=== PATIENT | female | born 1980 | race Caucasian/White ===

== ENCOUNTER 2020-10-16 16:10 | Outpatient (REF) | payer BC, SELFPAY ==
--- NOTE | 2020-10-16 13:45 | PAPFT_PTH ---
PATIENT: Paulette Deleon LOC: N U#:[id number] AGE/SX: 40/F ROOM: RE10/16/[address]: KIKI Chapman : 1980 BED: DIS: 10/16/2020 SPEC #: [id number] RECD: 10/16/20 17:52 STATUS: ALINA REQ #: [id number] ELIAS: 10/16/20 13:[address]: Emmy Dao DEPT: [facility] Cytology RECD BY: Maria Luisa Douglass ENTERED: 10/16/20 17:52 SP TYPE: PAPFT OTHR DR: Odalys Macias Tissues: 1 - CX/ENDOCX FOR PAP SMEARS Procedures: PAP THIN PREP/[facility] Screening HPV DNA PROBE Comments: [id number]
== END 2020-10-16 16:11 | disposition home or self-care (01) ==
LOC: LBN 16:10
PROVIDERS: PCP Family Medicine; Visit Provider Nurse Practitioner Family
DX: Z12.4 Encounter for screening for malignant neoplasm of cervix (principal); Z11.51 Encounter for screening for human papillomavirus (HPV)
CPT/HCPCS: 88142; 87624

== ENCOUNTER 2020-10-23 09:06 | Outpatient (REF) | payer BC, SELFPAY ==
[2020-10-23 17:04] LABS: Calculated LDL 116 mg/dL (<100); Cholesterol 183 mg/dL (<200); Glucose 98 mg/dL (74-106); HDL Cholesterol 57 mg/dL (40-60); Triglyceride 54 mg/dL (<150)
== END 2020-10-23 09:07 | disposition home or self-care (01) ==
LOC: NCHCN 09:06
PROVIDERS: PCP Family Medicine; Visit Provider Internal Medicine
DX: Z00.00 Encounter for general adult medical examination without abnormal findings (principal); E66.9 Obesity, unspecified
CPT/HCPCS: 80061; 82947

== ENCOUNTER 2021-03-16 19:57 | Outpatient (REF) | payer OTHER, SELFPAY ==
[2021-03-17 13:41] LABS: COVID-19 RT-PCR UVMMC Result Negative (Negative)
== END 2021-03-16 19:58 | disposition home or self-care (01) ==
LOC: NCHCN 19:57
PROVIDERS: PCP Family Medicine; Visit Provider Internal Medicine
DX: Z20.822 Contact with and (suspected) exposure to COVID-19 (principal)
CPT/HCPCS: U0003

== ENCOUNTER 2021-08-13 16:24 | Outpatient (REF) | payer OTHER, SELFPAY ==
[2021-08-13 15:34] LABS: CREATININE 0.8 mg/dL (0.55-1.02)
== END 2021-08-13 16:25 | disposition home or self-care (01) ==
LOC: NCHCN 16:24
PROVIDERS: PCP Family Medicine; Visit Provider Internal Medicine
DX: U07.1 COVID-19 (principal)
CPT/HCPCS: 82565

== ENCOUNTER → 2021-12-03 03:08 | Outpatient (CLI) | payer OTHER, SELFPAY ==
--- NOTE | 2021-12-03 07:45 | DI.MAMMO_ITS ---
Exam(s) MAMMO SCREENING EXAM: MAMMO SCREENING CLINICAL HISTORY: screening. TECHNIQUE: Bilateral full field digital CC and MLO mammographic images were obtained with 3D tomosyn thesis and utilizing computer aided detection (CAD). COMPARISON: No priors. This is a baseline mammogram on this 41-year-old patient.. FINDINGS: Benign-appearing lymph nodes are noted in the upper outer quadrant of both breasts. There are no spiculated masses nor malignant appearing microcalcification groups. There is no significant architectural distortion nor skin thickening-retraction. IMPRESSION: No radiographic evidence of malignancy. BI-RADS Category 1 - Negative Breast Density - Category C - Heterogeneously dense Breast density Category C or D implies that the patient has dense breast tissue. Dense breast tissue can make it harder to find cancer on a mammogram. Dense breast tissue is also associated with an incr eased risk of breast cancer. This information about the result of the mammogram report was provided to the patient to raise their awareness. Use this report when you speak with the patient about their risks for breast cancer, which includes their family history. At that time, you may recommend additional screening tests (Ultrasoun d or MRI) as these tests may add significant information. A negative radiographic report should not delay biopsy if a dominant or clinically suspicious mass is present. Up to ten percent of cancers are not identified on mammography. A negative report may reinforce clinical impression. Adenosis and dense breasts may obscure an underlying neoplasm. False positive reports average 6 to 10%. Patient will receive a letter notifying them of these results.
== END ==
PROVIDERS: PCP Family Medicine; Visit Provider Nurse Practitioner Family
DX: Z12.31 Encounter for screening mammogram for malignant neoplasm of breast (principal)
CPT/HCPCS: 77063; 77067

== ENCOUNTER 2022-01-18 09:03 | Emergency (ER) | payer OTHER, SELFPAY ==
--- NOTE | 2022-01-18 09:00 | RT.EKG_ITS ---
APPROVED REPORT Exam: Resting ECG Reason for Exam: dizzy Patient Location: E HR:113 bpm ECG Measurements Heart Rate 113 AXIS VA 154 P 72 QRSd 92 QRS 7 QT 335 T 10 QTc 459 Conclusion Sinus tachycardia...rate> 99 sinus tachycardia 113, normal axis, no STEMI, nondiagnostic EKG
[2022-01-18 09:06] VITALS: BP 158/99; PULSE 117; RESP 16; TEMP 36.7
--- NOTE | 2022-01-18 09:58 | W.ED.GENAD ---
Discharge Plan Disposition Patient Disposition: HOME Condition: Stable Discharge Details Clinical Impression: Lightheadedness Primary Care Provider: Nate Pool ED Provider: Roula Nunez Home Meds and New Rx's Prescriptions: Continued bupropion HCl [Wellbutrin XL] 150 mg tablet extended release 24 hr 150 mg PO QAM ibuprofen 200 MG capsule 200 - 400 mg PO Q6H PRN Discharge Instructions Additional Instructions: Please return immediately to the emergency department if you develop any new or worsening symptoms, if your condition does not improve as expected, or if you become otherwise concerned. It is extremely important that you call soon as possible to make an appointment to be seen in follow-up for this visit by your primary care doctor. Referrals: Nate Pool MD [Primary Care Provider] - Discharge Data Discharge Date/Time-TO BE ENTERED AT DEPARTURE: 01/18/22 13:45 Medical Decision Making Concern for dehydration, metabolic/electrolyte derangement, diffuse skeletal shoulder pain, less likely acute coronary syndrome, pulmonary embolism, other. Exam/history at this time is not consistent with pulmonary infection,, pneumothorax, acute aortic pathology, acute CVA, upper extremity DVT, other acute neurovascular pathology of the left upper extremity, septic arthritis. Plan for EKG, telemetry, IV placement, screening labs, IV fluid hydration. Will monitor and reassess. If initial work-up negative plan for repeat troponin. Patient reports feeling significantly improved and at baseline after IV fluid hydration. She denies having any symptoms. Labs reviewed, troponin negative, D-dimer negative, magnesium 1.7, will replete with p.o. mag. Repeat troponin negative. Patient remains symptom-free. Pt is low risk for ACS by HEART score. I discussed plan to order outpatient stress test, patient states that she would prefer to follow-up with her PCP and have stress test ordered from that visit. I had a discussion with Patient regarding return to emergency department precautions, home care, and importance of outpatient follow-up. Pt verbalizes understanding of the plan and is amenable. Patient discharged to home with clear plan for outpatient follow-up. All questions were answered. Disposition decision was made weighing the risks and benefits of hospitalization versus outpatient treatment, the risk for further decompensation, and the patient's wishes. Medical Records Medical records reviewed: Yes I reviewed the patient's medical records. Lab Data Lab results reviewed: Yes I reviewed the patient's lab results. Labs: Laboratory Tests Range/Units 01/18/22 01/18/22 01/18/22 10:00 10:23 10:23 WBC (4.4-10.8) 10^3/uL 7.18 RBC (3.93-5.22) 10^6/uL 4.47 Hgb (11.2-15.7) g/dL 13.3 Hct (36.0-46.0) % 40.0 MCV (80-95) fL 90 MCH (27.0-33.0) pg 29.8 MCHC (32.0-36.0) % 33.3 RDW (11.7-14.6) % 12.2 Plt Count (130-400) 10^3/uL 318 MPV (8.0-11.0) fL 10.1 Immature Gran % 0.4 Neutrophils % 63.4 Lymphocytes % 29.4 Monocytes % 5.4 Eosinophils % 0.8 Basophils % 0.6 Nucleated RBC % (0.0-0.3) % 0.0 Absolute Neutrophils (1.2-6.7) 10^3/uL 4.55 Absolute Lymphocytes (1.2-3.4) 10^3/uL 2.11 Absolute Monocytes (0.1-0.8) 10^3/uL 0.39 Absolute Eosinophils (0.0-0.7) 10^3/uL 0.06 Absolute Basophils (0.0-0.2) 10^3/uL 0.04 D-Dimer (<500) ng/mlFEU Sodium (136-145) mmol/L 139 Potassium (3.5-5.1) mmol/L 3.7 Chloride (98-107) mmol/L 103 Carbon Dioxide (21.0-32.0) mmol/L 26.7 Anion Gap (3-11) mmol/L 9.3 BUN (7-18) mg/dL 13 Creatinine (0.55-1.02) mg/dL 0.9 Est GFR (CKD-EPI 2020) (mL/min/1.73m2) 81.86 Glucose (74-106) mg/dL 115 H Calcium (8.5-10.1) mg/dL 9.5 Magnesium (1.8-2.4) mg/dL 1.7 L Total Bilirubin (0.2-1.0) mg/dL 0.2 AST (15-37) U/L 16 ALT (14-59) U/L 23 Alkaline Phosphatase (46-116) U/L 62 Troponin I (<or=60) ng/L < 50 Total Protein (6.4-8.2) g/dL 8.6 H Albumin (3.4-5.0) g/dL 3.9 TSH (0.36-3.74) uIU/mL 1.12 Urine Color (Yellow) Yellow Urine Clarity (Clear) Sl Cloudy Urine pH (5-8) 6.5 Ur Specific Philip (1.005-1.025) 1.020 Urine Protein (Negative) mg/dL Negative Urine Ketones (Negative) mg/dL Negative Urine Blood (Negative) Negative Urine Nitrite (Negative) Negative Urine Bilirubin (Negative) Negative Urine Urobilinogen (Up TO 0.2) EU/dL 0.2 Ur Leukocyte Esterase (Negative) Trace H Urine RBC (0-2) HPF Negative Urine WBC (0-5) HPF 5-10 Ur Epithelial Cells (Negative) HPF Moderate Urine Crystals (Negative) HPF Negative Urine Bacteria (Negative) HPF Few Urine Casts (Negative) LPF Negative Urine Mucus (Negative) Negative Urine Other (Negative) Negative Ur Culture Indicated? No/Sq. Contamination Urine Glucose (Negative) mg/dL Negative Range/Units 01/18/22 01/18/22 10:23 12:45 WBC (4.4-10.8) 10^3/uL RBC (3.93-5.22) 10^6/uL Hgb (11.2-15.7) g/dL Hct (36.0-46.0) % MCV (80-95) fL MCH (27.0-33.0) pg MCHC (32.0-36.0) % RDW (11.7-14.6) % Plt Count (130-400) 10^3/uL MPV (8.0-11.0) fL Immature Gran % Neutrophils % Lymphocytes % Monocytes % Eosinophils % Basophils % Nucleated RBC % (0.0-0.3) % Absolute Neutrophils (1.2-6.7) 10^3/uL Absolute Lymphocytes (1.2-3.4) 10^3/uL Absolute Monocytes (0.1-0.8) 10^3/uL Absolute Eosinophils (0.0-0.7) 10^3/uL Absolute Basophils (0.0-0.2) 10^3/uL D-Dimer (<500) ng/mlFEU 340 Sodium (136-145) mmol/L Potassium (3.5-5.1) mmol/L Chloride (98-107) mmol/L Carbon Dioxide (21.0-32.0) mmol/L Anion Gap (3-11) mmol/L BUN (7-18) mg/dL Creatinine (0.55-1.02) mg/dL Est GFR (CKD-EPI 2020) (mL/min/1.73m2) Glucose (74-106) mg/dL Calcium (8.5-10.1) mg/dL Magnesium (1.8-2.4) mg/dL Total Bilirubin (0.2-1.0) mg/dL AST (15-37) U/L ALT (14-59) U/L Alkaline Phosphatase (46-116) U/L Troponin I (<or=60) ng/L < 50 Total Protein (6.4-8.2) g/dL Albumin (3.4-5.0) g/dL TSH (0.36-3.74) uIU/mL Urine Color (Yellow) Urine Clarity (Clear) Urine pH (5-8) Ur Specific Philip (1.005-1.025) Urine Protein (Negative) mg/dL Urine Ketones (Negative) mg/dL Urine Blood (Negative) Urine Nitrite (Negative) Urine Bilirubin (Negative) Urine Urobilinogen (Up TO 0.2) EU/dL Ur Leukocyte Esterase (Negative) Urine RBC (0-2) HPF Urine WBC (0-5) HPF Ur Epithelial Cells (Negative) HPF Urine Crystals (Negative) HPF Urine Bacteria (Negative) HPF Urine Casts (Negative) LPF Urine Mucus (Negative) Urine Other (Negative) Ur Culture Indicated? Urine Glucose (Negative) mg/dL ECG Data Attestation: I personally reviewed and interpreted this ECG (s) as follows: Interpretation: EKG shows sinus tachycardia 113, normal axis, no STEMI, nondiagnostic EKG HPI General Mode of arrival: ambulatory. Date/Time Provider Initiated Documentation: 01/18/22 09:34. Limitations to Documentation: no limitations. Information obtained by: patient, RN notes reviewed and old records reviewed. HPI Narrative: Paulette Deleon is a 41-year-old woman with history of hemorrhagic stroke, anxiety presenting to emergency department with lightheadedness. Patient reports that she woke up this morning and went to work as usual. She notes while at work she felt unusually tired and had some mild soreness in her left shoulder. Patient reports that its not unusual for her to have some soreness in her shoulders or back from sleeping in a certain position, but she states that the soreness in her left shoulder was something she did not recall having in the past. She reports it was very mild. She also noticed tingling in the fingers of both of her hands. Patient states that she felt unusually tired and decided that it would be best if she left work and went home. She states that while she was driving home she had a sensation that she would pass out. She had no vertigo/spinning sensation, no palpitations, no pain at that time. Patient states that at that time she decided to come to the emergency department. She denies any current pain other than mild soreness in her left shoulder as above, denies fever, cough, shortness of breath, vomiting, diarrhea, numbness, weakness, rash. Patient reports that in 2018 she had shingles in the left side of her face and had a small amount of bleeding in her brain in the occipital region. 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 Patient reports that no cause of the bleeding was ever determined, and it was unclear whether was related in someway to her shingles infectious process. Patient states that none of her symptoms feel similar to that at this time. She denies recent illness. Has had normal appetite recently. Patient reports that she typically drinks 6 or so alcoholic beverages a week, but over the past few days drank more than usual due to multiple social events occurring. Denies recreational drug use, denies tobacco/nicotine use. Related Data Home Medications Medication Instructions Recorded Confirmed ibuprofen 200 mg capsule 200 - 400 mg PO Q6H PRN 12/26/15 08/04/18 bupropion HCl 150 mg 24 hr tablet, 150 mg PO QAM 10/16/20 extended release (Wellbutrin XL) Allergies Allergy/AdvReac Type Severity Reaction Status Date / Time cephalexin [From Keflex] Allergy Rash Verified 10/16/20 15:17 shrimp Allergy Hives Verified 10/16/20 15:17 General Stated Complaint: GenMedical AL: 3 Review of Systems Narrative: Constitutional: denies fevers, reports fatigue Eyes: denies eye pain ENT: denies ear pain, dental pain, sore throat Cardiovascular: denies chest pain, edema, reports lightheadedness Respiratory: denies SOB, cough GI: denies abdominal pain, vomiting, diarrhea : denies flank pain MSK: Reports mild left shoulder pain, denies back pain, neck pain, other arthralgias, myalgias Skin: denies rash Neuro: denies headaches, numbness, weakness PFSH All Active Problems Lightheadedness (Acute) Missed menses (Acute) Anxiety (Chronic) Stroke, hemorrhagic (Acute) 2018 Family History Father Essential hypertension Sister Essential hypertension Social History Smoking/Tobacco Use Status: Never Smoking risk assessment performed?: Yes Alcohol Intake: current Alcohol Intake frequency: a few times a week Alcohol type: beer Drug use: Never Do you feel safe at home: Yes Do you feel safe in your relationship?: Yes Exam Narrative Exam Narrative: Constitutional: well and [id number], pleasant, conversing normally HENT: head atraumatic/normocephalic/normal inspection, mucous membranes moist Eyes: conjunctiva normal, sclera normal, pupils 3mm b/l, ERRLA, EOMI, no nystagmus Neck: no stridor, normal ROM, trachea midline Chest: normal inspection Resp: normal work of breathing, speaking in full sentences Cardio: normal rate, normal rhythm Back: normal inspection, no rash Skin: warm, dry, normal color, no rash Neuro: alert, not altered, bss solution architect 2-12 intact, motor 5 out of 5 throughout, normal tone Ext: no edema, no posterior calf tenderness to palpation, mild posterior tenderness of the left shoulder that reproduces pain, no edema, full range of motion of the shoulder, radial pulses intact Psych: normal mood, normal affect, normal behavior Course Vital Signs Vital signs: Vital Signs Temperature 36.7 C 01/18/22 09:06 Pulse 117 H 01/18/22 09:06 Respiratory Rate 16 01/18/22 09:06 Blood Pressure 158/99 H 01/18/22 09:06 Temperature 36.7 C 01/18/22 09:06 Temperature Source Tympanic 01/18/22 09:06 Pulse 117 H 01/18/22 09:06 Respiratory Rate 16 01/18/22 09:06 Respiratory Effort Non-Labored 01/18/22 09:19 Respiratory Depth Normal 01/18/22 09:19 Respiratory Pattern Normal 01/18/22 09:19 Blood Pressure 158/99 H 01/18/22 09:06 Blood Pressure Position Sitting 01/18/22 09:06 Oxygen Delivery Method Room Air 01/18/22 09:06 Oxygen Flow Rate 0 01/18/22 09:06 PAWSS Have you Been Recently Intoxicated or Drunk Within the Last 30 days?: Yes Have you Ever Experienced Previous Episodes of Alcohol Withdrawal?: No Have you ever Experienced Withdrawal Seizures?: No Have you ever Experienced Delirium Tremens(DT)s?: No Have you ever undergone Alcohol Rehabilitation Treatment (i.e, inpt ot outpatient treatment programs)?: No Have you ever Experienced Blackouts?: No Have you ever Combined Alcohol with other Downers within the last 90 days?: No Have you ever Combined Alcohol with any other Substance of Abuse during the last 90 days?: No Positive Blood Alcohol level on Presentation? [PCS.BAL]: No Evidence of Increased Autonomic Activity (i.e. HR>120, tremor, sweating, agitation, nausea)?: No Result: 1
[2022-01-18 10:21] LABS: Bilirubin Negative (Negative); Blood Negative (Negative); Clarity Sl Cloudy (Clear); Glucose Negative (Negative); Ketones Negative (Negative); Leukocyte Esterase Trace (Negative); Nitrite Negative (Negative); Urobilinogen 0.2 EU/dL (Up TO 0.2); pH 6.5 (5-8)
[2022-01-18 10:37] LABS: Abs Immature Grans 0.03 10^3/uL (0.0-0.06); Absolute Basophil Count 0.04 10^3/uL (0.0-0.2); Absolute Eosinophil Count 0.06 10^3/uL (0.0-0.7); Absolute Lymphocyte Count 2.11 10^3/uL (1.2-3.4); Absolute Monocyte Count 0.39 10^3/uL (0.1-0.8); Absolute Neutrophil Count 4.55 10^3/uL (1.2-6.7); Basophils % 0.6; Eosinophils % 0.8; HGB 13.3 g/dL (11.2-15.7); Immature Grans % 0.4; Lymphocytes % 29.4; MCH 29.8 pg (27.0-33.0); MCHC 33.3 % (32.0-36.0); MCV 90 fL (80-95); MPV 10.1 fL (8.0-11.0); Monocytes % 5.4; Neutrophils % 63.4; Platelet Count 318 10^3/uL (130-400); RBC 4.47 10^6/uL (3.93-5.22); RDW 12.2 % (11.7-14.6); RDW-SD 39.7 fL; WBC 7.18 10^3/uL (4.4-10.8)
[2022-01-18 10:41] LABS: Bacteria Few HPF (Negative); C & S Indicated? No/Sq. Contamination; Casts Negative LPF (Negative); Crystals Negative HPF (Negative); Epithelial Cells Moderate HPF (Negative); Mucus Negative (Negative); Other Cells Negative (Negative); RBC Negative HPF (0-2)
[2022-01-18] MEDS: Normal Saline 1,000 ML 1000 ML IV (10:54)
[2022-01-18 11:02] LABS: ALT 23 U/L (14-59); AST 16 U/L (15-37); Albumin 3.9 g/dL (3.4-5.0); Alkaline Phosphatase 62 U/L (46-116); Anion Gap 9.3 mmol/L (3-11); BUN 13 mg/dL (7-18); Bilirubin, Total 0.2 mg/dL (0.2-1.0); CO2 26.7 mmol/L (21.0-32.0); CREATININE 0.9 mg/dL (0.55-1.02); Calcium 9.5 mg/dL (8.5-10.1); Chloride 103 mmol/L (98-107); Estimated GFR 81.86 (mL/min/1.73m2); Glucose 115 mg/dL (74-106); Magnesium 1.7 mg/dL (1.8-2.4); Potassium 3.7 mmol/L (3.5-5.1); Sodium 139 mmol/L (136-145); TSH (W/Ref FT4) 1.12 uIU/mL (0.36-3.74); Total Protein 8.6 g/dL (6.4-8.2); Troponin I < 50 ng/L (<or=60)
[2022-01-18 11:13] LABS: D-Dimer 340 ng/mlFEU (<500)
[2022-01-18] MEDS: Magnesium Oxide 400 MG TAB PO (11:51)
[2022-01-18 13:14] LABS: Troponin I < 50 ng/L (<or=60)
== END 2022-01-18 13:45 | disposition home or self-care (01) ==
PROVIDERS: Emergency Provider Student in an Organized Health Care Education/Training Program; PCP Internal Medicine
DX: R42 Dizziness and giddiness (principal); Z86.73 Personal history of transient ischemic attack (TIA), and cerebral infarction without residual deficits
CPT/HCPCS: 36415; 80053; 93005; 96360; 99284; 81003; 81015; 83735; 84443; 84484; 85025; 85379; 93010; 99282

== ENCOUNTER 2023-03-09 14:01 | Outpatient (REF) | payer BC, SELFPAY | END 2023-03-09 14:02 | disposition home or self-care (01) | LOC: NCHCN 14:01 | PROVIDERS: PCP Internal Medicine; Visit Provider Family Medicine | DX: Z01.419 Encounter for gynecological examination (general) (routine) without abnormal findings (principal) | CPT/HCPCS: 87480; 87510; 87660 ==

== ENCOUNTER 2023-12-16 00:48 | Outpatient (CLI) | payer BC, SELFPAY ==
--- OUTSIDE RECORDS SUMMARY | 2023-12-16 01:00 | XMS_ITS | Encounter Summary ---
Author Organization [facility] Address [address] [place] [address] Care Team Providers Care Investigation Officer Name Role Phone Odalys Macias MD Primary Care Provider [phone] Encounter Details Date Type Department Care Team (Late st Contact Info) Description 10/20/2020 Lab Requisition [facility] Pathology & Laboratory Medicine - [address] [address] Emmy Dao, [facility] [address] [place] [phone] Encounter for other general examination Social History Tobacco Use Types Packs/Day Years Used Date Smoking Tobacco: Never Smokeless Tobacco: Never Alcohol Use Standard Drinks/Week Comments Yes 0 (1 standard drink = 0.6 oz pur e alcohol) social Interpersonal Safety Answer Date Record ed Physically Hurt Never 11/04/2019 Verbally Threaten Not on file 11/04/2019 Sex and Gender Information Value Date Recorded Sex Assigned at Not on file Gender Identity Not on file Sexual Orientation Not on file documented as of this encounter Functional Status Functional Status Response Date of Assess ment Are you deaf or do you have serious difficulty h earing? No 08/18/2017 Are you blind or do you have serious difficulty seeing, even when wearing glasses? No 08/18/2017 Do you have serious difficul ty walking or climbing stairs? (5 years old or older) No 08/18/2017 Do you have difficulty dress ing or bathing? (5 years old or older) No 08/18/2017 Because of a physical, menta l, or emotional condition, does this person have difficulty doing errands alone such as visiting a doctor's office or shopping? No 09/20/2017 Cognitive Status Response Date of Assessm ent Because of a physical, menta l, or emotional condition, does this person have serious difficulty concentrating, remembering, or making decisions? No 09/20/2017 documented as of this encounter Plan of Treatment Not on file documented as of this encounter Procedures Procedure Name Priority Date/Time Associated Diagnosis Comments PAP TEST Today 10/16/2020 13:45 EDT Encounter for other general examination HPV DNA DETECTION WITH GENOTYPING, PCR Today 10/16/2020 13:45 EDT Encounter for other general examination documented in this encounter Results * HUMAN PAPILLOMAVIRUS (HPV) DETECTION-HIGH RISK TYPES (10/16/2020 13:45 EDT) HPV other High Risk types, PCR Negative Negative 10/30/2020 14:45 EDT [facility] Comment:No E6 or E7 mRNA is detected from HPV types 16,18,31,33,35,39,45,51,52,56,58,59,66, and 68 by catering coordinator mediated amplification. Papanicolaou smear specimen (specimen) CERVIX UTERI STRUCTURE / Unknown 10/16/2020 13:45 EDT 10/29/2020 10:50 EDT Emmy Dao FRAME COVERER MICROBIOLOGY - GENER AL ORDERABLES [facility] [address] [place] [address] * PAP TEST (10/16/2020 13:45 EDT) Specimens A. Cervix and/or Endocervix , ThinPrep Imaging System with Manual Evaluation 10/30/2020 14:45 EDT [facility] Specimen Adequacy Satisfactory for Evaluation - transformation zone component present 10/30/2020 14:45 EDT [facility] General Categorization Negative for intraepithelial lesion or malignancy 10/30/2020 14:45 EDT [facility] Attestation . 10/30/2020 14:45 EDT [facility] at 1444 Clinical History See below 10/31/19 14:45 EDT [facility] HPV The result for the Human Papillomavirus (HPV) Detection-High Risk Types is Negative. No E6 or E7 mRNA is detected from HPV types 16,18,31,33,35,39 ,45,51,52,56,58,5 9,66, and 68 by catering coordinator mediated amplification.Mya ting was performed on specimen [id number] and was resulted on 10/30/2020 1345 EDT by CHRISTINA, LAB INSTRUMENT RESULTS IN 10/30/2020 14:45 EDT [facility] Performing Lab [facility] 10/30/2020 14:45 EDT [facility] Scanned Images 10/30/2020 14:45 EDT [facility] Papanicolaou smear specimen (specimen) CERVIX UTERI STRUCTURE / Unknown 10/16/2020 13:45 EDT 10/20/2020 8:23 EDT Emmy Dao FRAME COVERER PATHOLOGY ORDERABLES Performing Organization Address City/State/[facility] Co de Phone Number [facility] [address] [place] [phone] documented in this encounter Visit Diagnoses Diagnosis Encounter for other general examination documented in this encounter Care Teams Investigation Officer Relationship Specialty Start Date End Date Odalys Macias MD [address] [place] [address] PCP - General 08/17/17 documented as of this encounter
--- OUTSIDE RECORDS SUMMARY | 2023-12-16 01:00 | XMS_ITS | Encounter Summary ---
Author Organization [facility] Address [address] [place] [address] Care Team Providers Care Sub Acute Care Nurse Name Role Phone Odalys Macias MD Primary Care Provider [phone] Reason for Visit * Reason Onset Date Comments Appointment Related 11/14/2017 Encounter Details Date Type Department Care Team (Late st Contact Info) Description 11/14/2017 Telephone [facility] Neurosurgery - Main [address] [address] Gisele Mccrary MD [address] [place] [address] Appointment Related Social History Tobacco Use Types Packs/Day Years Used Date Smoking Tobacco: Never Smokeless Tobacco: Never Alcohol Use Standard Drinks/Week Comments Yes 0 (1 standard drink = 0.6 oz pur e alcohol) social Sex and Gender Information Value Date Recorded [...] No 09/20/2017 documented as of this encounter Miscellaneous Notes * Telephone Encounter - Lashon Garcia - 11/14/2017 1303 EDT LM for patient with the following appointment details: Date:11/15/2017 Arrival time:9am for 9:30 MRI Appt time:11am Provider:Dr. Mccrary Location: 3rd floor registration then EP5 Advised patient to contact our office with any questions. The phone number and directions to the clinic were provided. documented in this encounter Plan of Treatment Not on file documented as of this encounter Visit Diagnoses Not on filedocumented in this encounter Care Teams Sub Acute Care Nurse Relationship Specialty Start Date End Date Odalys Macias MD [address] [place] [phone] PCP - General 08/17/17 documented as of this encounter
--- OUTSIDE RECORDS SUMMARY | 2023-12-16 01:00 | XMS_ITS | Encounter Summary ---
Author Organization [facility] Address [address] [place] [address] Care Team Providers Care Science Teacher Name Role Phone Odalys Macias MD Primary Care Provider [phone] Encounter Details Date Type Department Care Team (Late st Contact Info) Description 03/16/2021 Lab Requisition [facility] Pathology & Laboratory Medicine - [address] [address] Outr Resulting Lab, Provider Social History Tobacco Use Types Packs/Day Years [...] Procedure Name Priority Date/Time Associated Diagnosis Comments ZZCOVID-19 TEST [facility] PCR Today 03/16/2021 9:45 EST COVID-19 TESTING Routine 03/16/2021 9:45 EST documented in this encounter Results * COVID-19 TEST [facility] PCR (03/16/2021 9:45 EST) Swab 03/16/2021 9:45 EST 03/16/2021 22:36 EST Provider Outr Resulting Lab MICROBIOLOGY - GENERAL ORDERABLES Performing Organization Address City/State/[facility] Co de Phone Number [facility] [address] [place] [phone] * COVID-19 TESTING (03/16/2021 9:45 EST) COVID-19 rt-PCR Result Negative Negative 03/17/2021 13:36 EST [facility] Comment: This test has not been FDA cleared or approved. This test has been authorized by FDA under an EUA for use by authorized laboratories. This test has been authorized only for detection of nucleic acid from 2019-nCoV, not for any other viruses or pathogens. This test is only authorized for the duration of the declaration that circumstances exist justifying the authorization of emergency use of in vitro diagnostic tests for detection and/or diagnosis of 2019-nCoV under section 564(b)(1) of Act, 21 U.S.C ?? 360bbb-3(b) (1), unless the authorization is terminated or revoked sooner. Negative results do not preclude 2019-nCoV infection and should not be used as the sole basis for treatment or other patient management decisions. Negative results must be combined with clinical observations, patient history, and epidemiological information. Performed on the Indisys Fusion instrument Performing Lab [facility] 03/17/2021 13:36 EST [facility] Swab 03/16/2021 9:45 EST 03/16/2021 22:36 EST Provider Outr Resulting Lab MICROBIOLOGY - GENERAL ORDERABLES [facility] [address] [place] [address] documented in this encounter Visit Diagnoses Not on filedocumented in this encounter Care Teams Science Teacher Relationship Specialty Start Date End Date Odalys Macias MD [address] [place] [phone] PCP - General 08/17/17 documented as of this encounter
--- OUTSIDE RECORDS SUMMARY | 2023-12-16 01:00 | XMS_ITS | Encounter Summary ---
Author Organization [facility] [place] Address [address] [place] [address] Care Team Providers Care Mva Operator Name Role Phone Odalys Macias MD Primary Care Provider [phone] Reason for Visit * Reason Onset Date Comments Paperwork request 10/20/2017 Encounter Details Date Type Department Care Team (Late st Contact Info) Description 10/20/2017 Telephone [facility] Neurosurgery - Main [place] [address] [place] [address] Gisele Mccrary MD [address] [place] [address] Paperwork request Social History Tobacco Use Types Packs/Day Years [...] encounter Miscellaneous Notes * Telephone Encounter - Daxa Danielle RN - 10/20/2017 1526 EDT Letter faxed as requested. * Telephone Encounter - Anjelica Villeda - 10/20/2017 1446 EDT Patient called back and would like a letter similar to the one from 09/21/2017 stating she can workpart time until her follow up visit on 11/15/2017. Please fax to [employer]. documented in this encounter Plan of Treatment Not on file documented as of this encounter Visit Diagnoses Not on filedocumented in this encounter Care Teams Mva Operator Relationship Specialty Start Date End Date Odalys Macias MD [address] [place] [address] PCP - General 08/17/17 documented as of this encounter
--- OUTSIDE RECORDS SUMMARY | 2023-12-16 01:00 | XMS_ITS | Encounter Summary ---
Author Organization [facility] Address [address] [place] [address] Care Team Providers Care Print Inspector Name Role Phone Odalys Macias MD Primary Care Provider [phone] Encounter Details Date Type Department Care Team (Latest Contact Info) Description 11/15/2017 8:33 EDT - 11/15/2017 23:59 EDT Hospital Encounter [address] [address] Gisele Mccrary MD [address] [place] [phone] Discharge Disposition: Auto Discharge Social History Tobacco Use Types Packs/Day Years [...] No 09/20/2017 documented as of this encounter Discharge Diagnoses Diagnosis I61.1 Nontraumatic intracerebral hemorrhage in hemisphere, 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 08/20/2017 gabapentin (NEURONTIN) 300 mg capsule Take 300 mg by mouth 3 times daily as needed. ibuprofen (MOTRIN) 200 mg tablet Take 200 mg by mouth as needed. oxyCODONE (ROXICODONE) 5 mg immediate release tablet Take 1 Tab by mouth every 8 hours as needed for Pain (discomfort). Earliest Fill Date: 08/20/17 Daily Max: 15 mg 10 Tab 08/20/2017 documented as of this encounter Discharge Disposition Disposition Code Departure Means Destination Auto Discharge Home documented in this encounter Plan of Treatment Not on file documented as of this encounter Visit Diagnoses Not on filedocumented in this encounter Orders IV Count Last Ordered Date First Orde red Date IV REQUEST 1 11/15/2017 documented in this encounter Care Teams Print Inspector Relationship Specialty Start Date End Date Odalys Macias MD [address] [place] [phone] PCP - General 08/17/17 documented as of this encounter
--- OUTSIDE RECORDS SUMMARY | 2023-12-16 01:00 | XMS_ITS | Encounter Summary ---
Author Organization [facility] Address [address] [place] [address] Care Team Providers Care Hackler Doll Wigs Name Role Phone Odalys Macias MD Primary Care Provider [phone] Reason for Visit * Reason Onset Date Comments Paperwork request 10/17/2017 Encounter Details Date Type Department Care Team (Late st Contact Info) Description 10/17/2017 Telephone [facility] Neurosurgery - Main [place] [address] [place] [address] Gisele Mccrary MD [address] [place] [address] Paperwork request Social History Tobacco [...] Miscellaneous Notes * Telephone Encounter - Lashon Haney - 10/17/2017 1419 EDT Short term disability forms faxed back to [employer]. documented in this encounter Plan of Treatment Not on file documented as of this encounter Visit Diagnoses Not on filedocumented in this encounter Care Teams Hackler Doll Wigs Relationship Specialty Start Date End Date Odalys Macias MD [address] [place] [address] PCP - General 08/17/17 documented as of this encounter
--- OUTSIDE RECORDS SUMMARY | 2023-12-16 01:00 | XMS_ITS | Encounter Summary ---
Author Organization [facility] Address [address] [place] [address] Care Team Providers Care Brewery Cellar Worker Name Role Phone Odalys Macias MD Primary Care Provider [phone] Reason for Visit * Reason Onset Date Comments Appointment Related 11/03/2017 Encounter Details Date Type Department Care Team (Late st Contact Info) Description 11/03/2017 Telephone [facility] Adult Neurology - [address] [address] Clement Mason MD [address] [place] [address], [address] [place] [address] Appointment Related Social History Tobacco Use Types [...] encounter Miscellaneous Notes * Telephone Encounter - Monica Tijerina - 11/07/2017 1446 EDT Spoke to Paulette and scheduled DFUR 30 for 12/26/17 at 9:30 AM * Telephone Encounter - Berta Leon - 11/03/2017 1036 EDT Reason for Call: Appointment Related Call Detail: I left a message for Paulette to call and schedule her DFU30 with Dr. Mason Last visit: 08/18/17 inpatient Next visit: LUPILLO Leon 11/03/2017 10:36 documented in this encounter Plan of Treatment Not on file documented as of this encounter Visit Diagnoses Not on filedocumented in this encounter Care Teams Brewery Cellar Worker Relationship Specialty Start Date End Date Odalys Macias MD [address] [place] [address] PCP - General 08/17/17 documented as of this encounter
--- OUTSIDE RECORDS SUMMARY | 2023-12-16 01:00 | XMS_ITS | Encounter Summary ---
Author Organization [facility] Address [address] [place] [address] Care Team Providers Care Carrot Grader Inspector Name Role Phone Odalys Macias MD Primary Care Provider [phone] Reason for Visit * Reason Onset Date Comments Paperwork request 10/25/2017 Encounter Details Date Type Department Care Team (Late st Contact Info) Description 10/25/2017 Telephone [facility] NEUROSURGERY [address] [place] [address] Gisele Mccrary MD [address] [place] [address] Paperwork request Social History Tobacco Use Types [...] encounter Miscellaneous Notes * Telephone Encounter - Justus Browne - 10/25/2017 1021 EDT Letter mailed to address provided * Telephone Encounter - Nette Cabrera - 10/25/2017 0831 EDT Reason for Call: Paperwork request Summary/Symptoms: Patient would like a copy of the letter that was sent to [facility] mailed to her at [address] [place] [id number] Patient wanted a big thank you sent to Daxa Cabrera 10/25/2017 8:32 documented in this encounter Plan of Treatment Not on file documented as of this encounter Visit Diagnoses Not on filedocumented in this encounter Care Teams Carrot Grader Inspector Relationship Specialty Start Date End Date Odalys Macias MD [address] [place] [address] PCP - General 08/17/17 documented as of this encounter
--- OUTSIDE RECORDS SUMMARY | 2023-12-16 01:00 | XMS_ITS | Encounter Summary ---
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) Gisele Mccrary MD [address] [place] [phone] Clement Mason MD [address] [place] [phone] Referral ID Status Reason Start Date Expiration Date Visits Requested Visits Authorized [id number] Specialty Report Received Specialty Services Required 09/20/2017 1 1 Encounter Details Date Type Department Care Team (Late st Contact Info) Description 12/26/2017 9:30 EDT Office Visit [facility] Adult Neurology - [address] [address] Clement Mason MD [address] [place] [phone] 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) (Primary Dx) Social History Tobacco Use Types Packs/Day Years Used Date Smoking Tobacco: Never Smokeless Tobacco: Never Alcohol Use Standard Drinks/Week Comments Yes 0 (1 standard drink = 0.6 oz pur e alcohol) social Sex and Gender Information Value Date Recorded Sex Assigned at Not on file Gender Identity Not on file Sexual Orientation Not on file documented as of this encounter Last Filed Vital Signs Vital Sign Reading Time Taken Comments Blood Pressure 138/82 12/26/2017916 EDT Pulse 108 12/26/2017916 EDT Temperature - - Respiratory Rate 14 12/26/2017916 EDT Oxygen Saturation 100% 12/26/2017916 EDT Inhaled Oxygen Concentration - - Weight 97.5 kg (215 lb) 12/26/2017916 EDT Height 157.5 cm (5' 2) 12/26/2017916 EDT Body Mass Index 39.32 12/26/2017916 EDT documented in this encounter Functional Status Functional Status Response [...] No 09/20/2017 documented as of this encounter Progress Notes * Clement Mason MD - 12/26/2017 0930 EDT [facility] Neurology Consult Follow Up Note Date of Service: 12/26/2017 PCP: Odalys Macias Follow up for: spontaneous ICH Chief Complaint Patient presents with ??? Hospital Discharge Follow Up Nontraumatic Cortical Hemorrhage of Cerebral Hemisphere Subjective: Paulette has had no recurrent or new neurological symptoms. She occasionally has visual phenomena when she is tired or overwhelmed. She has general fatigue. Interval History: MRI with and without sshows no underlying pathology Medications and Allergies: Outpatient Prescriptions Marked as Taking for the 12/26/17 encounter (Office Visit) with Clement Mason MD Medication Sig Dispense Refill ??? ibuprofen (MOTRIN) 200 mg tablet Take 200 mg by mouth as needed. Allergies Allergen Reactions ??? Keflex [Cephalexin] Pt reported she had taken it in the past and was allergic. ??? Shrimp Objective/Physical Exam: Vital Signs: BP 138/82 (BP Cuff Location: Right arm, Patient Position: Sitting, BP Cuff Sizes: Adult, large) Pulse (!) 108 Resp 14 Ht 157.5 cm (62) Wt 97.5 kg (215 lb) LMP 11/28/2017 (Approximate) SpO2 100% BMI 39.32 kg/m2 Review of Systems: Pertinent items are noted in Subjective/HPI Neurological Exam: Mental Status:Level of arousal: Awake and alert, Language: Normal language function, Affect: appropriate Cranial Nerves:at bedside fiedls quite good, has seen neruo ophthalmoology Motor:Bulk: Normal Tone: Normal Power: Normal muscle power Sensation:no subjective loss Cerebellar Function:Normal cerebellar function Station and Gait:Normal gait and station Assessment: 37 yo with spontaneous ICH which occurred at a time with coinciding to a outbreak of zoster. All studies (conventional angio, LP and repeat MRI) have been unremarkable for identifying a definitive etiology. She continues to have post ICH fatigue which she should be aware of have accomodations as this might effect her vision. I would estimate this could continue to be present for a year of so after her ICH. I would be happy to see her again if the need arises. I answered all her her and her mother's questions. Recommendations and Plan: There are no diagnoses linked to this encounter. 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
--- OUTSIDE RECORDS SUMMARY | 2023-12-16 01:00 | XMS_ITS | Encounter Summary ---
Author Organization [facility] Address [address] [place] [address] Care Team Providers Care Residential Green Building Designer Name Role Phone Odalys Macias MD Primary Care Provider [phone] Reason for Visit * Reason Comments Follow-up MRI today Encounter Details Date Type Department Care Team (Latest Contact Info) Description 11/15/2017 11:00 EDT Office Visit 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 Paulette is a 37 y.o. female who was hospitalized on 08/18/17 after having sudden onset of right inferior visual field loss. She was seen by ophthalmology who sent her for a CT which demonstrateda small left occipital ICH. She was neurologically intact other than the right visual field loss. She underwent a MRI, CTA, cerebral angiogram and LP as an inpatient - all of which were negative. Shehad a history of recent shingles outbreak and was treated empirically with acyclovir however all viral and inflammatory markers were negative. She returns today for a three month follow- up with imaging. Since Paulette was seen last in September, she has been doing well. She was seen by Dr. Hayden in October 2016 and was noted to have improvement in her right visual field loss. She is set up to see vascular neurology in December. Paulette reports no headaches and is feeling nearly back to normal. She is still fatigued which she relates to going back to work at a stressful job. On exam, she is awake and alert. Her exam in non-focal with the exception of a very mild right inferior visual field cut. MRI today demonstrates continued resolution of the small left occipital ICH without any new radiographic findings. The post-contrast imaging does not demonstrate any pathology of concern. A MRA was not done today. In summary, Paulette is a 37 y.o. female three months s/p a left occipital ICH of unknown etiology. Her MRI with contrast today does not demonstrate any concerning findings although the MRA was not completed. At present, Paulette is doing very well with improvement in her visual field loss. At this point, her neurosurgical follow-up can be on a prn basis and I will leave it up to vascular neurology as to whether they would like to repeat any vascular imaging in the future. All questions were answeredto her satisfaction today. I spent a total of 25 minutes in face to face time with this patient today and 20 minutes of that time was spent counseling the patient on cerebral hemorrhage. 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
--- OUTSIDE RECORDS SUMMARY | 2023-12-16 01:00 | XMS_ITS | Clinical Summary ---
Author Organization [facility] Address [address] [place] [address] Care Team Providers Care Commercial Engineer Name Role Phone Odalys Macias MD Primary Care Provider [phone] Allergies Active Allergy Reactions Criticality Noted Date Comments Cephalexin 08/23/2017 Pt reported she had taken it in the past and was allergic. Shrimp 08/17/2017 Medications Medication Sig Dispensed Refills Start Date End Date Status gabapentin (NEURONTIN) 300 mg capsule Take 300 mg by mouth 3 times daily as needed. Active ibuprofen (MOTRIN) 200 mg tablet Take 200 mg by mouth as needed. Active acetaminophen (TYLENOL) 325 mg tablet Take 2 Tabs by mouth every 4 hours as needed for Pain. 08/20/2017 Active Additional Information Patient not taking.Reported on 12/26/2017 oxyCODONE (ROXICODONE) 5 mg immediate release tablet Take 1 Tab by mouth every 8 hours as needed for Pain (discomfort). Earliest Fill Date: 08/20/17 Daily Max: 15 mg 10 Tab 08/20/2017 Active Additional Information Patient not taking.Reported on 11/15/2017 Active Problems Problem Noted Date Diagnosed Date Visual field defect 10/13/2017 Nontraumatic cortical hemorr juan of cerebral hemisphere (HCC-CMS) 08/18/2017 Surgical History Surgery Date Site/Laterality Comments TYMPANOSTOMY TUBE PLACEMENT Medical History Medical History Date Comments Shingles Psoriasis Shingles (herpes zoster) polyneuropathy Family History Medical History Relation Comments Cataract Father Glaucoma Paternal Grandmother Macular Degeneration Paternal Grandmother Relation Status Comments Father Alive Mother Alive Paternal Grandmother Social History Tobacco Use Types Packs/Day Years [...] on file Sexual Orientation Not on file Obstetrics History Last Filed Vital Signs Vital Sign Reading Time Taken Comments Blood Pressure 138/82 12/26/2017916 EDT Pulse 108 12/26/2017916 EDT Temperature 36.8 ??C (98.2 ??F) 08/20/2017 0955 EDT Respiratory Rate 14 12/26/2017916 EDT Oxygen Saturation 100% 12/26/2017916 EDT Inhaled Oxygen Concentration - - Weight 97.5 kg (215 lb) 12/26/2017916 EDT Height 157.5 cm (5' 2) 12/26/2017916 EDT Body Mass Index 39.32 12/26/2017916 EDT Plan of Treatment Health Maintenance Due Date Last Done Comments Hepatitis C Screen 1980 Hepatitis B Vaccine (1 of 3 - 19+ 3-dose series) 07/08 COVID-19 Vaccine ( - season) 2023 Advance Directives For more information, please contact: [phone] * Full Code (Latest Code Status on File) Date Activated Date Inactivated Comments 08/18/2017 3:37 08/20/2017 16:51 Question Answer Comments Reason for decision includes: Full code consistent with overall plan of care Who participated in the discussion? Not Discusse d Care Teams Commercial Engineer Relationship Specialty Start Date End Date Odalys Macias MD [address] [place] [address] PCP - General 08/17/17
--- OUTSIDE RECORDS SUMMARY | 2023-12-16 01:00 | XMS_ITS | Referral Summary ---
Author Organization Health system Address [address] [place] [address] Care Team Providers Care Cuff Runner Name Role Phone Odalys Macias MD Primary Care Provider [phone] Allergies Active Allergy Reactions Criticality Noted Date [...] hemorr juan of cerebral hemisphere (HCC-CMS) 08/18/2017 Social History Tobacco Use Types Packs/Day Years [...] on file Sexual Orientation Not on file Last Filed Vital Signs Vital Sign Reading Time Taken Comments Blood Pressure 138/82 12/26/2017916 EDT Pulse 108 12/26/2017916 EDT Temperature 36.8 ??C (98.2 ??F) 08/20/2017 0955 EDT Respiratory Rate 14 12/26/2017916 EDT Oxygen Saturation 100% 12/26/2017916 EDT Inhaled Oxygen Concentration - - Weight 97.5 kg (215 lb) 12/26/2017916 EDT Height 157.5 cm (5' 2) 12/26/2017916 EDT Body Mass Index 39.32 12/26/2017916 EDT Functional Status Functional Status Response Date of [...] concentrating, remembering, or making decisions? No 09/20/2017 Plan of Treatment Not on file Advance Directives For more information, please contact: [phone] * Full Code (Latest Code Status on File) Date Activated Date Inactivated Comments 08/18/2017 3:37 08/20/2017 16:51 Question Answer Comments Reason for decision includes: Full code consistent with overall plan of care Who participated in the discussion? Not Discusse d Care Teams Cuff Runner Relationship Specialty Start Date End Date Odalys Macias MD [address] [place] [address] PCP - General 08/17/17
--- OUTSIDE RECORDS SUMMARY | 2023-12-16 01:01 | XMS_ITS | Encounter Summary ---
Author Organization [facility] Address [address] [place] [address] Care Team Providers Care Secondary Special Education Teacher Name Role Phone Unknown, Provider Primary Care Provider [phone] Encounter Details Date Type Department Care Team (Late st Contact Info) Description 10/10/2002 Results Only [facility] [address] [place] [address] Emmy Dao, [address] [address] Social History Tobacco Use Types Packs/Day Years Used Date Smoking Tobacco: Never Assessed Sex and Gender Information Value Date Recorded Sex Assigned at Not on file Gender Identity Not on file Sexual Orientation Not on file documented as of this encounter Plan of Treatment Not on file documented as of this encounter Procedures Procedure Name Priority Date/Time Associated Diagnosis Comments CYTOPATHOLOGY Routine 10/10/2002 0:00 EDT documented in this encounter Results * CYTOPATHOLOGY (10/10/2002 0:00 EDT) Pathology Report: CYTOPATHOLOGY REPORT Reports generated via electronic interface contain original data; however they are lacking the format of the original report. Caution should be taken when reading/interpreti ng unformatted reports. Name: ? KELLI DELEON ? Accession #: ? [id number] : ? 1980 (Age: 22) ??F ?Collect Date: ? 10/10/2002 Location: ? [facility] ? Receive Date: ? 10/11/2002 Provider: ?EMMY DAO OPERATIONS TECH Copy to: ? Specimen/Source: ?Conventional Pap Test, Cervix/Endocervix Last Menstrual Period: ? 09/16/02 Hormonal/Contracep tive Status: ? Oral contraceptives ? SPECIMEN ADEQUACY ? Satisfactory for Evaluation - transformation zone component present GENERAL CATEGORIZATION ? Negative for Intraepithelial Lesion or Malignancy ? Document reviewed and electronically signed by: ? MAGGY Winkler(ASCP) ? Report Date: ??10/12/2002 14:02 End of Report [facility] 10/10/2002 10/11/2002 Emmy Dao OPERATIONS TECH PATHOLOGY ORDERABLES Performing Organization Address City/State/[facility] Co de Phone Number [facility] [address] [place] [address] documented in this encounter Visit Diagnoses Not on filedocumented in this encounter Care Teams Secondary Special Education Teacher Relationship Specialty Start Date End Date Unknown, Provider, PCP - General 03/31/09 08/16/17 documented as of this encounter
--- OUTSIDE RECORDS SUMMARY | 2023-12-16 01:01 | XMS_ITS | Encounter Summary ---
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 8 week follow up with HVF.?Intermittant distortion in eyes both at near and distance,kind of like a floater. Previous blind spot has resolved. No eye pain, flashing. Headache Occasional headaches not severe in intensity or duration. Takes Tylenol only when needed. Uses relaxation technique to resolve pain. Encounter Details Date Type Department Care Team (Late st Contact Info) Description 10/13/2017 9:45 EDT Office Visit [facility] Ophthalmology - [facility] [address], [place] [id number] Jelani Hayden MD [address] [place] [phone] Social History Tobacco Use Types Packs/Day Years [...] as of this encounter Progress Notes * Jelani Hayden MD - 10/13/2017 0945 EDT This office note has been dictated. I spent a total of 25 minutes in face to face time with this patient today and 20 minutes of that time was spent in counseling and coordination of care as described in the progress note. * Jelani Hayden MD - 10/13/2017 0000 EDT [facility] NEURO-OPHTHALMOLOGY PROGRESS / FOLLOWUP NOTE - 10/13/2017 Ms Deleon returned for followup neuro-ophthalmic evaluation because of the history and concern for aspontaneous occipital hemorrhage with associated visual field defect. I first examined the patient August 18, 2017, at which point she had a small homonomous field defect corresponding to her hemorrhage. The neuro- ophthalmic examination was otherwise unremarkable. The patient has had followup with neurosurgery and returns in followup today. In the interval since the patient was last examined, she has had a followup CT scan, which shows resolution of the hemorrhage, a small area of decreased attenuation, and she is scheduled for evaluation with vascular neurology and has a planned MRI in the coming weeks. With regard to her vision, sheis delighted that the blind spot has all but resolved. 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 She denies any other symptomsand, in general, has been doing well but for mild occasional headaches that are not severe in intensity, duration and not changed when compared to prior. The ocular history, medical history, surgical history, social history, family history, medications and allergies are all unchanged except as noted above and documented in the electronic health record. The neuro-ophthalmic examination found the patient to be communicative and cooperative for testing.Visual acuities with correction were 20/20- in the right eye, 20/20 in the left eye. Kayley 1+ on near card in each eye tested individually. Color vision (Ishihara) showed no dyschromatopsia. Amsler grid testing showed an inferior temporal distortion in the right eye and inferior nasal distortion in the left eye. The pupils were equal in size and showed normal response to light and near. The external examination of the eyes and orbits was normal. Lids were in normal position and showed no lid lag or twitch. Examination of extraocular motility showed no strabismus. Versions and ductions were full. Pursuit and saccade function was normal. There was no nystagmus. Applanation tonometry at 1042 hours was 14 mmHg in the right eye; 14 mmHg in the left eye. Slit lamp examination revealed normal anterior segments. Automated Ruiz visual alvarez were performed reliably and showed resolved inferior temporal defect with just a subtle hint of abnormality that would otherwise be attributed to artifact. Mean deviation score +1.82 dB and a foveal threshold of 39 dB in the right eye. In the left eye, there is a corresponding inferior nasal defect, again easily attributed to artifact but for the homonymous nature and known location of the previous defect. Mean deviation score +0.20 dB and a fove al threshold of 39 dB in the left eye. Undilated stereoscopic (indirect) funduscopy revealed normaloptic nerves, vessels and maculae and a cup-to-disc ratio of 0.4 in each eye. I personally reviewed the images of the patient's CT of the head. This was an unenhanced study of adequate quality obtained on 09/20/2017 and showed resolution of the previously seen area of hemorrhage with an area of hypoattenuation in the same spot with no other abnormality noted. FORMULATION: This is a 37-year-old woman seen for followup neuro-ophthalmic evaluation because of the history of left occipital hemorrhage with corresponding focal defect and findings on CT scan. Thepatient has had workup for etiology, which has failed to show any underlying pathology. The patientis scheduled for followup MRI to look for a problem and has scheduled evaluation in vascular neurology for further consideration and evaluation related to the same. Provided the patient remains improved, there is no clear indication for followup neuro-ophthalmic evaluation, although if abnormality is seen on her MRI, she should return for followup monitoring depending on what is seen. Otherwise, the patient has no limitations and essentially normal alvarez today but for this defect. I have not scheduled followup at this point, but would be happy to see the patient back at any point if she develops new or different symptoms or if there is concern on her MRI. Please do not hesitate to contact me with any further questions or concerns. 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 Ordered: 10/13/2017 documented as of this encounter Visit Diagnoses Diagnosis 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 Visual field defect Visual field defect, unspecified documented in this encounter Eye Exam Visual Acuity (Snellen - Linear) Right eye Left eye Dist cc 20/20 -1 20/20 Near cc J1+ J1+ Correction: Glasses Tonometry (Applanation, 10:42) Right eye Left eye Pressure 14 14 Pupils Dark React APD Right eye 6 Brisk None Left eye 6 Brisk None Visual Alvarez Right eye Left eye Full Full Extraocular Movement Right eye Left eye Full, Ortho Full, Ortho Neuro/Psych Oriented x3: Yes Mood/Affect: Normal Amsler Right eye Left eye inferior temporal distortion inf erior nasal distortion (less than right) Color Right eye Left eye Ishihara 02/12 02/12 Stereo Fly: + Circles: 12/11 Slit Lamp Exam Right eye Left eye Lids/Lashes Normal Normal Conjunctiva/Sclera White and quiet White and chelsea et Cornea Clear Clear Anterior Chamber Deep and quiet Deep and quiet Iris Round and reactive, no TI Round and reactive, no TI Wearing Rx Sphere Cylinder Carbonado Right eye -3.25 +1.75 093 Left eye -3.25 +1.75 086 Type: SVL Care Teams Assistive Technology Specialist Relationship Specialty Start Date End Date Odalys Macias MD [address] [place] [phone] PCP - General 08/17/17 documented as of this encounter
--- OUTSIDE RECORDS SUMMARY | 2023-12-16 01:01 | XMS_ITS | Encounter Summary ---
Author Organization [facility] Address [address] [place] [address] Care Team Providers Care Early Childhood Name Role Phone Unknown, Provider Primary Care Provider [phone] Encounter Details Date Type Department Care Team (Late st Contact Info) Description 10/22/2003 Results Only [facility] - Maple conversion [address] [place] [address] Emmy Dao, [address] [phone] Social History Tobacco Use Types [...] Priority Date/Time Associated Diagnosis Comments CYTOPATHOLOGY Routine 10/22/2003 0:00 EDT documented in this encounter Results * CYTOPATHOLOGY (10/22/2003 0:00 EDT) Pathology Report: CYTOPATHOLOGY REPORT Reports generated via electronic interface contain original data; however they are lacking the format of the original report. Caution should be taken when reading/interpreti ng unformatted reports. Name: ? KELLI DELEON ? Accession #: ? [id number] : ? 1980 (Age: 23) ??F ?Collect Date: ? 10/22/2003 Location: ? [facility] ? Receive Date: ? 10/24/2003 Provider: ?EMMY DAO ALMOND HULLER Copy to: ? Specimen/Source: ?ThinPrep Pap Test, Cervix/Endocervix Last Menstrual Period: ? 10/14/03 Hormonal/Contracep tive Status: ? Oral contraceptives Other: ? HPVA - HPV testing requested if ASC-US on the current ThinPrep Pap test. ? SPECIMEN ADEQUACY ? Satisfactory for Evaluation - transformation zone component present GENERAL CATEGORIZATION ? Negative for Intraepithelial Lesion or Malignancy INTERPRETATION ? Fungal organisms present morphologically consistent with Paulette species. ? Document reviewed and electronically signed by: ? FRANKLIN Arreguin(ASCP) ? Report Date: ??10/30/2003 11:53 End of Report [facility] 10/22/2003 10/24/2003 Emmy Dao ALMOND HULLER PATHOLOGY ORDERABLES [facility] [address] [place] [address] documented in this encounter Visit Diagnoses Not on filedocumented in this encounter Care Teams Early Childhood Relationship Specialty Start Date End Date Unknown, Provider, PCP - General 03/31/09 08/16/17 documented as of this encounter
--- OUTSIDE RECORDS SUMMARY | 2023-12-16 01:01 | XMS_ITS | Encounter Summary ---
Author Organization [facility] Address [address] [place] [address] Care Team Providers Care Butane Compressor Operator Name Role Phone Unknown, Provider Primary Care Provider [phone] Encounter Details Date Type Department Care Team (Late st Contact Info) Description 10/11/2001 Results Only [facility] - Maple conversion [address] [place] [address] Emmy Dao, [address] [phone] Social History Tobacco Use Types [...] Priority Date/Time Associated Diagnosis Comments CYTOPATHOLOGY Routine 10/11/2001 0:00 EDT documented in this encounter Results * CYTOPATHOLOGY (10/11/2001 0:00 EDT) Pathology Report: CYTOPATHOLOGY REPORT Reports generated via electronic interface contain original data; however they are lacking the format of the original report. Caution should be taken when reading/interpreti ng unformatted reports. Name: ? KELLI DELEON ? Accession #: ? [id number] : ? 1980 (Age: 21) ??F ?Collect Date: ? 10/11/2001 Location: ? [facility] ? Receive Date: ? 10/13/2001 Provider: ?EMMY DAO COMMUNITY AFFAIRS DIRECTOR Copy to: ? Specimen/Source: ?ThinPrep Pap Test, Cervix/Endocervix Last Menstrual Period: ? 09/21/01 Hormonal/Contracep tive Status: ? Oral contraceptives ? SPECIMEN ADEQUACY ? Satisfactory for Evaluation - transformation zone component present GENERAL CATEGORIZATION ? Negative for Intraepithelial Lesion or Malignancy ? Document reviewed and electronically signed by: ? Gisele Johnson, SCT(ASCP) ? Report Date: ??10/20/2001 09:03 End of Report [facility] 10/11/2001 10/13/2001 Emmy Dao COMMUNITY AFFAIRS DIRECTOR PATHOLOGY ORDERABLES Performing Organization Address City/State/[place] Co de Phone Number [facility] [address] [place] [address] documented in this encounter Visit Diagnoses Not on filedocumented in this encounter Care Teams Butane Compressor Operator Relationship Specialty Start Date End Date Unknown, Provider, PCP - General 03/31/09 08/16/17 documented as of this encounter
--- OUTSIDE RECORDS SUMMARY | 2023-12-16 01:01 | XMS_ITS | Encounter Summary ---
Author Organization [facility] Address [facility] [place] [address] Care Team Providers Care Voucher Examiner Name Role Phone Unavailable Primary Care Provider Unavailabl e Encounter Details Date Type Department Care Team (Latest Contact Info) Description 08/17/2017 12:05 AM EDT - 08/17/2017 11:59 PM EDT Hospital Encounter [place] [address] Rohith Broderick MD [facility] [place] [address] Discharge Disposition: Home Social History Tobacco Use Types Packs/Day Years Used Date Smoking Tobacco: Never Assessed Sex and Gender Information Value Date Recorded Sex Assigned at Not on file Gender Identity Not on file Sexual Orientation Not on file documented as of this encounter Plan of Treatment Not on file documented as of this encounter Procedures Procedure Name Priority Date/Time Associated Diagnosis Comments FILM LIBRARY STORAGE ONLY CT HEAD Routine 08/17/2017 12:05 AM EDT documented in this encounter Results * Film Library- Storage Only CT Head (08/17/2017 12:05 AM EDT) Narrative [facility] - 08/17/2017 7:04 PM EDT This exam is for storage only and is auto-finalizing. Rohith Broderick MD IMG FILM LIBRARY ORD ERABLES [place], [place] documented in this encounter Visit Diagnoses Not on filedocumented in this encounter
--- OUTSIDE RECORDS SUMMARY | 2023-12-16 01:01 | XMS_ITS | Encounter Summary ---
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 No eye pain, recently had shingles with h/a. Tuesday morning had rainbow colored kaleidoscope in vision for approx. 15 min. No flashes. Finished acyclovir Sat. Morning. Eye Exam Encounter Details Date Type Department Care Team (Late st Contact Info) Description 08/18/2017 13:00 EDT Office Visit [facility] Ophthalmology - [address] [phone] Jelani Hayden MD [address] [place] [phone] Social History Tobacco Use Types Packs/Day [...] a physical, menta l, or emotional condition, do you have difficulty doing errands alone such as visiting a doctor's office or shopping? (15 years old or older) No 08/18/2017 Cognitive Status Response Date of Assessm ent Because of a physical, menta l, or emotional condition, do you have serious difficulty concentrating, remembering, or making decisions? (5 years old or older) No 08/18/2017 documented as of this encounter Progress Notes * Jelani Hayden MD - 08/18/2017 1300 EDT This office note has been dictated. I spent a total of 45 minutes in face to face time with this patient today and 30 minutes of that time was spent in counseling and coordination of care as described in the progress note. documented in this encounter Consult Notes * Jelani Hayden MD - 08/18/2017 0000 EDT NEURO-OPTHALMOLOGY INPATIENT CONSULTATION SERVICE DATE: 08/18/2017 Ms Deleon is seen for neuro-ophthalmic evaluation at the request of the neurosurgery service becauseof a history of an occipital hemorrhage on the left. 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 She was treated with acyclovir with resolution of the rash. She was seen by Dr Ordoñez in ophthalmology to evaluate the same with minimal to no evidence for ocular involvement. On August 14, the patient developed visual symptoms that she describes as shimmering in the right lower portion of her vision. She called a local friend who is an security officer supervisor, and he thought that this was likely a migrainous aura. Symptoms persisted and worsened, such that the shimmering developed into a field defect. She was seen by the security officer supervisor the next day and found to have homonymous right lower quadrantic defects. Her PCP was notified, and a CT and MRI were obtained, which demonstrated the foci of hemorrhage. The patient was thus transferred to this hospital and admitted to theneurosurgery service. In review of the contrast enhanced MRI there is no clear evidence for an underlying lesion. The patient has been clinically stable since arrival and CT angiography shows no clear vascular lesion and plan for further workup and evaluation of the same. The patient's ocular history is significant only for refractive error. The medical history includes psoriasis on her legs, which is treated topically. She is not on any systemic medications. On review of systems, the patient denies headaches. She has had migraine in the past. Her health inthe past several months has otherwise been unremarkable, but for the recent events. She does reportan occasional rapid heartbeat. She has not had any other chest pain or shortness of breath. Comprehensive review of systems is otherwise negative. Medications were reviewed as documented in the electronic health record, include gabapentin and ibuprofen. The patient is allergic to SHRIMP. The family history includes cataracts, glaucoma, as well as macular degeneration in grandparents. There is a maternal great-grandmother who of a brain tumor. There is no other known neurologic or ophthalmologic disease in the family. The neuro-ophthalmic examination revealed the patient to be communicative and cooperative for testing. Visual acuities with correction were 20/20+3 in the right eye, 20/20+3 in the left eye and Kayley 1+ on near card in each eye tested individually. Color vision (Ishihara) showed no dyschromatopsia. Amsler grid testing showed no metamorphopsia. The pupils were equal in size and showed normal response to light near. External examination of the eyes and orbits was normal. Lids were in normal position and showed no lid lag or twitch. Examination of extraocular motility showed no strabismus. Versions and ductions were full. Pursuit and saccade function was normal. There was no nystagmus. Applanation tonometry was deferred. Slit lamp examination revealed normal anterior segments. Automated Ruiz visual alvarez were performed with a moderate degree of technical error. The right eye showed aright inferior quadrantic defect that respects the vertical and horizontal, approximately 5 degreesin height and width and the remainder of the field is normal with mean deviation score of +0.29 dB.The left visual field shows a right inferior quadrantic defect that respects the vertical and horizontal meridian, approximately 5 degrees in diameter. The remainder of the field is normal, mean deviation score +0.25 dB with foveal threshold of 37 dB. Undilated stereoscopic (indirect) funduscopy revealed normal optic nerves, vessels and macula. Cup-to-disc ratio of 0.4 in each eye. I personally reviewed the images of the patient's MRI of the brain. This was a contrast-enhanced study of adequate quality, shows a small foci of hemorrhage left occipital lobe, a small area of contrast enhancement at the border of this lesion, mild associated edema with no other abnormality noted. FORMULATION: This is a 37-year-old woman with a small occipital hemorrhage and associated visual field defect of unclear etiology. The patient had a recent episode of zoster, unclear relationship to the same. The patient's only other medical history is that of psoriasis, which is minimal and currently controlled with topical therapy. At present, the patient has adequate vision such that she is not disqualified from driving. No other abnormalities noted. I agree with the neurosurgery's plan for further evaluation and workup the same. I will plan on seeing the patient back in approximately eight weeks, certainly sooner if in the interval she is experiencing any new or different symptoms. Thank you for allowing me to share in the care of this patient. Please do not hesitate to contact me with any further questions or concerns. 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 in visual field documented in this encounter Eye Exam Visual Acuity (Snellen - Linear) Right eye Left eye Dist cc 20/20 +3 20/20 +3 Pupils Dark React APD Right eye 6 brisk none Left eye 6 brisk none Visual Alvarez Right eye Left eye Full Full Extraocular Movement Right eye Left eye Full, Ortho Full, Ortho Neuro/Psych Oriented x3: Yes Mood/Affect: Normal Amsler Right eye Left eye Missing lines/wavy Missing lines /wavy Lower right side missing wavy both eyes Color Right eye Left eye Ishihara 02/12 02/12 Stereo Fly: + Circles: 60sec Care Teams Washer And Crusher Tender Relationship Specialty Start Date End Date Odalys Macias MD [address] [place] [phone] PCP - General 08/17/17 documented as of this encounter
--- OUTSIDE RECORDS SUMMARY | 2023-12-16 01:01 | XMS_ITS | Encounter Summary ---
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 ([facility]) Gisele Mccrary MD [address] [place] [address] Clement Mason MD [address] [facility], [facility] [address] [place] [address] Referral ID Status Reason Start Date Expiration Date Visits Requested Visits Authorized [id number] Specialty Report Received Specialty Services Required 09/20/2017 1 1 Question Answer Reason for Request: f/u left occipital ICH Reason for Visit * Reason Comments Follow-up CT today * Follow Up (Routine) - Closed Specialty Diagnoses / Procedures Referred By Contac t Referred To Contact Neurosurgery Diagnoses Nontraumatic cortical hemorrhage of cerebral hemisphere, unspecified laterality ([facility]) Marlon Cabezas MD [address] [place] [address] Gisele Mccrary MD [address] [place] [address] Referral ID Status Reason Start Date Expiration Date V isits Requested Visits Authorized [id number] Closed Specialty Services Required 08/20/2017 1 1 Encounter Details Date Type Department Care Team (Latest Contact Info) Description 09/20/2017 9:00 EDT Office Visit [facility] Neurosurgery - [address] [address] Gisele Mccrary MD [address] [place] [address] 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 She had a history of recent shingles outbreak and was treated empirically with acyclovir however all viral and inflammatory markers were negative. She was seen by neuro ophthalmology and neurology during her hospitalization. Paulette was discharged on 08/20/17 and now returns for a four-week follow-up appointment. Since Paulette was discharged, she has been doing well. Paulette reports no headaches and is feeling nearly back to normal. She reports improvement in her right inferior visual field loss and is scheduled for follow-up with Dr. Hayden on October 13. CT today demonstrates resolution of the small left occipital ICH without any new radiographic findings. In summary, Paulette is a 37 y.o. female four weeks s/p a left occipital ICH resulting in a right inferior visual field cut. At present, Paulette is doing very well with improvement in her visual field loss. She has follow-up scheduled with Dr. Hayden and I will see her again following her MRI/MRA in November. She should also have follow-up with the neurology stroke service and I will place a referral today. I spent a total of 25 minutes in face to face time with this patient today and 20 minutes of that time was spent counseling the patient on traumatic brain injury. 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
--- OUTSIDE RECORDS SUMMARY | 2023-12-16 01:01 | XMS_ITS | Encounter Summary ---
Author Organization [facility] Address [address] [place] [address] Care Team Providers Care Marshmallow Machine Worker Name Role Phone Unknown, Provider Primary Care Provider [phone] Encounter Details Date Type Department Care Team (Late st Contact Info) Description 11/23/2000 Results Only [facility] - [facility] [address] [place] [address] Emmy Dao, [address] [address] Social History Tobacco Use Types [...] Priority Date/Time Associated Diagnosis Comments CYTOPATHOLOGY Routine 11/23/2000 0:00 EDT documented in this encounter Results * CYTOPATHOLOGY (11/23/2000 0:00 EDT) Pathology Report: CYTOPATHOLOGY REPORT Reports generated via electronic interface contain original data; however they are lacking the format of the original report. Caution should be taken when reading/interpreti ng unformatted reports. Name: ? KELLI DELEON ? Accession #: ? [id number] : ? 1980 (Age: 20) ??F ?Collect Date: ? 11/23/2000 Location: ? [facility] ? Receive Date: ? 11/24/2000 Provider: ?EMMY DAO PEER EDUCATOR Copy to: ? Specimen/Source: ?ThinPrep Pap Test, Cervix/Endocervix Last Menstrual Period: ? 10/27/00 Hormonal/Contracep tive Status: ? Oral contraceptives ? SPECIMEN ADEQUACY ? Satisfactory for evaluation. GENERAL CATEGORIZATION ? Within Normal Limits ? Document reviewed and electronically signed by: ? Blanca Hernandez, ??SCT(ASCP) ? Report Date: ??11/28/2000 15:05 End of Report [facility] 11/23/2000 11/24/2000 Emmy Dao PEER EDUCATOR PATHOLOGY ORDERABLES Performing Organization Address City/State/[facility] Co de Phone Number [facility] [address] [place] [address] documented in this encounter Visit Diagnoses Not on filedocumented in this encounter Care Teams Marshmallow Machine Worker Relationship Specialty Start Date End Date Unknown, Provider, PCP - General 03/31/09 08/16/17 documented as of this encounter
--- OUTSIDE RECORDS SUMMARY | 2023-12-16 01:01 | XMS_ITS | Clinical Summary ---
Author Organization [facility] Address [place] [address] Care Team Providers Care Public Safety Dispatcher Name Role Phone Unavailable Primary Care Provider Unavailabl e Social History Tobacco Use Types Packs/Day Years Used Date Smoking Tobacco: Never Assessed Sex and Gender Information Value Date Recorded Sex Assigned at Not on file Gender Identity Not on file Sexual Orientation Not on file Plan of Treatment Health Maintenance Due Date Last Done Comments HIV screen 07/08/1997 Hepatitis C Screening 07/08/1997 Hepatitis B vaccine (0-59 yrs) (1) 07/08/1998 Tdap adult 07/08/1998 Tetanus vaccine 07/08/1998 HPV test 07/08/2009 PAP Smear 07/08/2009 Breast Cancer Share Decision Needed 2019 Breast Cancer screening 2019 Covid-19 Vaccine ( - season) 2023 Influenza (Flu) vaccine (1 o f 1 - Influenza standard series) 12/04/2023
--- OUTSIDE RECORDS SUMMARY | 2023-12-16 01:01 | XMS_ITS | Encounter Summary ---
Author Organization [facility] Address [address] [place] [address] Care Team Providers Care Client Business Manager Name Role Phone Unknown, Provider Primary Care Provider [phone] Encounter Details Date Type Department Care Team (Late st Contact Info) Description 06/17/2017 Results Only [facility] [phone] Emmy Dao, [facility] [address] [place] [address] Social History Tobacco Use Types Packs/Day Years Used Date Smoking Tobacco: Never Assessed Sex and Gender Information Value Date Recorded Sex Assigned at Not on file Gender Identity Not on file Sexual Orientation Not on file documented as of this encounter Plan of Treatment Not on file documented as of this encounter Procedures Procedure Name Priority Date/Time Associated Diagnosis Comments PAP TEST- RESULT ONLY Routine 06/17/2017 0:00 EDT documented in this encounter Results * PAP TEST- RESULT ONLY (06/17/2017 0:00 EDT) Pathology Report: CYTOPATHOLOGY REPORT Reports generated via electronic interface contain original data; however they are lacking the format of the original report. Caution should be taken when reading/interpreti ng unformatted reports. Name: ? KELLI DELEON ? Accession #: ? [id number] ? : ? 1980 (Age: 36) ??F ?Collect Date: ? 06/17/2017 ? Location: ? [facility] ? Receive Date: ? 06/20/2017 ? Provider: EMMY DAO RESEARCH LABORATORY TECHNICIAN Copy to: CHON MCCARTHY MD ? Final Report SPECIMEN ADEQUACY ? Satisfactory for Evaluation - transformation zone component present GENERAL CATEGORIZATION ? Negative for Intraepithelial Lesion or Malignancy ?? Specimen/Source: ??Pap Test, Cervix, ThinPrep Imaging System with manual evaluation Document reviewed and electronically signed by: ? Travis Church, MAGGY(ASCP) ? Report ??Date: 06/27/2017 11:45 HPV with Pap Test ? Date Ordered: ? 06/27/2017 ? Status: ?? Signed Out ?Date Complete: ? 06/29/2017 ? By: ??System Interface ? Date Reported: ? 06/29/2017 ? Interpretation RESULT: Negative for HPV. No E6 or E7 mRNA is detected from HPV types 16,18,31,33,35, 39,45,51,52,56,58, 59,66, and 68 by columnist mediated amplification. Comments Document reviewed and electronically signed by: ? System Interface ? Report date: 06/29/2017 By the signature above, the attending physician certifies that he/she has personally conducted a gross and/or microscopic examination of the described specimens and rendered or confirmed the above diagnosis. End of Report [facility] 06/17/2017 06/20/2017 Emmy Dao RESEARCH LABORATORY TECHNICIAN PATHOLOGY ORDERABLES [facility] [address] [place] [address] documented in this encounter Visit Diagnoses Not on filedocumented in this encounter Care Teams Client Business Manager Relationship Specialty Start Date End Date Unknown, Provider, PCP - General 03/31/09 08/16/17 documented as of this encounter
--- OUTSIDE RECORDS SUMMARY | 2023-12-16 01:01 | XMS_ITS | Encounter Summary ---
Author Organization [facility] Address [address] [place] [address] Care Team Providers Care Food Mixer Assembler Name Role Phone Odalys Macias MD Primary Care Provider [phone] Reason for Visit * Reason Onset Date Comments Letter for School/Work 09/21/2017 Encounter Details Date Type Department Care Team (Late st Contact Info) Description 09/21/2017 Telephone [facility] Neurosurgery - [facility] [address] [place] [address] Gisele Mccrary MD [address] [place] [address] Letter for School/Work Social History Tobacco Use Types Packs/Day Years [...] Miscellaneous Notes * Telephone Encounter - Daxa Danielle, RN - 09/21/2017 1039 EDT Returned call to Paulette to confirm that she discussed with Dr. Mccrary she can return to activities as tolerated; including physical activity and work related activity. Will fax/mail letter as requested. Paulette wanted to make note that she has also requested for FMLA paperwork to be faxed to our office and the return to work date is to be 10/03/17 (as discussed with her employer, this will be the dateshe returns). We spent some time discussing the recommended gradual return to activity. Paulette did ask about alcohol use; discussed that recreational alcohol use may have more of an affect than previously. Paulette was encouraged to call with any questions or concerns that may arise as she returns to work and activity. * Telephone Encounter - Lillian Rod - 09/21/2017 0905 EDT Patient would like to return to work on October 03. Her employer needs a note. It needs to include any restrictions. She mentioned that Dr. Mccrary stated as tolerated. It can be faxed to [phone]. She would also like a copy mailed to her. documented in this encounter Plan of Treatment Not on file documented as of this encounter Visit Diagnoses Not on filedocumented in this encounter Care Teams Food Mixer Assembler Relationship Specialty Start Date End Date Odalys Macias MD [address] [place] [address] PCP - General 08/17/17 documented as of this encounter
--- OUTSIDE RECORDS SUMMARY | 2023-12-16 01:01 | XMS_ITS | Encounter Summary ---
Author Organization [facility] Address [address] [place] [address] Care Team Providers Care Maintenance Service Technician Name Role Phone Unknown, Provider Primary Care Provider [phone] Encounter Details Date Type Department Care Team (Late st Contact Info) Description 10/29/2005 Results Only [facility] - [place] [facility] [address] [place] [address] Emmy Dao, [address] [address] Social History Tobacco Use Types [...] Priority Date/Time Associated Diagnosis Comments CYTOPATHOLOGY Routine 10/29/2005 0:00 EDT documented in this encounter Results * CYTOPATHOLOGY (10/29/2005 0:00 EDT) Pathology Report: CYTOPATHOLOGY REPORT Reports generated via electronic interface contain original data; however they are lacking the format of the original report. Caution should be taken when reading/interpreti ng unformatted reports. Name: ? KELLI DELEON ? Accession #: ? [id number] : ? 1980 (Age: 25) ??F ?Collect Date: ? 10/29/2005 Location: ? [facility] ? Receive Date: ? 11/01/2005 Provider: ?EMMY DAO SUPERVISOR ASSEMBLY Copy to: ? Specimen/Source: ?ThinPrep Pap Test, Cervix/Endocervix, processed on [employer] TEK ThinPrep Imaging System, with manual evaluation Last Menstrual Period: ? 10/11/05 Hormonal/Contracep tive Status: ? Oral contraceptives Other: ? HPVA - HPV testing requested if ASC-US on the current ThinPrep Pap test. ? SPECIMEN ADEQUACY ? Satisfactory for Evaluation - transformation zone component present GENERAL CATEGORIZATION ? Negative for Intraepithelial Lesion or Malignancy ? Document reviewed and electronically signed by: ? MAGGY Winkler(ASCP) ? Report Date: ??11/03/2005 13:11 End of Report [facility] 10/29/2005 11/01/2005 Emmy Dao SUPERVISOR ASSEMBLY PATHOLOGY ORDERABLES [facility] [address] [place] [address] documented in this encounter Visit Diagnoses Not on filedocumented in this encounter Care Teams Maintenance Service Technician Relationship Specialty Start Date End Date Unknown, Provider, PCP - General 03/31/09 08/16/17 documented as of this encounter
--- OUTSIDE RECORDS SUMMARY | 2023-12-16 01:01 | XMS_ITS | Encounter Summary ---
Author Organization [facility] Address [address] [place] [address] Care Team Providers Care Certified Fire Investigator Name Role Phone Odalys Macias MD Primary Care Provider [phone] Reason for Referral * Radiology Services (Routine) - Receiving Office to Obtain Authorization Specialty Diagnoses / Procedures Referred By Contac t Referred To Contact Diagnoses Nontraumatic cortical hemorrhage of cerebral hemisphere, unspecified laterality (HCC-CMS) Procedures MR HEAD W/WO CONTRAST Marlon Cabezas MD [address] [place] [id number] Referral ID Status Reason Start Date Expiration Date Visits Requested Visits Authorized [id number] Receiving Office to Obtain Authorization 08/20/2017 1 1 * Radiology Services (Routine) - Receiving Office to Obtain Authorization Specialty Diagnoses / Procedures Referred By Contac t Referred To Contact Diagnoses Nontraumatic cortical hemorrhage of cerebral hemisphere, unspecified laterality (HCC-CMS) Procedures CT HEAD WO CONTRAST Marlon Cabezas MD [address] [place] [id number] Referral ID Status Reason Start Date Expiration Date Visits Requested Visits Authorized [id number] Receiving Office to Obtain Authorization 08/20/2017 1 1 * Follow Up (Routine) - Closed Specialty Diagnoses / Procedures Referred By Contac t Referred To Contact Neurosurgery Diagnoses Nontraumatic cortical hemorrhage of cerebral hemisphere, unspecified laterality (HCC-CMS) Marlon Cabezas MD [address] [place] [address] Gisele Mccrary MD [address] [place] [address] Referral ID Status Reason Start Date Expiration Date V isits Requested Visits Authorized [id number] Closed Specialty Services Required 08/20/2017 1 1 Question Answer Reason for Request: F/U Left Occipital cryptogenic IPH Scheduling Comments (optional ? describe specific scheduling needs if applicable): 4 weeks Expected Discharge Date (Inpatient Only): 08/22/2017 Reason for Visit * Reason Comments Headache Patient transfer fro m [facility] and dx with 2 cm left occipital intraparenchimal hemorrhage. Patient states patient has had visual changes since Tuesday. Patient has recently been treated for shingles on left side of her face. 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) Discharge Disposition: Home or Self Care Social History Tobacco Use Types Packs/Day Years [...] Sign Reading Time Taken Comments Blood Pressure 116/56 08/20/2017 0955 EDT Pulse 77 08/20/2017 0606 EDT Temperature 36.8 ??C (98.2 ??F) 08/20/2017 0955 EDT Respiratory Rate 18 08/20/2017 0955 EDT Oxygen Saturation 99% 08/20/2017 0955 EDT Inhaled Oxygen Concentration - - Weight 90.1 kg (198 lb 10.2 oz) 08/17/2017 225 EDT Height 154.9 cm (5' 1) 08/17/2017 225 EDT Body Mass Index 37.53 08/17/2017 2253 EDT documented in this encounter Functional Status [...] No 08/18/2017 documented as of this encounter Discharge Diagnoses Diagnosis I61.1 Nontraumatic intracerebral hemorrhage in hemisphere, cortical-I61.1[ICD-10-CM] H53.462 Homonymous bilateral field defects, left side-H53.462[ICD-10-CM] H53.461 Homonymous bilateral field defects, right side-H53.461[ICD-10-CM] B02.9 Zoster without complications-B02.9[ICD-10-CM] documented in this encounter Discharge Summaries * Marlon Cabezas MD - 08/20/2017 1122 EDT Neurosurgery Discharge Summary Primary Care Provider: Odalys Macias Attending Physician: Gisele Mccrary MD Admit Date: 08/18/2017 Discharge Date: 08/20/2017 Disposition: Home or self care Problems and Procedures Admitting Diagnosis: Nontraumatic cortical hemorrhage of cerebral hemisphere, unspecified laterality (HCC-CMS) Discharge Diagnosis: Same Additional Problems Managed in the Hospital Active Hospital Problems Diagnosis Date Noted ??? *Nontraumatic cortical hemorrhage of cerebral hemisphere (HCC-CMS) 08/18/2017 Resolved Hospital Problems Diagnosis Date Noted Date Resolved No resolved problems to display. Principal Procedure: Cerebral Angiogram (Dr. Shi) Date: 08/19/17 Secondary Procedures: IR-guided Lumbar puncture (Dr. Shi, 08/19/17) Stroke Discharge Information Stroke size: 1.6cc Location: Left occipital lobe Stroke etiology: Cryptogenic stroke (stroke of undetermined etiology) Recent NIHSS Values No data found. Location of stroke related stenoses or occlusions: N/A, IPH Modified Colt Scale: 1: No significant disability. Able to carry out all usual activities, despite some symptoms. Was there an assessment for rehab ordered? If so is it complete? no, patient returned to prior level of function, rehab not indicated at this time Evidence of A-fib or flutter observed or identified during the hospital admission? No Was patient on statin prior to admission? No Cholesterol reducing medications prescribed upon discharge? No, ICH Intensive statin therapy deemed appropriate? No, Crytogenic ICH Antithrombotic prescribed at discharge? No; Risk of bleeding or discontinued due to bleeding Antiplatelet ordered? No Anticoagulations ordered? No Risk for bleeding or discontinued due to bleeding Was this a SAH ICH? No EVD? No Reason No evidence of hydrocephalus Evidence of EVD Ventriculitis? No Shunt placed? No New Diabetes? No Does patient require anti-smoking Tx? No Carotid intervention post discharge plan? No Follow up with Neurology? No, follow up with Neurosurgery Hospital Course 37 y.o. female with pertinent past medical history significant for psoriasis and shingles who presented on 08/17/17 with a visual defect. The patient reports that she had shingles for 10 days prior toSunday the thirteenth (associated with 10 pound weight loss as all three divisions of the trigeminal nerve were reportedly involved) treated with a course of acyclovir. On Tuesday the august at approximately 10 AM the patient reports loss of vision in the lower right corner of her vision bilaterally. She contacted her friend who is an steam hammer operator who evaluated her the next day and confirmed the patient's suspected right lower quadrantopsia bilaterally. The patient thought her symptomswere owed to ocular migraine but because of the lack of resolution the patient's PCP ordered further imaging studies including a CT with and without contrast of the patient's head as well as an MRI with and without contrast that demonstrated a hemorrhagic focus in the left occipital lobe. She was admitted for further workup and treatment. CTA demonstrated diffuse irregularity and tapering of the cerebral vessels, and angiogram was ordered. CT C/A/P was remarkable for a 3mm left lower lobe nodule not concerning for a malignancy. Angiogram was negative. LP was performed to assess obtain CSF for virology, which was negative for enterovirus, VZV, and HSV 1 and 2. Neuro- ophthalmology was consulted, and the area of right inferior quadrantopsia was confirmed to correspond to the area of her cerebral IPH. Given her negative workup, and clinical stability, it was indicated that she be discharged to return with follow up MRI. She was voiding spontaneously, tolerating a diet, ambulating without assistance, and medically appropriate for discharge on 08/20/2017. Allergies and Immunizations Allergies Allergen Reactions ??? Shrimp There is no immunization history on file for this patient. Transition of Care Plans Condition at Discharge Good Prognosis: good Assessment at Discharge Vital signs: Patient Vitals for the past 12 hrs: BP Pulse Heart Rate Resp Temp SpO2 O2 Device 08/20/17 0955 116/56 - 94 BPM 18 36.8 ??C (98.2 ??F) 99 % - 08/20/17 0606 117/64 77 - 16 37 ??C (98.6 ??F) 100 % None 08/20/17 0111 108/54 79 - 16 36.6 ??C (97.9 ??F) 97 % None Discharge Medications: START taking these medications Sig acetaminophen 325 mg tablet Commonly known as: TYLENOL Take 2 Tabs by mouth every 4 hours as needed for Pain. oxyCODONE 5 mg immediate release tablet Commonly known as: ROXICODONE Take 1 Tab by mouth every 8 hours as needed for Pain (discomfort). Earliest Fill Date: 08/20/17 Daily Max: 15 mg Quantity: 10 Tab CONTINUE taking these medications Sig gabapentin 300 mg capsule Commonly known as: NEURONTIN Take 300 mg by mouth 3 times daily as needed. ibuprofen 200 mg tablet Commonly known as: MOTRIN Take 200 mg by mouth every 6 hours. Test results still pending from this admission Procedure Component Value Units Date/Time Varicella IgG Antibody [[id number]] Collected: 08/19/17 1809 Lab Status: In process Specimen: Blood Updated: 08/19/17 1835 Miscellaneous Test, [place] [[id number]] Collected: 08/19/17 1417 Lab Status: In process Updated: 08/19/17 1712 Anti Nuclear Ab (TANVI), IFA [[id number]] Collected: 08/19/17656 Lab Status: In process Updated: 08/19/17817 ANCA, IFA [[id number]] Collected: 08/19/17656 Lab Status: In process Updated: 08/19/17 08 Relevant Studies During Admission Ct Head Wo Contrast IMPRESSION: Unchanged left occipital lobe hemorrhage and surrounding edema. Ct Angio Head W Contrast Result Date: 08/18/2017 IMPRESSION: Diffuse irregularity, tapering, and focal narrowing of the cerebral arteries and paraclinoid right internal carotid artery. Although a majority of the abnormality may be artifactual, the findings are worrisome for an underlying vasculopathy of any cause (RCVS, vasculitis, autoimmune, etc) and further evaluation by conventional angiogram should be considered. No abnormal enhancement associated with the left occipital lobe hematoma to suggest an underlying vascular malformation. No evidence of cortical vein thrombosis or dural venous sinus thrombosis. An acute hematoma can obscure the relevant abnormality on CT angiography and should the cause of hemorrhage remain unidentified, follow-up imaging is suggested. 1-2 mm outpouching along the undersurface of the left internal carotidartery likely reflects a small infundibulum although the posterior communicating artery is not wellimaged. . Ct Chest W Contrast Result Date: 08/18/2017 Impression: 1. No significant abnormalities (no evidence of malignancy, infection or specific findings of vasculitis). 2. A single 3 mm nodule in the posterior basal segment of the left lower lobe ispresent, likely benign. In this patient with no reported smoking history, no further imaging follow-up is recommended. Ct Abdomen, Pelvis W Contrast Result Date: 08/18/2017 Impression: No significant abnormality within the abdomen or pelvis. Ir Carotid Cerebral Bilateral Result Date: 08/19/2017 Conclusion: Normal cerebral angiogram. Secondary Read Neuro Mr Result Date: 08/19/2017 Impression: 1. Left occipital lobe hematoma without an underlying mass or vascular malformation identified. Repeat contrast-enhanced MRI of the brain is suggested once acute blood products have resolved as these could obscure an underlying lesion. 2. Right sphenoid sinus mucosal thickening and fluid. This should be correlated clinically for signs and symptoms of sinusitis. Imaging Required Yes Modality: CT in 1 month, MRI w/wo contrast in 3 months Last Lab Results at Discharge BUN: Lab Results Component Value Date BUN 8 (L) 08/20/2017 Creatinine: Lab Results Component Value Date CREATININE 0.57 08/20/2017 CBC: Lab Results Component Value Date WBC 9.14 08/20/2017 RBC 4.13 08/20/2017 HGB 12.3 08/20/2017 HCT 35.7 08/20/2017 MCV 86 08/20/2017 MCH 29.8 08/20/2017 MCHC 34.5 08/20/2017 PLT 247 08/20/2017 DIFFTYPE Automated 08/20/2017 SEDRATE 46 (H) 08/19/2017 Electrolytes: Lab Results Component Value Date NA 139 08/20/2017 K 4.2 08/20/2017 CL 108 08/20/2017 CO2 22 08/20/2017 Discharge Follow Up Appointments Scheduled with [facility] in the next 3 months Upcoming Appointments Oct 13, 2017 9:45 EDT Established Patient Visit with Jelani Hayden MD [facility] Ophthalmology - [facility] (--) [address] [place] [id number] Studies We Will Schedule Follow-up labs and tests CT HEAD WO CONTRAST Complete by: As directed Process Instructions: Creatinine drawn within 90 days is required for IV contrast for the followingrisk factors: High blood pressure, Age over 60, Diabetes and/or Renal Disease IV HYDRATION IS REQUIRED FOR PATIENTS WITH GFR (GLOMERULAR FILTRATION RATE) =< 30, RECEIVING IV CONTRAST. ORAL HYDRATION IS REQUIRED FOR PATIENTS WITH A GFR BETWEEN 31-59 RECEIVING IV CONTRAST. The following Diabetic medications (other than insulin) must be stopped the day of exam and 48 hours after administration of IV contrast for patients with a GFR =< 30: Glucophage, Glucovance, Metformin, Avandamet, Metaglip, , Riomet, Fortamet, Actoplus-met, Janumet, and Glumetza Authorizing Provider: Marlon Cabezas MD MR HEAD W/WO CONTRAST Complete by: As directed Process Instructions: Each individual MRI exam takes 30-45 minutes. Outpatients should bring meds for pain and/or claustrophobia so they can remain still for the entire exam. They must also have a safe ride home should they require medication. All metal will need to be removed (hair pins, piercings, jewelry, dentures). Patients are required to change from their street clothes into a hospital gown. Patients receiving contrast with their MRI and have risk factors for renal disease (including: Dialysis, Kidney transplant, Single kidney, Kidney surgery, History of known renal cancer, HTN requiringmedical therapy, Diabetes mellitus). They need to be screened for estimated GFR (eGFR) using serum creatinine within 60 days of MRI exam. For patients with severe renal disease (eGFR <30 ml/min or on dialysis), recommended to perform MRI without gadolinium due to risks of Nephrogenic Systemic Fibrosis (NSF). A consultation with Nephrology is required for approval of the use of gadolinium and to ensure prompt scheduling of dialysisafter MRI (within 2 hours). Authorizing Provider: Marlon Cabezas MD Appointments We Recommend but have not been Scheduled Follow-up appointments and procedures Amb Consult/Follow Up Neurosurgery Reason for Request: F/U Left Occipital cryptogenic IPH Scheduling Time Frame: 4 weeks Expected Discharge Date (Inpatient Only): 08/22/2017 Authorizing Provider: Marlon Cabezas MD Raj Thakrar, MD 08/20/2017 12:27 documented in this encounter Discharge Instructions * Discharge Instructions* Jonah Schaefer RN - 08/19/2017 15:19 EDT Home-Going Instructions after Lumbar Puncture and Myelogram Physician Jarek Shi DO These instructions will help prevent a post-lumbar puncture headache. We will keep you lying down in the RECOVERY AREA for 60 minutes following your test. After that youshould RECLINE in the car going home, especially if you begin to develop a headache. ?? Once arriving home, again recline for 6-8 hours following the procedure. You can get up for a short time to eat and to go to the bathroom. (Please note that the practice of lying down after an LP is of questionable value in preventing a headache and much controversy exists regarding this.) ?? Drink plenty of fluids - 8 to 10-8oz. glasses per day for a few days. This will help replenish your body fluids. ?? The next day you may resume your usual activities. If you participate in rigorous recreational exercise, you may want to take it easy an extra day or two before resuming these in order to give your body a chance to heal. You can return to work as long as you have no headache. If you return to work and develop a headache, find a place to lie down for a while. If You Develop a Post-Lumbar Puncture Headache - ?? If you do develop a headache, you will notice increased discomfort in the sitting position. Thisheadache, which can be severe, would typically start in the first 24 to 48 hours after the LP and last anywhere from several hours to 7- 10 days. It responds best to complete bedrest. Drinking plenty of fluids also helps. Tylenol 1-2 tablets by mouth every 4-6 hours may help take the edge off of thepain, but will not give complete relief. If you are able to tolerate it, small to moderate amounts of caffeinated beverages may help take the edge off of the pain. ?? Please notify OUR [facility] if your headache is unusually severe, regardless of bedrest, and lasts more than two days or you develop a fever. Also notify your physician if you notice inflammation, pus formation, or clear drainage from the site of the needle puncture. ?? IF YOU HAVE ANY QUESTIONS OR CONCERNS REGARDING THE PROCEDURE, PLEASE CALL THE INTERVENTIONAL RADIOLOGY CLINIC AT . SOMEONE IS AVAILABLE TO TAKE YOUR CALL 24 HOURS A DAY. RADIOLOGY PATIENT EDUCATION INSTRUCTIONS FOLLOWING AN ANGIOGRAM OF THE HEAD Procedure Wound Site - right Femoral Dr. Filiberto Shi DO has completed an angiogram of your Head. 1. Please drink extra fluids today (6-8 glasses). This will encourage the excretion of the contrastdye material. 2. Do not drive or make any legal decisions today as you have received medications. 3. If you feel a tingling sensation or lack of feeling in the affected extremity, call your local doctor. 4. If you note any signs of bleeding, such as bulging under the skin the size of a golf ball, put direct pressure to the area, call your doctor, and go to the nearest emergency room or call 911 for assistance. 5. You may resume all of your normal dietary and medication requirements. 6. Leave the sterile dressing on for 24 hours, then shower and clean the area daily. Place a clean Band-Aid over the site each day for 5 days. 7. Do not take a tub bath, go in a hot tub or submerge in water for 5 days. 8. Do not put lotions or powder on the area for 5 days. 9. Report any signs of infection (redness, swelling, discharge and fever) to your doctor. 10. No lifting > 20 lbs. or heavy exertion for 5 days after procedure. The results of your Angiogram will be sent directly to your physician within 3 working days. CLOSURE DEVICE {FA IR CLOSURE DEVICES:00267} IF YOU HAVE ANY QUESTIONS OR CONCERNS REGARDING THE PROCEDURE, PLEASE CALL THE INTERVENTIONAL RADIOLOGY CLINIC AT . SOMEONE IS AVAILABLE TO TAKE YOUR CALL 24 HOURS A DAY. documented in this encounter Medications at Time [...] Tab 08/20/2017 documented as of this encounter Ordered Prescriptions Prescription Sig Dispensed Refills Start Date End Da te oxyCODONE (ROXICODONE) 5 mg immediate release tablet Take 1 Tab by mouth every 8 hours as needed for Pain (discomfort). Earliest Fill Date: 08/20/17 Daily Max: 15 mg 10 Tab 08/20/2017 acetaminophen (TYLENOL) 325 mg tablet Take 2 Tabs by mouth every 4 hours as needed for Pain. 08/20/2017 documented in this encounter Discharge Disposition Disposition Code Departure Means Destination Home or Self Care documented in this encounter Progress Notes * Clement Mason MD - 08/20/2017 0835 EDT [facility] NEUROLOGY CONSULT FOLLOW UP NOTE PATIENT NAME: Paulette Deleon PCP: Odalys Macias DATE OF ADMISSION: 08/18/2017 DATE OF SERVICE: 08/20/2017 CODE STATUS: Full Code CHIEF COMPLAINT: Visual field defect REASON FOR CONSULT: workup of spontaneous intracerebral hemorrhage REQUESTING PHYSICIAN TEAM: Neurosurgery REQUESTING ATTENDING: Dr. Mccrary INTERVAL EVENTS / SUBJECTIVE: LP obtained with benign profile Conventional angiogram performed and no evidence of vasculitis, vascular malformation, venous thrombosis Remains on acyclovir while awaiting CSF viral PCR No new complaints this AM Neurologic examination unchanged REVIEW OF SYSTEMS: A 10 point review of systems was performed, pertinent positives are listed above, otherwise negative Subjective/Objective OBJECTIVE: MEDICATIONS: Reviewed in PRISM Scheduled: acyclovir 10 mg/kg ([place]) Q8H docusate sodium 100 mg BID enoxaparin 40 mg DAILY levETIRAcetam 500 mg BID PRN: acetaminophen 650 mg Q4H PRN Or acetaminophen 650 mg Q4H PRN Or acetaminophen 650 mg Q4H PRN bisacodyl 10 mg Q48H PRN gabapentin 300 mg TID PRN hydrALAzine (APRESOLINE) IVPB (General Care) 10 mg Q1H PRN ondansetron (PF) 2-4 mg Q4H PRN oxyCODONE 5-15 mg Q4H PRN senna 1-2 Tab BID PRN PHYSICAL EXAM: VITAL SIGNS Current: Temp: 37 ??C (98.6 ??F) Pulse: 77 Resp: 16 BP: 117/64 SpO2: 100 % O2 Flow Rate (L/min): 2 l/min Range past 24 hours: Temp: [36.6 ??C (97.9 ??F)-37.2 ??C (99 ??F)] () Pulse: [72-79] () Resp: [12-21] () BP: (104-133)/(54-92) () SpO2: [96 %-100 %] () EXAM: General: Middle aged woman resting comfortably in NAD. HEENT: healing lesions left cheeks and lips. MMM. Pulm: Equal air movement bilaterally. CV: S1/S2 present. Ext: Warm. ?? NEUROLOGICAL EXAM Cognition: Awake and alert. Normal fluent and receptive casual language. CN: Visual nevarez with a binocular scotoma in the right inferior quadrant though not a full quadrantanopia. Facial sensation and features symmetric. Tongue protrusion midline. Motor: No involuntary movements. Full power proximally and distally in upper and lower limbs bilaterally. Reflexes: 2+ symmetrically biceps, brachioradialis, patellar, achilles. Plantar response downgoing bilaterally Sensation: Intact to light touch, 128hz tuning fork and cold temperature at the forearms and shins. Coordination: Normal FNF. Gait: ambulates unassisted without difficulty LABORATORY: Reviewed in PRISM. Pertinent recent labs include: WBC/Hgb/Hct/Plts: 9.14/12.3/35.7/247 (08/21 723) Na/K/Cl/CO2: 139/4.2/108/22 (08/21 723) BUN/Cr/glu/ALT/AST/amyl/lip: 8/0.57/--/--/--/--/-- (08/21 723) PT/INR/PTT: 12.6/1.1/31 (08/18 13) Ref. Range 08/19/2017 14:17 Glucose, CSF Latest Units: mg/dl 50 Total Protein, CSF Latest Ref Range: 12 - 60 mg/dl 28 CELL COUNT,CSF Unknown Rpt RBC, CSF Latest Units: /cmm None seen Nucleated Cells Latest Ref Range: 0 - 5 /cmm None seen Total Vol. Latest Units: ml 20.0 Tube Cntd. Unknown 4 Tube Vol. Latest Units: ml 7.0 CSF Comment Unknown Clear and Colorless RADIOLOGICAL STUDIES: Personally reviewed. Pertinent recent studies include: CT head without contrast performed at outside hospital 08/17/2017 shows left occipital hematoma in the cortical/subcortical region measuring approximately 1.5 x 1.8 x 1.9 cm with minimal surrounding edema. ?? MRI brain with gadolinium enhancement performed at outside hospital 08/17/2017 redemonstrates left occipital hematoma without additional findings such as underlying mass. ?? CT cerebral angiogram performed 08/18/2017 shows diffuse irregularities of major cerebral arteries. ?? CT head without contrast 08/18/2017 shows stable left occipital hematoma with mild surrounding edema. ?? CT chest/abdomen/pelvis dated 08/18/2017 with contrast does not show malignancy. There is a single 3mm nodule in the posterior basal segment of the left lower lobe. 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 CTA raised concern for vascular irregularities possibly consistent with a vasculitis, and in the setting of recent zoster empiric therapy for zoster cerebral vasculitis. Conventional angiogram and CSF profile not consistent with this entity though continuing acyclovir until results negative. Ultimately a follow up MRI will be appropriate once the blood products have cleared. RECOMMENDATIONS: Continue acyclovir until CSF VZV results negative Ok to discontinue keppra from Neurology standpoint Outpatient MRI head without and with gadolinium 6-8 weeks from now to re-evaluated Staffed with Dr. Mason. Zachary Toussaint MD Department of Neurology PGY 3 [phone] (Pager [phone] after hours or on weekends) 08/20/2017 8:35 Attestation statement: I saw and examined the patient with the resident/fellow. I agree with the findings and plan of care documented in the resident's/fellow's note. Reassuring that angio and LP arebenign appearing. Reasonable to wait for PCR to return at which point Acyclovir can likley be stopped and she can return for MRi once blood reabsorbed. Would stop Keppra. * Igor Elliott MD - 08/20/2017 6393 EDT Neurosurgery Progress Note Problems/ Left occipital hemorrhage Recent history of shingles Procedures/ LP (08/18/17) 24/ Angiography performed, no findings LP performed PCR negative thus far Neurology and ID consultation, appreciate recs Stable on the floor Subjective/ Slight persistent headache s/p lp. Back is sore. No nausea/vomiting. Vision remains unchanged. Objective/ Blood pressure 108/54, pulse 79, temperature 36.6 ??C (97.9 ??F), temperature source Tympanic, resp. rate 16, height 154.9 cm (61), weight 90.1 kg (198 lb 10.2 oz), SpO2 97 %. Temp: [36.6 ??C (97.9 ??F)-37.2 ??C (99 ??F)] () BP: (104-133)/(54-92) () Exam: Awake, alert Oriented to person/place/date TM EOMI Pupils 3-2 mm BL Binocular partial right inferior quadrantopsia, unchanged No drift Upper Extremity Strength ?? Deltoids Biceps Triceps Brachioradialis Hogshead Hand Interosseous Right 5 5 5 ?? 5 5 Left 5 5 5 ?? 5 5 ?? Lower Extremity Strength ?? Hip flexors Hamstrings Quadriceps Anterior tibialis Extensor halicus longus Gastrocs Right 5 5 5 5 5 5 Left 5 5 5 5 5 5 ? Studies/ Na/K/Cl/CO2: 140/4.1/107/24 (08/19 656) WBC/Hgb/Hct/Plts: 9.89/12.3/35.0/255 (08/19 656) BUN/Cr/glu/ALT/AST/amyl/lip: 10/0.63/--/--/--/--/-- (08/19 656) Assessment/ Paulette Tenisha Deleon is a 37 y.o. female without major risk factors presenting with a left occipital focusof hemorrhage. Etiology at present unclear. The patient has had an negative formal angio as well asa LP with PCR pending for varicella. Plan/ Q4h neurochecks SBP < 160 Follow up PCR Appreciate neurology and ID assistance Keppra Acyclovir Floor Igor Elliott MD Neurosurgery resident 08/20/2017 3:49 Page 0205 with questions Associated attestation - Talha Wadsworth MD - 08/20/2017 0905 EDT Attestation statement: I saw and examined the patient with the resident on 08/20/2017. I agree with the findings and plan of care documented in the resident's note. Talha Wadsworth MD FACS 08/20/2017 at 9:05 * Jonah Schaefer RN - 08/19/2017 1415 EDT Pt received from M6 to angio [address] at 1355. Pt in agreement with plan for Lumbar Puncture and Cerebral angiogram with conscious sedation. Consent completed by GJL. Patient name and verified using armband and verbally. Patient???s allergies, medications, labs and NPO status reviewed. IV site checked for patency. Pt educated on what to expect during the procedure as well as with IV sedation and verbalizes understanding. Patient walked to bathroom prior to procedure start. Pt positioned lying on the left side down, with safety straps in place, extremities supported, and heels elevated for duration of procedure. Sterile prep of mid back with betadine by GJL in the usual sterile fashion in compliance with manufacturers recommendation. Sedation started. 1410 Willard moment agreed upon by all staff in room prior to start of Lumbar Puncture procedure by ANC, RLB and GJL. 1411 LP procedure start. Fluoro imaging used. Lidocaine used as a skin anesthetic. Successful Lumbar Puncture. Pressure is 23 mmHg. CSF pecimen sent for ordered labs. Band aid applied. Procedure complete 1425. Patient tolerated this well. Patient moved to a supine position. Sedation continued. Sterile prep of patients bilateral groin with 2% Chloro prep disinfecting solution by TWP in the usual sterile fashion. Willard moment agreed upon for a Diagnostic Cerebral angiogram by ANC, RLB, TWP and GJL. Procedure start 1500. Right femoral artery accessed, sheath in place. Contrast imaging started. Diagnostic imaging completed. Right femoral artery closed with Mynx Device. Dry dressing applied. Patient should remain supine for 3 hours. Hemostasis at 1530. Pulses palpable Pt monitored throughout procedure. Patient received 5 mg of Versed and 225 cmg Fentanyl during the 60 minute long procedure. Pt tolerated very well. Report given to M6 Nurse RN Pt transferred in stable condition to inpatient holding area. * Saulo Cleveland RN - 08/19/2017 1412 EDT Initial Case Management/Social Work Assessment and Discharge Plan/Readmission Risk Assessment REASON FOR ADMISSION: Left occipital hemorrhage Recent history of shingles ?? Patient understands reason for admission: Yes PATIENT CONTACT INFO VERIFIED: Yes PATIENT ADDRESS VERIFIED: yes LIVING ARRANGEMENTS AND ACCESSIBILITY ISSUES: Living Arrangements: Spouse / significant other, Children Levels: 1 Stairs to enter: 2 Bathroom located on bedroom level?: Yes What in home social supports are available to the patient? Spouse / significant other, Parent Is 24/7 care available? Yes ADVANCED DIRECTIVES, POA &/or COLST IN PLACE: Healthcare Directive: No, patient does not have advance directive for healthcare treatment DIRECTIVES FOR FINANCES: Directive For Finances: No TRANSPORTATION: Transportation: Family CULTURAL, BAHAI and/or LANGUAGE factors affecting health care/discharge planning: Spiritual/Cultural Requests: (Protostant) Any factors affecting health care/discharge planning?: No Insurance in Place: Yes Medical Insurance: Yes Type of insurance: Commercial insurance Commercial coverage: [email or web address] Referred to patient financial services: No DISCHARGE RISK ASSESSMENT: None of the above risks identified Total # selected above: Score: Zero Tentative plan to address the risk of re-hospitalization for those at HIGH MODERATE RISK: RAPT TOOL: Age: 50-65 Gender: Female Ambulation distance: 2 or more blocks (600ft) Gait device: None Community Services: Home health, MOW, SASH-none of one time a week Will you live with someone who will care for you?: Yes RAPT Tool Score: 11 Patient expects to be discharged to: Home with supportive spouse and family SBIRT: Intervention in place/initiated?: No, not indicated FUNCTIONAL STATUS: Activities patient requires assistance: None Assistive Device: None COMMUNITY RESOURCES/SUPPORTS: Primary Care Provider: Odalys Macias PCP Verified: Yes Specialists: None Type of Home Health Services: None DME Provider: None Pharmacy: No Pharmacies Listed Home Health: None Other: POST HOSPITAL TRANSITION PLAN: Met with pt's Rohith pt off the floor in testing. Paulette is otherwise healthy, Has supportive spouse and family close by, is independent of all ADLs and commercial insurance. No CM needs noted. If any d/c needs arise please page CM. Gave 2 [address] passes. 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 rate 16, height 154.9 cm (61), weight 90.1 kg (198 lb 10.2 oz), SpO2 95 %. Temp: [36.6 ??C (97.9 ??F)-37 ??C (98.6 ??F)] () BP: (105-123)/(61-87) () Exam: Awake, alert Oriented to person/place/date TM EOMI Pupils 3-2 mm BL Binocular partial right inferior quadrantopsia No drift Upper Extremity Strength ?? Deltoids Biceps Triceps Brachioradialis Hogshead Hand Interosseous Right 5 5 5 ?? 5 5 Left 5 5 5 ?? 5 5 ?? Lower Extremity Strength ?? Hip flexors Hamstrings Quadriceps Anterior tibialis Extensor halicus longus Gastrocs Right 5 5 5 5 5 5 Left 5 5 5 5 5 5 ? Studies/ Na/K/Cl/CO2: 140/4.1/107/24 (08/19 656) WBC/Hgb/Hct/Plts: 9.89/12.3/35.0/255 (08/19 656) BUN/Cr/glu/ALT/AST/amyl/lip: 10/0.63/--/--/--/--/-- (08/19 656) Assessment/ Paulette Steven Deleon is a 37 y.o. female without major risk factors presenting with a left occipital focusof hemorrhage. Final read of CTA concerning for possible vasculitis, given recent shingles outbreakVZV vasculopathy is a possible etiology of hemorrhage. LP unsuccessful overnight, now on acyclovir IV. Neuro exam stable. Plan/ Q4h neurochecks SBP < 160 NPO IR angio and LP today HIV testing Keppra Acyclovir Floor Zachary Lantigua MD Neurosurgery resident 08/19/2017 8:07 Page [id number] with questions Associated attestation - Gisele Mccrary MD - 08/19/2017 1101 EDT Neurosurgery Staff ?? I have seen and examined this patient. I reviewed the patient's history and exam with the Neurosurgery Resident. I agree with the findings, assessment and treatment plan as documented in the resident's note. 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 VZV vascultitis ID consulted LP today with IR Angio today with IR CT CAP negative * Marlon Cabezas MD - 08/18/2017 0663 EDT Neurosurgery Progress Note Problems/ Left occipital focus of hemorrhage Procedures/ No procedures during this admission 24/ -Admitted to SICU -CTA negative for mass/vascular lesions -ALISA overnight -Exam stable Subjective/ I'm okay. Denies complaints this AM Objective/ Blood pressure (!) 135/98, pulse 85, temperature 36.7 ??C (98 ??F), temperature source Oral, resp. rate 14, height 154.9 cm (61), weight 90.1 kg (198 lb 10.2 oz), SpO2 100 %. Temp: [36.7 ??C (98 ??F)-37.2 ??C (99 ??F)] () BP: (111-139)/(77-98) () Exam: Awake, alert Oriented to person/place/date Repetition intact FS (some evidence of prior vesicular eruption perioral distrubution) TM EOMI Pupils 3-2 mm BL Bilateral right inferior quadrantopsia No drift Upper Extremity Strength ?? Deltoids Biceps Triceps Brachioradialis Hogshead Hand Interosseous Right 5 5 5 ?? 5 5 Left 5 5 5 ?? 5 5 ?? Lower Extremity Strength ?? Hip flexors Hamstrings Quadriceps Anterior tibialis Extensor halicus longus Gastrocs Right 5 5 5 5 5 5 Left 5 5 5 5 5 5 ? Studies/ Na/K/Cl/CO2: 139/3.8/107/23 (08/18 13) WBC/Hgb/Hct/Plts: 10.93/12.8/36.7/289 (08/18 13) BUN/Cr/glu/ALT/AST/amyl/lip: 8/0.58/96/--/--/--/-- (08/18 13) Assessment/ Paulettenoreen Deleon is a 37 y.o. female without major risk factors presenting with a left occipital focusof hemorrhage, unclear etiology. Potential causes include underlying mass lesion, cavernous malformation, vascular malformation. Plan/ Q4h neurochecks CT head 0500 SBP < 140 Regular diet Secondary reads MRI/CT CT C/A/P Neuro-ophthalmology Transfer to floor Marlon Cabezas MD Neurosurgery resident 08/18/2017 6:45 Page [id number] with questions documented in this encounter H&P Notes * Filiberto Shi DO - 08/19/2017 1214 EDT Sedation for Procedure History & Physical Date: 08/19/2017 Time: 12:14 Location: IR Planned Procedure: Cerebral angiogram Chief Complaint/Indications for Procedure: ICH History:ICH Previous Complication with Sedation and/or Anesthesia? No Allergies: Allergies Allergen Reactions ??? Shrimp Current Medications: Prescriptions Prior to Admission Medication Sig Dispense Refill Last Dose ??? gabapentin (NEURONTIN) 300 mg capsule Take 300 mg by mouth 3 times daily as needed. Taking ??? ibuprofen (MOTRIN) 200 mg tablet Take 200 mg by mouth every 6 hours. Taking Past Medical History: Past Medical History: Diagnosis Date ??? Psoriasis ??? Shingles Social History: Past Surgical History: Procedure Laterality Date ??? TYMPANOSTOMY TUBE PLACEMENT Social History Substance Use Topics ??? Smoking status: Never Smoker ??? Smokeless tobacco: Never Used ??? Alcohol use Yes Comment: social Family History: Family History Problem Relation Age of Onset ??? Cataract Father ??? Glaucoma Paternal Grandmother ??? Macular Degeneration Paternal Grandmother Review of Systems as pertinent: Physical: Vital Signs: BP 119/71 (BP Cuff Location: Right arm, Patient Position: Semi fowlers) Pulse 85 Temp 36.6 ??C (97.9 ??F) (Tympanic) Resp 16 Ht 154.9 cm (61) Wt 90.1 kg (198 lb 10.2 oz) SpO2 99% BMI 37.53 kg/m2 Heart Examination: Cardiac Regularity: Regular Respiratory Examination: Respiratory Pattern: Regular Breath Sounds Right: Clear Breath Sounds Left: Clear Additional physical exam related to the proposed procedure, patient activity, disease state and treatment as pertinent: Assessment: Previous complications with sedation or anesthesia?: No Airway Concerns: None Anesthesia Classification: ASA 2 Plan: Cerebral angiogram Fasting Time: Patient Appropriate Candidate for Planned Sedation?: Yes Filiberto Shi DO 08/19/2017 12:14 * Igor Elliott MD - 08/17/2017 4547 EDT Images from the original note were not included. Neurosurgery H&P Consult requested by Thiago Lopez MD for intraparenchymal hemorrhage unknown etiology HPI: Paulette Deleon is a 37 y.o. right handed female on no Blood thinning medications with a past medical history of of psoriasis and shingles presenting with a visual defect. The patient reports thatshe had shingles for 10 days prior to Tuesday the (associated with 10 pound weight loss as all three divisions of the trigeminal nerve were reportedly involved) treated with a course of acyclovir. On Tuesday the august at approximately 10 AM the patient reports loss of vision inthe lower right corner of her vision bilaterally. She contacted her friend who is an steam hammer operator who evaluated her the next day and confirmed the patient's suspected right lower quadrantopsia bilaterally. The patient thought her symptoms were owed to ocular migraine but because of the lack of resolution the patient's PCP ordered further imaging studies including a CT with and without contrast of the patient's head as well as an MRI with and without contrast that demonstrated a hemorrhagic focusin the left occipital lobe. The patient reports no blood per bowel or rectum, does not smoke, is not on control, has no known clotting disorders and does not have a family history of intracranial bleeds. No history of trauma. The patient is not hypertensive at baseline or hypertensive in the ED. Did patient have a stroke or TIA? Unclear at present, workup to continue PMH: Past Medical History: Diagnosis Date ??? Psoriasis ??? Shingles PSH: Past Surgical History: Procedure Laterality Date ??? TYMPANOSTOMY TUBE PLACEMENT Problem List: There is no problem list on file for this patient. ROS: A 10 point ROS was completed and pertinent positives were mentioned in the HPI and ALL OTHERS ARE NEGATIVE FH: No family history on file. SH: History Alcohol Use ??? Yes Comment: social History Smoking Status ??? Never Smoker Smokeless Tobacco ??? Never Used ALL: Allergies Allergen Reactions ??? Shrimp MEDS: No current facility-administered medications for this encounter. Current Outpatient Prescriptions: gabapentin (NEURONTIN) 300 mg capsule ibuprofen (MOTRIN) 200 mg tablet EXAM: Awake, alert Oriented to person/place/date Repetition intact FS (some evidence of prior vesicular eruption perioral distrubution) TM EOMI Pupils 3-2 mm BL Bilateral right inferior quadrantopsia No drift Upper Extremity Strength Deltoids Biceps Triceps Brachioradialis Hogshead Hand Interosseous Right 5 5 5 5 5 Left 5 5 5 5 5 Lower Extremity Strength Hip flexors Hamstrings Quadriceps Anterior tibialis Extensor halicus longus Gastrocs Right 5 5 5 5 5 5 Left 5 5 5 5 5 5 CV s1s2 Resp non labored breathing Extremities WWP LABS: PT/PTT pending Platelets 239 Lytes WNL GFR > 60 IMAGING: MRI with and without contrast demonstrating a hemorrhagic focus in the left occipital lobe. Non-compressive in nature. Small focus of hyperintensity on T1 DWI without any regions of infarction CT head redemonstrating a focus of hemorrhage, non compressive, no obvious enhancing underlying lesion. Assessment: 37 year old female without major risk factors presenting with a left occipital focus of hemorrhage,unclear etiology. Potential causes include underlying mass lesion, cavernous malformation, vascularmalformation. Plan: CTA/CTV ICU Q1 hour neurochecks CT head 0500 SBP < 140 Follow up Pt/PTT/INR Regular diet Secondary reads MRI/CT CT C/A/P Igor Elliott MD Neurosurgery resident 08/17/2017 23:46 Page 2255 with questions Associated attestation - Gisele Mccrary MD - 08/18/2017 1347 EDT Neurosurgery Staff ?? I have seen and examined this patient. I reviewed the patient's history and exam with the Neurosurgery Resident. I agree with the findings, assessment and treatment plan as documented in the resident's note. 37 yo presenting with acute onset visual changes/right HH. CT/MRI with left occipital ICH of unclear etiology. CTA suspicious for underlying vasculitis. Of note, patient had recent outbreak of varicella last week. Neuro intact other than right visual field loss. Plan Angiogram today Labs for TANVI,ESR, CRP,etc for possible autoimmune w/u CT CAP for metastatic w/u Neurology consultation Ophtho consultation Keppra documented in this encounter Procedure Notes * Filiberto Shi DO - 08/19/2017 1532 EDTProcedure(s): HCHG ANGIO CAROTD- CERVICAL BILAT NEUROINTERVENTIONAL RADIOLOGY Paulette Deleon 37 y.o. 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 Filiberto Shi Neurointerventional Radiology [facility] * Filiberto Shi DO - 08/19/2017 1425 EDTProcedure(s): IR LUMBAR PUNCTURE NEUROINTERVENTIONAL RADIOLOGY Paulette Deleon 37 y.o. 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 The patient expressed understanding and consented to the procedure. Thepatient was placed on the right sidein position. The iliac crest and spine were palpated, and the skin overlying the area likely to be L4,5 in correspondence to the iliac crest was prepped and draped sterilely in a surgical fashion. 15 cc of Lidocaine was used to anesthetize the skin and deeper muscle tissue. The 22 gauge spinal needle was advanced just lateral to midline and after three attempts the patient could no longer tolerate the procedure and the procedure was aborted. Patient was instructed to remain flat for 1 hour post-procedure. Complications: Unsuccessful procedure Drains: none Estimated Blood Loss: minimal Disposition: Pt to remain flat for 1 hour post procedure. NPO at midnight for IR cerebral angiogramand likely fluoro assisted LP. documented in this encounter Consult Notes * Bart Qunionez MD - 08/19/2017 5586 EDT Infectious Disease Consult Note Admit Date: 08/18/2017 Date of Service: 08/19/2017 Requesting Physician: Dr. Gisele Mccrary Reason for Consult: Evaluation of possible infectious etiology of hemorrhagic stroke in a young woman HPI: Paulette Deleon is a 37 year old woman with a PMHx of psoriasis and recent diagnosis of shingles. Sheis admitted to the neurosurgical service after developing bilateral right lower quadrantopsia, subsequently found to have hemorrhagic focus of the left occipital lobe. On 07/31, patient started noticging an unusual tingling, painful sensation on left temporal region of her scalp. This progressed to generalized left sided facial pain, spanning from her temporal/scalpregion down to the corner of her mouth. She recalls that her upper left sided teeth hurt, but therewas an abrupt cessation of pain at the midline. Originally thought it was a sinus infection, and on08/03, went to her PCP who diagnosed her with shingles. At that time, she had two small skin lesions - one her left upper lateral lip and one near her left eyebrow. She was started on oral acyclovir three times daily for 10 days and reports being compliant with this medication. Her symptoms were veryclearly delineated on the left side. 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 She recalls some lesions on the inside of her mouth on the left side, as well. Throughout 08/05-08/08 the rash peaked in intensity and becan to improve. She documented the progression on her phone and the lesions appear to be erythematous and vesicular, although no clear crusting or scabbing. Teeth were very sensitive to temperature - she tried oral lidocaine without success. On 08/07, she noticed that her frontal left incisor was paul (she struck it with a spoon in an attempt to lessen the pain). Saw her dentist 08/15, who obtained XRay s and told her a nerve had ruptured in her tooth - a root canal has been scheduled. Her last dose of oral acyclovir was 630pm on 08/13. She continued to feel very fatigued. On 08/14, she went to lay down and noticed a lot of floaters in her vision. Later that day, it progressed to a lower right visual field defect. Has a friend who is an aquarium tank attendant who thought she might have had an ocular migraine. On 08/[address] Briceño (optomostrist in [facility] [facility], appt scheduled due to Shingles diagnosis), who was concerned about the visual field defect. Neuroimaging was subsequently obtained which demonstrated a hemorrhagic focus in the L occipital lobe, for which she was admitted to the hospital. Had chicken pox as a child at age 2. Has never had a cold sore on the outside of her lip before. Sometimes gets canker sores on the inside of her mouth. Review of Systems: General: No fevers or chills, no sweats or rigors HEENT: No rhinorrhea, congestion, or throat pain Respiratory: No shortness of breath, cough, or wheezing Cardiac: No chest pain or palpitations GI: Diarrhea after starting acyclovir, some heartburn : No painful urination or change in urinary habits Neurological: Left sided headache and vision deficits as above Integument: As above, facial lesions. Has psoriasis on feet, mild plaques on medial feet bilaterally, waxing/waning for years Musculoskeletal: Generalized aching since having children, usually in the legs/hips. No weakness. Endocrine: Normal appetite. Sometimes feels warm when other people don't think so. Past Medical History: has a past medical history of Psoriasis and Shingles. Past Surgical History: has a past surgical history that includes Tympanostomy tube placement. Bulging disc in back. Medications: MAR reviewed. Anti-infectives: Cefazolin 2g x1 08/18 Acyclovir 10mg/kg q8h 08/19 - Allergies: Shrimp Family History: Maternal grandparents with MN (were smokers), paternal grandmother had encapsulated TB. No early heart disease. No auto-immune problems. Social History: Lives in [place], [place] in a house with her and two children, daughter 6and son 9. 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 [place]. Home has a spring well (they don't drink from it because it was found to have coliform bacteria, use it to cook, clean, and brush teeth and bathe). Likes to go camping, last was last summer. Non smoker, social EtOH (sometimes 3-4 on the weekend), has been very stressed in recent weeks due to co-worker suicide and stress at work and had been drinking up to 4-5 drinks per day around the time her shingles started. Smokes marijuana frequently. Known to have ticks in her yard. Has not foundany on her body recently - recalls last definitive bite years ago. Has a cat at home - indoor and outdoor cat. Cat doesn't sleep with patient. Vital Signs: BP 119/71 (BP Cuff Location: Right arm, Patient Position: Semi fowlers) Pulse 85 Temp 36.6 ??C (97.9 ??F) (Tympanic) Resp 16 Ht 154.9 cm (61) Wt 90.1 kg (198 lb 10.2 oz) SpO2 99% BMI 37.53 kg/m2 Exam: Head/Neck: Small ulceration on the inner left cheek at the upper teeth. Oral mucosa moist. Large tonsillar pillars without erythema or exudate. Neck is supple in all directions. Heart: Regular rate and rhythm without murmur, gallop, or rub. Radial and dorsalis pedis pulses 2+/2+ Lungs: Clear to auscultation bilaterally without wheeze, rub, or rhonchi. Normal work of breathing. Abdomen: Soft, nontender, nondistended throughout. Lymph Nodes: No cervical chain lymphadenopathy. Skin: Minimal residual areas of erythema on the left face at the nasolabial fold, no vesicles or crusting. Area of ecchymosis at lumbar puncture site on lower back. Musculoskeletal: 5/5 strength in the upper and lower extremities. No bony tenderness along the spine. Extremities: Warm, well perfused, no edema Neuro: Cranial nerves II-XII intact except persistent lower right quadrant visual field cut (pt cannot see thumb of her left hand when extended in front of her face). No strength or sensory deficits in the extremities. Catheters: PIV bilateral upper extremities Data Review: Laboratory data reviewed. Pertinent positives include: Labs: Sed rate elevated at 46 CRP undetectable <7 HIV negative Unremarkable CBC and CMP Microbiology: MRSA nares swab: negative CSF virus detection: Pending CSF to analyze Other: Radiological Studies: I have independently visualized the CT head wo contrast, CT C/A/P w contrast,outside hospital MRI and CT head w/wo: Small hemorrhagic foci left occipital lobe. CTA head with irregularity of anterior, medial, posterior cerebral arteries, tapering and narrowing. Assessment: Generally healthy 37 year old woman with a history of psoriasis and a recent diagnosis of Zoster involving what appears to be all three branches of the left trigeminal nerve, who subsequently developed bilateral right lower quadrantanopia and was found to have ICH of the left occipital lobe, and diffuse irregularities of several cerebral arteries. Her vitals and initial standard lab findings are unremarkable. 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 She does not have a known immunosuppressed status, but reports significant work stressors, and had been drinking heavily surrounding the time of her shingles outbreak dueto stress following a co- worker's suicide. This may have contributed to viral reactivation. She does not have clear signs or symptoms or an auto-immune process, although these remain a less likely possibility. Other [employer] infections are unlikely given her clinical appearance and stability. At this time, confirming her diagnosis seems the most appropriate plan of action, while empiric treatment continues. Recommendations: - obtain CSF and send for cell count and differential, glucose, protein, culture, gram stain, PCR for HSV, VZV DNA and anti-VZV IgG - obtain serum anti-VZV IgG - continue IV acyclovir (if pt is found to have confirmed VZV vasculopathy, would recommend at least 14 day course) Krishna Smith MD 08/19/2017 9:33 I have interviewed and examined Ms. Deleon. I have discussed her case with Dr. Smith. I agree with the evaluation. Bart Quinonez MD * Clement Mason MD - 08/19/2017 0741 EDT Neurology Consult Note Admit Date: 08/18/2017 Date of Service: 08/19/2017 Hospital Day: LOS: 1 day PCP: Odalys Macias Requesting Physician: [facility] Completing Consult: Neurology Code Status: Full Code Reason for Consult: Spontaneous ICH HPI: Ms Paulette Deleon is a 37 year old woman with no significant past medical history presents for evaluation of a visual field deficit and subsequent finding of left occipital intraparenchymal hemorrhage. On 08/04 she developed a painful rash over the left V1-V3 distribution, presumed to be zoster and treated with acyclovir until 08/14. On 08/14 she reports that she felt unwell and then developed abrupt onset of a scotoma in the right visual field more prominent in her right eye. Ultimately she sough evaluation with Ophthalmology and a right inferior quadrant deficit was identified and she presented to the [facility] for further evaluation and was found to have a left occipital hemorrhage for which she was transferred to [facility] for further evaluation. CTA has subsequently revealed irregularity of the cerebral vasculature thus raising concern for a vasculitic process. Ne urology input has been requested in this regard. PMH PSH Past Medical History: Diagnosis Date ??? Psoriasis ??? Shingles Past Surgical History: Procedure Laterality Date ??? TYMPANOSTOMY TUBE PLACEMENT Social History Family History Social History Substance Use Topics ??? Smoking status: Never Smoker ??? Smokeless tobacco: Never Used ??? Alcohol use Yes Comment: social Family History Problem Relation Age of Onset ??? Cataract Father ??? Glaucoma Paternal Grandmother ??? Macular Degeneration Paternal Grandmother Medications Current Facility-Administered Medications: acetaminophen (TYLENOL) tablet 650 mg oral Q4H PRN Or acetaminophen (TYLENOL) solution unit dose cup 650 mg per ng tube Q4H PRN Or acetaminophen (TYLENOL) suppository 650 mg rectal Q4H PRN acyclovir (ZOVIRAX) 478 mg in sodium chloride (NS) 0.9 % 100 mL IVPB intravenous Q8H [START ON 08/20/2017] bisacodyl (DULCOLAX) suppository 10 mg rectal Q48H PRN docusate sodium (COLACE) capsule 100 mg oral BID gabapentin (NEURONTIN) capsule 300 mg oral TID PRN hydrALAzine (APRESOLINE) 10 mg in sodium chloride (NS) 0.9 % 50 mL IVPB intravenous Q1H PRN levETIRAcetam (KEPPRA) tablet 500 mg oral BID ondansetron (PF) (ZOFRAN) injection 2-4 mg intravenous Q4H PRN oxyCODONE (ROXICODONE) immediate release tablet 5-15 mg oral Q4H PRN [START ON 08/20/2017] senna (SENOKOT) tablet 1-2 Tab oral BID PRN sodium chloride 0.9 % with KCl 20 mEq/L infusion intravenous CONTINUOUS Allergies Allergies Allergen Reactions ??? Shrimp Review of Systems: Complete 14 point ROS performed with pertinent positives and negatives as per HPI and all other systems negative unless indicated below. Objective/Physical Exam: Vital Signs: Temp: 36.6 ??C (97.9 ??F) Pulse: 85 Resp: 16 BP: 119/71 SpO2: 99 % Pain: Patient Vitals for the past 8 hrs: Numeric Pain Level (Scale 1-10) 08/19/17 0756 6 08/19/17 0636 6 Weight: No data found. Body mass index is 37.53 kg/(m^2). Exam General: Middle aged woman resting comfortably in NAD. HEENT: healing lesions left cheeks and lips. MMM. Pulm: Equal air movement bilaterally. CV: S1/S2 present. Ext: Warm. Neurological Exam: Cognition: Awake and alert. Normal fluent and receptive casual language. CN: Visual nevarez with a binocular scotoma in the right inferior quadrant though not a full quadrantanopia. Facial sensation and features symmetric. Tongue protrusion midline. Motor: No involuntary movements. Full power proximally and distally in upper and lower limbs bilaterally. Reflexes: 2+ symmetrically biceps, brachioradialis, patellar, achilles. Plantar response downgoing bilaterally Sensation: Intact to light touch, 128hz tuning fork and cold temperature at the forearms and shins. Coordination: Normal FNF. Gait: ambulates unassisted without difficulty Data Review: All pertinent data personally independently reviewed. CT head without contrast performed at outside hospital 08/17/2017 shows left occipital hematoma in the cortical/subcortical region measuring approximately 1.5 x 1.8 x 1.9 cm with minimal surrounding edema. MRI brain with gadolinium enhancement performed at outside hospital 08/17/2017 redemonstrates left occipital hematoma without additional findings such as underlying mass. CT cerebral angiogram performed 08/18/2017 shows diffuse irregularities of major cerebral arteries. CT head without contrast 08/18/2017 shows stable left occipital hematoma with mild surrounding edema. CT chest/abdomen/pelvis dated 08/18/2017 with contrast does not show malignancy. There is a single 3mm nodule in the posterior basal segment of the left lower lobe. Assessment: 1. 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 Diagnostically, lumbar puncture with PCR for VZV can be sent, and conventional angiography can be performed to better evaluate for intracranial vasculature abnormality. Other considerations include RCVS, although the lack of preceding thunderclap headache is not consistent with this etiology, and vasculitis, and serum inflammatory markers to investigate systemic vasculitis or primary V[employer] angiitis can be sent. MRI did not show evidence of underlying mass, and CT chest/abdomen/pelvis does not show evidence of systemic malignancy. If evaluation for VZV is unrevealing then a broader workup for vasculitis can be pursued. Recommendations: - SBP <140 - agree with ID consultation and empiric treatment with acyclovir - LP with opening pressure, basic CSF profile, viral PCR - conventional angiogram - agree with first pass vasculitis labs (TANVI, ANCA, ESR, CRP). This can be broadened if CSF returnsnegative for evidence of VZV - Neuro-Ophthalmology evaluation already obtained - ok to discontinue harjinder from a Neurology standpoint Patient to be seen with Dr Mason on rounds. Neurology will continue to follow closely Zachary Toussaint MD Department of Neurology PGY 3 pgr [phone] (Pager [phone] after hours or on weekends) 08/19/2017 12:24 Did patient have a stroke or TIA? Yes Type of Stroke Intracranial Hemorrhage ICH Score: 0 GCS Score: Total Christal Coma Scale : 15 AVM? No Hemorrhage site: Subcortical Transfer from outside hospital: No Arrived within 48 hours of hemorrhage? Yes; Will coiling or clipping be started within 36 hours? NoOther Not indicated Stroke code: No Height/Weight/BMI Height: 154.9 cm (61) Weight : 90.1 kg (198 lb 10.2 oz) Body mass index is 37.53 kg/(m^2). Stroke Panel ordered: Yes MRI/MRA ordered: Yes CT/CTA ordered: Yes Is patient on telemetry? Yes Rhythms noted: NSR Procoagulants Reversal Agent Initiated: No Other Not indicated Dysphagia screen prior to food/fluids/meds performed per protocol? Yes passed swallow eval Orders Patient will be assessed for and/or receive rehabilitation services during this hospitalization? PT: No; patient returned to prior level of function, rehab not indicated at this time OT: Yes [facility] [employer]: No; patient returned to prior level of function, rehab not indicated at this time DVT Prophylaxis: Yes; Devices: sequential compression stockings Has patient smoked at least one cigarette in past year? No Stroke specific order set employed? Yes Enrolledin clinical research study? No Medication list reviewed and updated. Problem list reviewed and updated. Personal risk factors for stroke? NO Current treatmentplan and/or risk/benefits of treatment/diagnostic work-up was fully discussed withthe patient at the bedside.Yes Patient/family is in agreement with current plan as outlined above. Attestation statement: I saw and examined the patient with the resident/fellow. I agree with the findings and plan of care documented in the resident's/fellow's note. Discussed case last PM with NSurg Attending. Seen this AM. My concern is mainly with a herpes induced vasculitic process and I recommended an expedited work-up with LP and conventional angio and/or Rx with IV Acyclovir. Acyclovir started and work-up underway--LP may be effected by Rx with Acyclovir, however. ID has also been consulted. documented in this encounter ED Notes * Lala Maria MD - 08/18/2017 0318 EDT I, Alex Frazier, am scribing for Lala Maria MD while he/she is personally performing the service. Alex Frazier 08/18/2017 3:18 Paulette Deleon is a 37 y.o. female who presents to the ED with a new hemorrhagic occipital brain mass on MRI s/p developing bilateral Periferal vision loss. Care and work-up prior to sign out includes labs and evaluation. I assumed care of patient from Dr. Lopez with CTA pending. After I assumed care the patient had CT and admission. Patient had a CTA head w contrast, which was significant for a 2 cm focus of intraparenchymal hemorrhage is seen within the left posterior occipital lobe. Major vascular structures of the anterior and posterior circulation are widely patent with no stenosis, occlusion, aneurysm or evidence of extravasation. No evidence of venous thrombosis. Patient had CT that was obtained, reviewed, and interpreted by myself and discussed with a radiologist. Please see radiology report for further details. Patient admitted to Neurosurgery under the care of Gisele Mccrary MD This documentation is recorded by Alex Frazier acting as Scribe under the direction and presenceof Lala Maria MD. Lala Maria MD: I personally performed the services recorded by the scribe in my presence. I confirm the scribe's documentation has been reviewed by me to accurately and completely record my work, treatment, procedures, and medical decision making. * Thiago Lopez MD - 08/17/2017 2306 EDT DOS: 08/17/2017 Chief Complaint Patient presents with ??? Headache Patient transfer from [facility] and with 2 cm left occipital intraparenchimal hemorrhage. Patient states patient has had visual changes since Tuesday. Patient has recently been treated for shingles on left side of her face. HPI HPI Comments: I, Azra Gordon, am scribing for Thiago Lopez MD while he is personally performing the service. Azra Gordon 08/17/2017 23:06 Paulette Deleon is a pleasant 37 y.o. female who presents to the ED today with a chief complaint of new hemorrhagic occipital brain mass. The patient has no significant past medical history. Patient presents to the ED with a new hemorrhagic occipital brain mass. The patient presented to [facility] after developing a right lower field deficit which began 4 days ago. She notes that she initially began to notice floaters in her peripheral vision, which spontaneously resolved, with a residual blind spot in her right peripheral vision. She notes that she presented to a friend who is an steam hammer operator yesterday, where she was told she had a peripheral blind spot on her bilateral eyes. She states that she then spoke to her PCP, who performed an outpatient MRI and CT head. The patient was foundto have a 2 cm left occipital intraparenchymal hemorrhagic mass vs. Infarct. Of note, the patient states that she was diagnosed with shingles on 08/03. She states that she was placed on acyclovir, gabapentin, and ibuprofen, with her last dose of acyclovir being on 08/13. Patient denies speech difficulty, numbness, and weakness. Social History: The patient does not smoke cigarettes. The patient drinks alcohol. The history is provided by the patient and medical records. Review of Systems Review of Systems Eyes: Positive for visual disturbance. Neurological: Negative for speech difficulty, weakness and numbness. All other systems reviewed and are negative. The patient's past medical, family and social history was reviewed and updated as needed. Allergies Allergen Reactions ??? Shrimp Vital Signs Temp: 36.9 ??C (98.4 ??F) Temp src: Tympanic Pulse: 85 Heart Rate: 94 BPM Resp: 16 SpO2: 98 % BP: 105/65 BP MAP: 98 mm Hg BP Device: BP Machine Patient Position: Supine BP Cuff Location: Left arm O2 Device: None (Room air) Physical Exam Constitutional: She is oriented to person, place, and time. She appears well- developed and well-nourished. HENT: Head: Normocephalic and atraumatic. Eyes: EOM are normal. Pupils are equal, round, and reactive to light. Bilateral peripheral visual field defect. Neck: Normal range of motion. Neck supple. No spinous process tenderness present. Cardiovascular: Normal rate and regular rhythm. Mildly tachycardic. Pulmonary/Chest: Effort normal and breath sounds normal. No respiratory distress. She has no wheezes. She has no rales. Abdominal: Soft. Bowel sounds are normal. She exhibits no distension. There is no tenderness. Musculoskeletal: Normal range of motion. She exhibits no edema or tenderness. Neurological: She is alert and oriented to person, place, and time. Strength and sensation in tact. Skin: Skin is warm and dry. Psychiatric: She has a normal mood and affect. Nursing note and vitals reviewed. RESULTS EKG orders: None Radiology orders: OUTSIDE IMAGES - CT NEURO OUTSIDE IMAGES - MR NEURO CT ANGIO HEAD W CONTRAST POCT US PROCEDURAL GUIDANCE CT ABDOMEN, PELVIS W CONTRAST CT CHEST W CONTRAST CT HEAD WO CONTRAST CONSULT INTERVENTIONAL RADIOLOGY ED Lab Results Labs Reviewed HEMAGRAM AND DIFFERENTIAL - Abnormal Result Value Status WBC 10.93 Final RBC 4.31 Final Hemoglobin 12.8 Final HCT 36.7 Final MCV 85 Final MCH 29.7 Final MCHC 34.9 Final RDW-CV 12.5 Final RDW-SD 38.4 Final PLT 289 Final MPV 10.9 Final Neutrophils 56.3 Final Lymphocytes 33.9 Final Monocytes 8.3 Final Eosinophils 0.6 Final Basophils 0.5 Final Immature Grans 0.4 Final ABS Neutrophils 6.16 Final ABS Lymphs 3.70 (*) Final ABS Monocytes 0.91 (*) Final ABS Eosinophils 0.07 Final ABS Basophils 0.05 Final ABS Immature Grans 0.04 Final Type of Diff: Automated Final BASIC METABOLIC PANEL (BMP) - Abnormal Sodium 139 Final Potassium 3.8 Final Chloride 107 Final CO2 23 Final BUN 8 (*) Final Creatinine 0.58 Final GFR, Calculated 117 Final Calcium 9.5 Final Calculated Calcium 9.6 Final Glucose, Serum 96 Final Fasting? Unknown Final BUN - Abnormal BUN 7 (*) Final HEMAGRAM AND DIFFERENTIAL - Abnormal WBC 10.58 Final RBC 4.35 Final Hemoglobin 12.6 Final HCT 36.5 Final MCV 84 Final MCH 29.0 Final MCHC 34.5 Final RDW-CV 12.5 Final RDW-SD 37.9 Final PLT 287 Final MPV 11.4 Final Neutrophils 68.5 Final Lymphocytes 22.9 Final Monocytes 7.6 Final Eosinophils 0.2 Final Basophils 0.4 Final Immature Grans 0.4 Final ABS Neutrophils 7.26 Final ABS Lymphs 2.42 Final ABS Monocytes 0.80 Final ABS Eosinophils 0.02 (*) Final ABS Basophils 0.04 Final ABS Immature Grans 0.04 Final Type of Diff: Automated Final MRSA PCR Result No Staphylococcus aureus detected by PCR. Final CSF VIRUS DETECTION PROTIME Pro Time 12.6 Final I.N.R. 1.1 Final PTT PTT 31 Final ELECTROLYTES Sodium 139 Final Potassium 4.3 Final Chloride 106 Final CO2 24 Final CREATININE Creatinine 0.64 Final GFR, Calculated 114 Final CALCIUM Calcium 9.5 Final Calculated Calcium 9.7 Final MAGNESIUM Magnesium 1.7 Final PHOSPHORUS Phosphorus 3.6 Final GLUCOSE, GLUCOMETER Glucose, Fingerstick 91 Final [employer] Specialist ID [id number] Final CELL COUNT,CSF TOTAL PROTEIN, CSF GLUCOSE CSF TYPE AND SCREEN ABO A Final Rh Factor Negative Final Antibody Screen Negative Final Specimen Expires: 08/21/2017 @ 23:59 Final Relevant Data Procedures ED COURSE A medical screening exam was performed. The patient is a 37 y.o. female with no significant past medical history who presents to the ED as a transfer from [facility] for further evaluation of a 2 cm left occipital intraparenchymal hemorrhagic mass vs. Infarct. Physical exam was significant for bilateral peripheral visual field defect. Differential diagnosis includes but is not limited to CVA and mass. 23:32 I consulted with Neurosurgery. 00:16 I spoke to Neurosurgery who requested a CT angio head with contrast and CT venogram be performed. The patient was signed out to the oncoming ED MD, Dr. Maria, pending CT angio head with contrast and CT venogram. ASSESSMENT AND PLAN Final diagnoses: Nontraumatic cortical hemorrhage of cerebral hemisphere, unspecified laterality (HCC-CMS) DISPOSITION: Admitted The patient's pain was managed to an adequate level weighing risk vs. benefit of further medications. Upon departure from the Emergency Department, the patient's pain was 0 on a zero to ten scale. Any further pain treatment will be at the discretion of the provider following up with the patient based on their clinical assessment. Condition at departure from the Emergency Department: Serious PCP: Odalys Macias [facility] Number of Diagnoses or Management Options Nontraumatic cortical hemorrhage of cerebral hemisphere, unspecified laterality (HCC-CMS): Diagnosis management comments: 5 Amount and/or Complexity of Data Reviewed Clinical lab tests: ordered and reviewed Tests in the radiology section of CPT??: ordered and reviewed Discussion of test results with the performing providers: yes Decide to obtain previous medical records or to obtain history from someone other than the patient:yes Review and summarize past medical records: yes Discuss the patient with other providers: yes Independent visualization of images, tracings, or specimens: yes Patient Progress Patient progress: stable This documentation is recorded by Azra Gordon acting as Scribe under the direction and presence of Thiago Lopez MD. Thiago Lopez MD: I personally performed the services recorded by the scribe in my presence. Iconfirm the scribe's documentation has been reviewed by me to accurately and completely record my work, treatment, procedures, and medical decision making. 08/18/2017 23:50 No flowsheet data found. * Yassine Singh - 08/17/[id number] EDT TCALL: Paulette Deleon -[birth year]80 CC: Rt lower field defect B. 2cm left occipital masses. Infarct, hemorrhage. Acute onset Tuesday am. MRI and CT today. (GMD) documented in this encounter Miscellaneous Notes * Plan of Care - Yasmine Child - 08/20/2017 1442 EDT Problem: Daily Care Plan Goals Goal: Care Plan Documentation Outcome: Completed Date Met: 08/20/17 08/20/17 1400 Care Plan Focus Area of Focus Discharge Plan Goal This Shift Pt will be discharged Nursing Discharge Note D: Patient noted with discharge orders to: Home. A: Prescriptions provided to patient. Reviewed discharge instructions and prescriptions with Patient and Family IV d/c'd. Belongings collected and sent home with patient. R: Patient and Family verbalized understanding of discharge instructions and denied further questions. YASMINE CHILD RN 08/20/2017 14:41 Problem: High Fall Risk: Goal: Patient will Remain Free of Falls due to Med. Side Effects Outcome: Completed Date Met: 08/20/17 Problem: High Fall Risk: Add only for + Hendrich score - Add only risk factors indicated by assessment Goal: Patient Will Remain Free from Fall-Related Injury Outcome: Completed Date Met: 08/20/17 * Plan of Care - Yasmine Child - 08/19/2017 1559 EDT Problem: Daily Care Plan Goals Goal: Care Plan Documentation Outcome: Ongoing 08/19/17 0756 Care Plan Focus Area of Focus Neuro Status Goal This Shift Neuro status will remain stable this shift Data: 37yo female here with L occipital hemorrhage, recent history of shingles. Pt c/o 'blind spots' in visual field. VS stable, A&Ox3, tolerating medications well. IR LP and cerebral angiogram done today. Action: Monitor VS q4, head to toe assessment, neuro checks q4, administer medications. Response: Pt doing well. Will continue to monitor. YASMINE CHILD RN 08/19/2017 15:55 Problem: High Fall Risk: Goal: Patient will Remain Free of Falls due to Med. Side Effects Outcome: Ongoing Problem: High Fall Risk: Add only for + Hendrich score - Add only risk factors indicated by assessment Goal: Patient Will Remain Free from Fall-Related Injury Outcome: Ongoing * Plan of Care - Lucila Russell RN - 08/19/2017 0342 EDT Problem: Daily Care Plan Goals Goal: Care Plan Documentation Outcome: Ongoing 08/18/17 1113 Care Plan Focus Area of Focus Neuro Status Goal This Shift Neuro status will remain stable. Data: Patient alert and oriented x 3. Cont to have visual deficits, blind spots. Action: LP attempted at bedside; unsuccessful. Given IV ativan and Atbx. C/o pain, given prn oxy with good effect. Plan for IR tomorrow for LP and CT angiogram. NPO at midnight. Response: Pt very anxious concerning diagnosis, emotional support provided. Pt ind in room. VSS. Will cont to monitor and treat accordingly. LUCILA RUSSELL, YANDEL 08/19/2017 3:35 * Plan of Care - Leeanna Coombs, YANDEL - 08/18/2017 2950 EDT Problem: Daily Care Plan Goals Goal: Care Plan Documentation Outcome: Ongoing 08/18/17 1113 Care Plan Focus Area of Focus Neuro Status Goal This Shift Neuro status will remain stable. Data: Pt on HD#1 with L IPH. A&Ox3. Visual deficit causing blind spot, otherwise neuro intact. Action: Monitored NVS Q4. Optho appt and CT C/A/P completed. Addressed questions/concerns. Educatedpt and family on plan of care. Response: Neuro status remains unchanged. VSS. Verbalized understanding of education regarding planof care. Leeanna Coombs RN 08/18/2017 17:44 * Plan of Care - Carol Ames RN - 08/18/2017 5732 EDT Data: Patient admitted from ED with left occipital focus of hemorrhage, unclear etiology. Neuro exam: A&Ox3, Enoch, PERRL. Continues to report blind spots bilaterally, pt reports no changed since symptoms first began (08/14). Appropriately anxious. Action: Plan to monitor and assess, NVS Q1H, monitor hemodynamics -Goal SBP <140. IVF initiated,regular diet- fluids provided. Response: Plan for Head CT this am, pending. Call-leger within reach, will continue to monitor and assess, ongoing. Carol Ames, YANDEL 08/18/2017 7:36 documented in this encounter Plan of Treatment Pending Results Name Type Priority Associated Diagnoses Date /Time OUTSIDE IMAGES - CT NEURO Imaging 08/17/2017 21:27 EDT Scheduled Referrals Name Type Priority Associated Diagnoses Orde r Schedule AMB CONS/FOLLOW UP NEUROSURGERY Outpatient Referral Routine Nontraumatic cortical hemorrhage of cerebral hemisphere, unspecified laterality (HCC-CMS) Ordered: 08/20/2017 documented as of this encounter Procedures Procedure Name Priority Date/Time Associated Diagnosis Comments MR HEAD W/WO CONTRAST Routine 11/15/2017 10:40 EDT Nontraumatic cortical hemorrhage of cerebral hemisphere, unspecified laterality (HCC-CMS) CT HEAD WO CONTRAST Routine 09/20/2017 7 :36 EDT Nontraumatic cortical hemorrhage of cerebral hemisphere, unspecified laterality (HCC-CMS) COMPLETE BLOOD COUNT AND DIFFERENTIAL Routine 08/20/2017 7:24 EDT BUN Routine 08/20/2017 7:24 EDT PHOSPHORUS Routine 08/20/2017 7:24 EDT MAGNESIUM Routine 08/20/2017 7:24 EDT CREATININE Routine 08/20/2017 7:24 EDT CALCIUM Routine 08/20/2017 7:24 EDT ELECTROLYTES Routine 08/20/2017 7:24 EDT VARICELLA IGG ANTIBODY Routine 8 18:09 EDT SECONDARY READ NEURO MR Routine 08/19/2017 15:55 EDT IR LUMBAR PUNCTURE Routine 08/19/2017 15 :41 EDT IR CAROTID CEREBRAL BILATERAL Routine 08/19/2017 15:41 EDT INPATIENT ADD-ON Routine 08/19/2017 14:5 5 EDT CSF VIRUS DETECTION Routine 08/19/2017 1 4:17 EDT MISCELLANEOUS TEST, DICKERSON Routine 08/19/2017 14:17 EDT CELL COUNT,CSF Routine 08/19/2017 14:17 EDT TOTAL PROTEIN, CSF Routine 08/19/2017 14 :17 EDT GLUCOSE CSF Routine 08/19/2017 14:17 EDT RAPID HIV 1/2 ANTIGEN AND ANTIBODY, 4TH GENERATION Routine 08/19/2017 9:18 EDT INPATIENT ADD-ON Routine 08/19/2017 7:45 EDT ANCA, IFA Routine 08/19/2017 6:57 EDT SED RATE Routine 08/19/2017 6:57 EDT COMPLETE BLOOD COUNT AND DIFFERENTIAL Routine 08/19/2017 6:57 EDT C REACTIVE PROTEIN Routine 08/19/2017 6: 57 EDT ANTI NUCLEAR AB (TANVI), IFA Routine 08/19/2017 6:57 EDT BUN Routine 08/19/2017 6:57 EDT PHOSPHORUS Routine 08/19/2017 6:57 EDT MAGNESIUM Routine 08/19/2017 6:57 EDT CREATININE Routine 08/19/2017 6:57 EDT CALCIUM Routine 08/19/2017 6:57 EDT ELECTROLYTES Routine 08/19/2017 6:[address] HEAD WO CONTRAST STAT 08/18/2017 1 6:[address] ABDOMEN, PELVIS W CONTRAST STAT 08/18/2017 16:[address] CHEST W CONTRAST STAT 08/18/2017 1 6:46 EDT COMPLETE BLOOD COUNT AND DIFFERENTIAL Routine 08/18/2017 6:41 EDT TYPE AND SCREEN Routine 08/18/2017 6:41 EDT BUN Routine 08/18/2017 6:41 EDT PHOSPHORUS Routine 08/18/2017 6:41 EDT MAGNESIUM Routine 08/18/2017 6:41 EDT CREATININE Routine 08/18/2017 6:41 EDT CALCIUM Routine 08/18/2017 6:41 EDT ELECTROLYTES Routine 08/18/2017 6:41 EDT GLUCOSE, GLUCOMETER Routine 08/18/2017 6 :18 EDT MRSA PCR Routine 08/18/2017 6:[address] ANGIO HEAD W CONTRAST STAT 08/18/2017 1:47 EDT POCT US PROCEDURAL GUIDANCE STAT 08/18/2017 1:30 EDT PTT Routine 08/18/2017 0:14 EDT PROTIME STAT 08/18/2017 0:14 EDT COMPLETE BLOOD COUNT AND DIFFERENTIAL STAT 08/18/2017 0:14 EDT BASIC METABOLIC PANEL (BMP) STAT 08/18/2017 0:14 EDT documented in this encounter Results * MR HEAD W/WO CONTRAST (11/15/2017 10:40 EDT) Anatomical Region Laterality Modality Other 11/15/2017 10:4 0 EDT 11/15/2017 17:33 EDT Narrative 11/15/2017 17:33 EDT MR HEAD W/WO CONTRAST ??11/15/2017 10:40 AM CLINICAL HISTORY: Intracranial hemorrhage. Evaluate for underlying lesion. COMPARISON: CT head September 20, 2017 and August 18, 2017. TECHNIQUE: MRI of the brain was performed without and with intravenous contrast. Multiplanar, multisequence images were obtained. FINDINGS: Linear hemosiderin in the left occipital lobe represents the site of prior hemorrhage. There is no abnormal enhancement in this location to suggest an underlying mass or vascular malformation. The remainder of the brain parenchyma demonstrates normal signal intensity. No new hemorrhage. No midline shift. No evidence of recent infarction. No hydrocephalus. Flow voids and intravascular enhancement are normal where appropriate. ? The paranasal sinuses and mastoid air cells are predominantly clear. Bone marrow signal is normal. IMPRESSION: Sequela of prior left occipital lobe hemorrhage is seen. No evidence of underlying enhancing lesion or vascular malformation. Procedure Note Girma Yung - 11/15/2017 MR HEAD W/WO CONTRAST 11/15/2017 10:40 AM CLINICAL HISTORY: Intracranial hemorrhage. Evaluate for underlying lesion. COMPARISON: CT head September 20, 2017 and August 18, 2017. TECHNIQUE: MRI of the brain was performed without and with intravenous contrast. Multiplanar, multisequence images were obtained. FINDINGS: Linear hemosiderin in the left occipital lobe represents the site of prior hemorrhage. There is no abnormal enhancement in this location to suggest an underlying mass or vascular malformation. The remainder of the brain parenchyma demonstrates normal signal intensity. No new hemorrhage. No midline shift. No evidence of recent infarction. No hydrocephalus. Flow voids and intravascular enhancement are normal where appropriate. The paranasal sinuses and mastoid air cells are predominantly clear. Bone marrow signal is normal. IMPRESSION: Sequela of prior left occipital lobe hemorrhage is seen. No evidence of underlying enhancing lesion or vascular malformation. Marlon Cabezas MD IMG MRI ORDERABLES * CT HEAD WO CONTRAST (09/20/2017 7:36 EDT) Anatomical Region Laterality Modality Other 09/20/2017 7:36 EDT 09/20/2017 15:22 EDT Narrative 09/20/2017 15:[address] HEAD WO CONTRAST ??09/20/2017 7:36 AM HISTORY: I61.1-Nontraumatic intracerebral hemorrhage in hemisphere, cortical (HCC-CMS)-ICD-10; assess left occipital IPH COMPARISON: CT head without contrast 08/18/17, CT head with and without contrast 08/17/17 FINDINGS: The previously demonstrated left occipital lobe hematoma has resolved. There is a small amount of low-density demonstrated at the site of the previous hemorrhage which may reflect minimal residual edema or some developing tissue loss. There is no new area of hemorrhage. The brain parenchyma does not demonstrate other significant abnormalities. The ventricles, basal cisterns, and sulci are normal in size and configuration. There bones and extracranial soft tissues are unremarkable. The paranasal sinuses, mastoid air cells, and middle ear cavities are unremarkable. The orbits are unremarkable. IMPRESSION: 1. ??Resolved left occipital lobe hematoma with decreased area of surrounding edema compared to prior study. 2. ??No other significant parenchymal abnormalities. Procedure Note Karena Martinez MD - 09/20/2017 CT HEAD WO CONTRAST 09/20/2017 7:36 AM HISTORY: I61.1-Nontraumatic intracerebral hemorrhage in hemisphere, cortical (HCC-CMS)-ICD-10; assess left occipital IPH COMPARISON: CT head without contrast 08/18/17, CT head with and without contrast 08/17/17 FINDINGS: The previously demonstrated left occipital lobe hematoma has resolved. There is a small amount of low-density demonstrated at the site of the previous hemorrhage which may reflect minimal residual edema or some developing tissue loss. There is no new area of hemorrhage. The brain parenchyma does not demonstrate other significant abnormalities. The ventricles, basal cisterns, and sulci are normal in size and configuration. There bones and extracranial soft tissues are unremarkable. The paranasal sinuses, mastoid air cells, and middle ear cavities are unremarkable. The orbits are unremarkable. IMPRESSION: 1. Resolved left occipital lobe hematoma with decreased area of surrounding edema compared to prior study. 2. No other significant parenchymal abnormalities. Marlon Cabezas MD IMG CT ORDERABLES * PHOSPHORUS (08/20/2017 7:24 EDT) Phosphorus 3.2 2.5 - 4.5 mg/dl 08/20/2017 8:17 EDT [facility] Blood specimen (specimen) BLOOD SPECIMEN / Unknown 08/20/2017 7:24 EDT 08/20/2017 7:50 EDT Marlon Cabezas MD CHEMISTRY & BLOOD GA S ORDERABLES Performing Organization Address City/[facility] Co de Phone Number [facility] [address] [place] [address] * MAGNESIUM (08/20/2017 7:24 EDT) Magnesium 1.9 1.7 - 2.8 mg/dl 08/20/2017 8:17 EDT [facility] Blood specimen (specimen) BLOOD SPECIMEN / Unknown 08/20/2017 7:24 EDT 08/20/2017 7:50 EDT Marlon Cabezas MD CHEMISTRY & BLOOD GA S ORDERABLES Performing Organization Address City/[facility] Co de Phone Number [facility] [address] [place] [address] * CALCIUM (08/20/2017 7:24 EDT) Calcium 9.0 8.5 - 10.5 mg/dl 08/20/2017 8:17 EDT [facility] Calculated Calcium 9.3 8.5 - 10.5 mg/dl 08/20/2017 8:17 EDT [facility] Blood specimen (specimen) BLOOD SPECIMEN / Unknown 08/20/2017 7:24 EDT 08/20/2017 7:50 EDT Marlon Cabezas MD CHEMISTRY & BLOOD GA S ORDERABLES [facility] [address] [place] [address] * CREATININE (08/20/2017 7:24 EDT) Creatinine 0.57 0.52 - 1.04 mg/dl 08/20/2017 8:17 EDT [facility] GFR, Calculated 118 >60 ml/min/1.7 3m2 08/20/2017 8:17 EDT [facility] Comment: eGFR calculated using CKD-EPI equation for non Americans. Multiply eGFR by 1.16 for Americans. Blood specimen (specimen) BLOOD SPECIMEN / Unknown 08/20/2017 7:24 EDT 08/20/2017 7:50 EDT Marlon Cabezas MD CHEMISTRY & BLOOD GA S ORDERABLES Performing Organization Address [facility] de Phone Number [facility] [address] [place] [address] * (ABNORMAL) BUN (08/20/2017 7:24 EDT) BUN 8(L) 10 - 26 mg/dl 08/20/2017 8:17 EDT [facility] Blood specimen (specimen) BLOOD SPECIMEN / Unknown 08/20/2017 7:24 EDT 08/20/2017 7:50 EDT Marlon Cabezas MD CHEMISTRY & BLOOD GA S ORDERABLES Performing Organization Address City/[facility] Co de Phone Number [facility] [address] [place] [address] * ELECTROLYTES (08/20/2017 7:24 EDT) Sodium 139 136 - 145 mEq/L 08/20/2017 8:17 EDT [facility] Potassium 4.2 3.5 - 5.0 mEq/L 08/20/2017 8:17 EDT [facility] Chloride 108 96 - 110 mEq/L 08/20/2017 8:17 EDT [facility] CO2 22 22 - 32 mEq/L 08/20/2017 8:17 [facility] Blood specimen (specimen) BLOOD SPECIMEN / Unknown 08/20/2017 7:24 EDT 08/20/2017 7:50 EDT Marlon Cabezas MD CHEMISTRY & BLOOD GA S ORDERABLES [facility] [address] [place] [address] * (ABNORMAL) HEMAGRAM AND DIFFERENTIAL (08/20/2017 7:24 EDT) WBC 9.14 4.0 - 12.4 K/cmm 08/20/2017 7:58 [facility] RBC 4.13 3.86 - 5.04 M/cmm 08/20/2017 7:58 [facility] Hemoglobin 12.3 11.6 - 15.2 gm/dl 08/20/2017 7:58 [facility] HCT 35.7 34.9 - 44.4 % 08/20/2017 7:58 [facility] MCV 86 81 - 98 fl 08/20/2017 7:58 [facility] MCH 29.8 26.7 - 33.3 pg 08/20/2017 7:58 [facility] MCHC 34.5 32.1 - 35.9 gm/dl 08/20/2017 7:58 [facility] RDW-CV 12.9 <14.7 % 08/20/2017 7:58 [facility] RDW-SD 40.1 <50.4 fl 08/20/2017 7:58 [facility] PLT 247 141 - 377 K/cmm 08/20/2017 7:58 [facility] MPV 10.8 9.5 - 12.7 fl 08/20/2017 7:58 [facility] % Neutrophils 58.0 % 08/20/2017 7:58 [facility] % Lymphocytes 31.0 % 08/20/2017 7:58 [facility] % Monocytes 8.9 % 08/20/2017 7:58 EDT [facility] % Eosinophils 1.3 % 08/20/2017 7:58 T [facility] % Basophils 0.5 % 08/20/2017 7:58 [facility] % Immature Grans 0.3 % 08/20/2017 7:58 [facility] ABS Neutrophils 5.30 2.20 - 8.85 K/cmm 08/20/2017 7:58 T [facility] ABS Lymphs 2.83 1.09 - 3.30 K/cm 08/20/2017 7:58 T [facility] ABS Monocytes 0.81(H) 0.1 - 0.8 K/cm 08/20/2017 7:58 [facility] ABS Eosinophils 0.12 0.03 - 0.61 K/cmm 08/20/2017 7:58 [facility] ABS Basophils 0.05 0.01 - 0.11 K/cmm 08/20/2017 7:58 [facility] ABS Immature Grans 0.03 0 - 0.06 K/cmm 08/20/2017 7:58 [facility] Type of Diff: Automated 08/20/2017 7:58 [facility] Blood specimen (specimen) BLOOD SPECIMEN / Unknown 08/20/2017 7:24 EDT 08/20/2017 7:50 EDT Marlon Cabezas MD PACKAGES & DNA PROBE ORDERABLES [facility] [address] [place] [address] * VARICELLA IGG ANTIBODY (08/19/2017 18:09 EDT) Varicella IgG Ab Positive 08/22/2017 12:50 EDT [facility] Comment: Presence of detectable Varicella Zoster virus IgG antibodies. Blood specimen (specimen) BLOOD SPECIMEN / Unknown 08/19/2017 18:09 EDT 08/19/2017 18:34 EDT Marlon Cabezas MD IMMUNOLOGY AND BRANDON HORAN ORDERABLES [facility] [address] [place] [address] * SECONDARY READ NEURO MR (08/19/2017 15:55 EDT) Anatomical Region Laterality Modality Other 08/19/2017 15:5 5 EDT 08/19/2017 22:20 EDT Narrative 08/19/2017 22:20 EDT SECONDARY READ NEURO MR ??08/19/2017 3:55 PM Clinical History/Comments: Left occipital hemorrhage, rule out underlying lesion - [facility] 08/17/17 MR head. 2nd opinion report on contrast-enhanced MRI of the brain from [facility] on August 17, 2017, was requested by Dr. Rousseau. Sagittal T2, coronal T1 postcontrast and axial T1, T2, gradient-echo, T1 postcontrast, T2 FLAIR and DWI MR images of the brain were provided for review. Findings: There is a left occipital lobe hematoma present which measures approximately 11 x 20 x 20 mm in maximal dimensions. This demonstrates susceptibility on the gradient-echo sequence and is partially T1 hyperintense on the precontrast images. A small amount of surrounding vasogenic edema is demonstrated. There is mild associated local sulcal effacement and mild mass effect on the occipital horn of the left lateral ventricle. No associated contrast enhancement is appreciated. Signal intensity throughout the brain and brainstem is otherwise unremarkable. The right lateral, 3rd and 4th ventricles are normal in caliber. There is no midline shift. The basilar cisterns are patent. The cerebellar tonsils are in normal position. Flow voids are present in the major intracranial arteries and dural venous sinuses. Moderate nodular mucosal thickening is demonstrated in the right sphenoid sinus. A right sphenoid sinus air-fluid level is also demonstrated. The mastoid air cells are clear. No orbital abnormality is appreciated. Impression: 1. Left occipital lobe hematoma without an underlying mass or vascular malformation identified. Repeat contrast-enhanced MRI of the brain is suggested once acute blood products have resolved as these could obscure an underlying lesion. 2. Right sphenoid sinus mucosal thickening and fluid. This should be correlated clinically for signs and symptoms of sinusitis. Procedure Note Karena Martinez MD - 08/19/2017 SECONDARY READ NEURO MR 08/19/2017 3:55 PM Clinical History/Comments: Left occipital hemorrhage, rule out underlying lesion - [facility] 08/17/17 MR head. 2nd opinion report on contrast-enhanced MRI of the brain from [facility] on August 17, 2017, was requested by Dr. Rousseau. Sagittal T2, coronal T1 postcontrast and axial T1, T2, gradient-echo, T1 postcontrast, T2 FLAIR and DWI MR images of the brain were provided for review. Findings: There is a left occipital lobe hematoma present which measures approximately 11 x 20 x 20 mm in maximal dimensions. This demonstrates susceptibility on the gradient-echo sequence and is partially T1 hyperintense on the precontrast images. A small amount of surrounding vasogenic edema is demonstrated. There is mild associated local sulcal effacement and mild mass effect on the occipital horn of the left lateral ventricle. No associated contrast enhancement is appreciated. Signal intensity throughout the brain and brainstem is otherwise unremarkable. The right lateral, 3rd and 4th ventricles are normal in caliber. There is no midline shift. The basilar cisterns are patent. The cerebellar tonsils are in normal position. Flow voids are present in the major intracranial arteries and dural venous sinuses. Moderate nodular mucosal thickening is demonstrated in the right sphenoid sinus. A right sphenoid sinus air-fluid level is also demonstrated. The mastoid air cells are clear. No orbital abnormality is appreciated. Impression: 1. Left occipital lobe hematoma without an underlying mass or vascular malformation identified. Repeat contrast-enhanced MRI of the brain is suggested once acute blood products have resolved as these could obscure an underlying lesion. 2. Right sphenoid sinus mucosal thickening and fluid. This should be correlated clinically for signs and symptoms of sinusitis. Brent Rousseau MD IMG OTHER IMAGING OR DERABLES * IR CAROTID CEREBRAL BILATERAL (08/19/2017 15:41 EDT) Anatomical Region Laterality Modality Other 08/19/2017 15:4 1 EDT 08/19/2017 17:21 EDT Narrative 08/19/2017 17:21 EDT Diagnostic Cerebral Angiogram History: ICH Vessels Selected: ? Right internal carotid artery Left internal carotid artery Right external carotid artery Left external carotid artery Right vertebral artery Left vertebral artery Vessels Imaged: ?? Bilateral intracranial internal carotid arteries, bilateral intracranial vertebral arteries and bilateral external carotid arteries. Hemostasis: Mynx Informed Consent: The risks, benefits and alternatives of this procedure were discussed with the patient. All of the patient's questions were answered. The patient gave both written and verbal consent for the procedure and conscious sedation. A timeout was performed to confirm the patient identification and procedure. Technique: The patient was positioned supine and the groins were sterilely prepped and draped in usual fashion. Conscious sedation was achieved via IV versed and fentanyl under the continuous observation heart rate, blood pressure and oxygen saturation. ??Subsequently, the skin and subcutaneous soft tissues overlying the right common femoral artery were anesthetized with 1% lidocaine. A 3 mm dermatotomy was then performed. Then, using Seldinger technique, a 4 [place] SHANIQUE catheter was directed over an angled Terumo Glidewire to selectively catheterize the ??bilateral internal carotid , bilateral external carotid and bilateral vertebral arteries. Each selected vessel underwent diagnostic imaging. ??At the conclusion of the procedure, a roadmap was performed of the right external iliac artery to assess the puncture site. Then, the catheter was removed and hemostasis obtained via successful Mynx deployment and manual compression. Findings: Right internal carotid artery: ??The distal cervical and intracranial portions of the right internal carotid artery are normal. The carotid terminus as well as the right anterior cerebral and middle cerebral artery branches are normal. ??The venous phase is normal. Left internal carotid artery: ??The distal cervical and intracranial portions of the left internal carotid artery are normal. The carotid terminus as well as the left anterior cerebral and middle cerebral arteries are normal. The venous phase is normal. Right external carotid artery: The right external carotid artery, as well as its major branches including the occipital, superficial temporal, middle meningeal and internal maxillary arteries are normal. There is no arteriovenous shunting. Left external carotid artery: The left external carotid artery, as well as its major branches including the occipital, superficial temporal, middle meningeal and internal maxillary arteries are normal. There is no arteriovenous shunting. Right vertebral artery: ??The distal cervical and intracranial portions of the right vertebral artery are normal. The right posterior inferior cerebellar artery as well as the bilateral anterior inferior cerebellar arteries and basilar trunk are normal. The bilateral superior cerebellar and posterior cerebral arteries are normal. The venous phase is normal. Left vertebral artery: The distal cervical and intracranial portions of left vertebral artery are normal. The left posterior inferior cerebellar artery is normal. ??The basilar trunk and distal basilar branches are redemonstrated and normal. ??The venous phase is normal. Conclusion: Normal cerebral angiogram. Total Dose: 82,042 mGycm2 Total Contrast: 45 cc of Omnipaque 300. Procedure Note Filiberto Shi Chicho, - 08/19/2017 Diagnostic Cerebral Angiogram History: ICH Vessels Selected: Right internal carotid artery Left internal carotid artery Right external carotid artery Left external carotid artery Right vertebral artery Left vertebral artery Vessels Imaged: Bilateral intracranial internal carotid arteries, bilateral intracranial vertebral arteries and bilateral external carotid arteries. Hemostasis: Mynx Informed Consent: The risks, benefits and alternatives of this procedure were discussed with the patient. All of the patient's questions were answered. The patient gave both written and verbal consent for the procedure and conscious sedation. A timeout was performed to confirm the patient identification and procedure. Technique: The patient was positioned supine and the groins were sterilely prepped and draped in usual fashion. Conscious sedation was achieved via IV versed and fentanyl under the continuous observation heart rate, blood pressure and oxygen saturation. Subsequently, the skin and subcutaneous soft tissues overlying the right common femoral artery were anesthetized with 1% lidocaine. A 3 mm dermatotomy was then performed. Then, using Seldinger technique, a 4 [place] SHANIQUE catheter was directed over an angled Terumo Glidewire to selectively catheterize the bilateral internal carotid , bilateral external carotid and bilateral vertebral arteries. Each selected vessel underwent diagnostic imaging. At the conclusion of the procedure, a roadmap was performed of the right external iliac artery to assess the puncture site. Then, the catheter was removed and hemostasis obtained via successful Mynx deployment and manual compression. Findings: Right internal carotid artery: The distal cervical and intracranial portions of the right internal carotid artery are normal. The carotid terminus as well as the right anterior cerebral and middle cerebral artery branches are normal. The venous phase is normal. Left internal carotid artery: The distal cervical and intracranial portions of the left internal carotid artery are normal. The carotid terminus as well as the left anterior cerebral and middle cerebral arteries are normal. The venous phase is normal. Right external carotid artery: The right external carotid artery, as well as its major branches including the occipital, superficial temporal, middle meningeal and internal maxillary arteries are normal. There is no arteriovenous shunting. Left external carotid artery: The left external carotid artery, as well as its major branches including the occipital, superficial temporal, middle meningeal and internal maxillary arteries are normal. There is no arteriovenous shunting. Right vertebral artery: The distal cervical and intracranial portions of the right vertebral artery are normal. The right posterior inferior cerebellar artery as well as the bilateral anterior inferior cerebellar arteries and basilar trunk are normal. The bilateral superior cerebellar and posterior cerebral arteries are normal. The venous phase is normal. Left vertebral artery: The distal cervical and intracranial portions of left vertebral artery are normal. The left posterior inferior cerebellar artery is normal. The basilar trunk and distal basilar branches are redemonstrated and normal. The venous phase is normal. Conclusion: Normal cerebral angiogram. Total Dose: 82,042 mGycm2 Total Contrast: 45 cc of Omnipaque 300. Zachary Lantigua MD IMG IR ORDERABLES * IR LUMBAR PUNCTURE (08/19/2017 15:41 EDT) Anatomical Region Laterality Modality Other 08/19/2017 15:4 1 EDT 08/19/2017 17:16 EDT Narrative 08/19/2017 17:16 EDT Fluoroscopically Guided Lumbar Puncture History: ICH Informed Consent: The risks, benefits and alternatives of this procedure were discussed with the patient. ??All of the patient's questions were answered. The patient gave both written and verbal consent for the procedure and conscious sedation. Technique: Conscious sedation was achieved via IV Versed and fentanyl under the continuous observation of heart rate, blood pressure and oxygen saturation. The patient was positioned left lateral decubitus and the low back sterilely prepped and draped in usual fashion. Subsequently, the skin and subcutaneous tissues at the L3-4 level were anesthetized with 1% lidocaine. Then, using fluoroscopic guidance, a 22-gauge spinal needle was directed into the thecal sac with return of clear CSF. The opening pressure was 23 cm H2O. Four specimen containers, containing a total of 18 cc CSF were obtained and labeled. The needle was removed. The patient tolerated procedure well. There were no immediate complications. Conclusion: Successful lumbar puncture. Procedure Note Filiberto Shi DO - 08/19/2017 Fluoroscopically Guided Lumbar Puncture History: ICH Informed Consent: The risks, benefits and alternatives of this procedure were discussed with the patient. All of the patient's questions were answered. The patient gave both written and verbal consent for the procedure and conscious sedation. Technique: Conscious sedation was achieved via IV Versed and fentanyl under the continuous observation of heart rate, blood pressure and oxygen saturation. The patient was positioned left lateral decubitus and the low back sterilely prepped and draped in usual fashion. Subsequently, the skin and subcutaneous tissues at the L3-4 level were anesthetized with 1% lidocaine. Then, using fluoroscopic guidance, a 22-gauge spinal needle was directed into the thecal sac with return of clear CSF. The opening pressure was 23 cm H2O. Four specimen containers, containing a total of 18 cc CSF were obtained and labeled. The needle was removed. The patient tolerated procedure well. There were no immediate complications. Conclusion: Successful lumbar puncture. Marlon Cabezas MD IMG IR ORDERABLES * INPATIENT ADD-ON (08/19/2017 14:55 EDT) Tests to be added ANTI 08/19/2017 14:52 EDT [facility] Comment:VZV IGG IN CSF Number for problems [id number] 08/19/2017 16:03 EDT [facility] Accession number REPUBLIC CODE [id number] NAME OF TEST VARICELLA ZOSTER VIRUS IGG ANTIBODY ON CSF, PRINTED REPUBLIC INFORMATION AND GAVE TO DEPARTMENT 5 AT 1603 LMT 08/19/2017 16:03 EDT [facility] TOPOGRAPHY UNKNOWN / Unknown 08/19/2017 14:55 EDT 08/19/2017 16:02 EDT Marlon Cabezas MD HEMATOLOGY & PF4 ORD ERABLES [facility] [address] [place] [address] * MISCELLANEOUS TEST, DICKERSON (08/19/2017 14:17 EDT) Test Name VARICELLA ZOSTER VIRUS IGG AB ON CSF 08/19/2017 17:12 EDT [facility] Result See Pathology Scanned Report in PRISM. 08/24/2017 8:40 EDT [facility] Ref Range See Pathology Scanned Report in PRISM. 08/24/2017 8:40 EDT [facility] Ref Lab [facility], [place], [place] 08/24/2017 8:40 EDT [facility] CEREBROSPINAL FLUID / Unknown 08/19/2017 14:17 EDT 08/19/2017 14:31 EDT Gisele Mccrary MD CHEMISTRY & BLOOD GA S ORDERABLES Performing Organization Address City/[facility]/ZIP Co de Phone Number [facility] [address] [place] [address] * GLUCOSE CSF (08/19/2017 14:17 EDT) Glucose, CSF 50 mg/dl 08/19/2017 15:23 EDT [facility] Comment: Ref Range=60-80% of plasma glucose result Cerebrospinal fluid (substance) CEREBROSPINAL FLUID / Unknown 08/19/2017 14:17 EDT 08/19/2017 14:31 EDT Zachary Lantigua MD GEN LAB UNIT COLLEC T ORDERABLES Performing Organization Address [facility] Co de Phone Number [facility] [address] [place] [address] * TOTAL PROTEIN, CSF (08/19/2017 14:17 EDT) Total Protein, CSF 28 12 - 60 mg/dl 08/19/2017 15:23 EDT [facility] Cerebrospinal fluid (substance) CEREBROSPINAL FLUID / Unknown 08/19/2017 14:17 EDT 08/19/2017 14:31 EDT Zachary Lantigua MD GEN LAB UNIT COLLEC T ORDERABLES Performing Organization Address City/[facility]/ZIP Co de Phone Number [facility] [address] [place] [address] * CELL COUNT,CSF (08/19/2017 14:17 EDT) RBC, CSF None seen /cmm 08/19/2017 15:15 EDT [facility] Nucleated Cells None seen 0 - 5 /cmm 08/19/2017 15:15 [facility] Total Vol. 20.0 ml 08/19/2017 15:15 [facility] Tube Cntd. 4 08/19/2017 15:15 [facility] Tube Vol. 7.0 ml 08/19/2017 15:15 [facility] CSF Comment Clear and Colorless 08/19/2017 15:15 [facility] Cerebrospinal fluid (substance) CEREBROSPINAL FLUID / Unknown 08/19/2017 14:17 EDT 08/19/2017 14:31 EDT Zachary Lantigua MD GEN LAB UNIT COLLEC T ORDERABLES Performing Organization Address [facility]/ZIP Co de Phone Number [facility] [address] [place] [address] * CSF VIRUS DETECTION (08/19/2017 14:17 EDT) Result No Enterovirus RNA detected by PCR. 08/20/2017 11:14 [facility] Result No Herpes simplex virus Type 1 or Type 2 detected by PCR. 08/20/2017 11:14 [facility] Result No Varicella zoster virus DNA detected by PCR. 08/20/2017 11:14 [facility] Result (Note) Analyte Specific Reagent. This test was developed and its performance characteristics determined by Laboratory Medicine and Pathology, [facility]. This test has not been cleared or approved by the U.S. Food and Drug Administration. FDA does not require this test to go through premarket FDA review. This test is used for clinical purposes. It should not be regarded as investigational or for research. This laboratory is certified under the Clinical Laboratory Improvement Amendments of 1988 (CLIA) as qualified to perform high complexity clinical laboratory testing. 08/20/2017 11:14 T [facility] CEREBROSPINAL FLUID / Unknown 08/19/2017 14:17 EDT 08/19/2017 14:52 EDT Zachary Lantigua MD MICROBIOLOGY - GENE RAL ORDERABLES Performing Organization Address City/[facility]/ZIP Co de Phone Number [facility] [address] [place] [address] * RAPID HIV 1/2 ANTIGEN AND ANTIBODY, 4TH GENERATION (08/19/2017 9:18 EDT) [facility] Rapid HIV 1/2 Ab Negative Negative 08/20/19 18 12:14 EDT [facility] Comment: Fourth generation assay performed on the Siemens Centaur. If acute HIV-1 infection is suspected in a high risk patient, submit plasma specimen for HIV-1 RNA quantification test. The results of this assay can be falsely lowered due to the consumption of Biotin. Blood specimen (specimen) BLOOD SPECIMEN / Unknown 08/19/2017 9:18 EDT 08/19/2017 10:16 EDT Marlon Cabezas MD CHEMISTRY & BLOOD GA S ORDERABLES [facility] [address] [place] [address] * INPATIENT ADD-ON (08/19/2017 7:45 EDT) [facility] Tests to be added ANAIFA, ANCAIF, CRPP, SWE 08/19/2017 7:43 EDT [facility] Number for problems [id number] 08/19/2017 8:04 EDT [facility] Accession number [id number] 08/19/2017 8:04 EDT [facility] Comment:Corrected on 08/19 A T 0804: Previously reported as [id number] TOPOGRAPHY UNKNOWN / Unknown 08/19/2017 7:45 EDT 08/19/2017 8:03 EDT Gisele Mccrary MD HEMATOLOGY & PF4 ORD ERABLES [facility] [address] [place] [id number] * C REACTIVE PROTEIN (08/19/2017 6:57 EDT) [facility] C Reactive Protein <7.0 <10.0 mg/L 08/19/2017 8:49 EDT [facility] BLOOD SPECIMEN / Unknown 08/19/2017 6:57 EDT 08/19/2017 7:31 EDT Marlon Cabezas MD CHEMISTRY & BLOOD GA S ORDERABLES Performing Organization Address City/[facility]/ZIP Co de Phone Number [facility] [address] [place] [address] * ANCA (08/19/2017 6:57 EDT) ANCA Interpretation Negative Negative 08/22/2017 13:41 EDT [facility] Comment: No titer performed, ANCA screen is negative. Results were obtained with the INOVA NOVA Lite ANCA kit by indirect immunofluorescence. BLOOD SPECIMEN / Unknown 08/19/2017 6:57 EDT 08/19/2017 7:31 EDT Marlon Cabezas MD IMMUNOLOGY AND SEROL OGY ORDERABLES Performing Organization Address [facility] Co de Phone Number [facility] [address] [place] [address] * ANTI NUCLEAR ANTIBODY (08/19/2017 6:57 EDT) TANVI Interpretation Negative Negative 2017 13:41 EDT [facility] Comment: No titer performed, TANVI screen is negative. Results were obtained with the INOVA NOVA Lite HEp-2 TANVI kit by indirect immunofluorescence. BLOOD SPECIMEN / Unknown 08/19/2017 6:57 EDT 08/19/2017 7:31 EDT Marlon Cabezas MD IMMUNOLOGY AND SEROL OGY ORDERABLES Performing Organization Address City/[facility] Co de Phone Number [facility] [address] [place] [address] * (ABNORMAL) SED. RATE:WESTERGREN (08/19/2017 6:57 EDT) Sed. Rate Westergren 46(H) 0 - 20 mm/hr 08/19/2017 8:56 EDT [facility] BLOOD SPECIMEN / Unknown 08/19/2017 6:57 EDT 08/19/2017 7:31 EDT Marlon Cabezas MD HEMATOLOGY & PF4 ORD ERABLES Performing Organization Address City/[facility] Co de Phone Number [facility] [address] [place] [address] * PHOSPHORUS (08/19/2017 6:57 EDT) Phosphorus 3.3 2.5 - 4.5 mg/dl 08/19/2017 8:05 EDT [facility] Blood specimen (specimen) BLOOD SPECIMEN / Unknown 08/19/2017 6:57 EDT 08/19/2017 7:31 EDT Marlon Cabezas MD CHEMISTRY & BLOOD GA S ORDERABLES Performing Organization Address [facility] Co de Phone Number [facility] [address] [place] [address] * MAGNESIUM (08/19/2017 6:57 EDT) Magnesium 1.9 1.7 - 2.8 mg/dl 08/19/2017 8:05 EDT [facility] Blood specimen (specimen) BLOOD SPECIMEN / Unknown 08/19/2017 6:57 EDT 08/19/2017 7:31 EDT Marlon Cabezas MD CHEMISTRY & BLOOD GA S ORDERABLES Performing Organization Address [facility] Co de Phone Number [facility] [address] [place] [address] * CALCIUM (08/19/2017 6:57 EDT) Calcium 9.0 8.5 - 10.5 mg/dl 08/19/2017 8:05 EDT [facility] Calculated Calcium 9.1 8.5 - 10.5 mg/dl 08/19/2017 8:05 EDT [facility] Blood specimen (specimen) BLOOD SPECIMEN / Unknown 08/19/2017 6:57 EDT 08/19/2017 7:31 EDT Marlon Cabezas MD CHEMISTRY & BLOOD GA S ORDERABLES Performing Organization Address [facility] Co de Phone Number [facility] [address] [place] [address] * CREATININE (08/19/2017 6:57 EDT) Creatinine 0.63 0.52 - 1.04 mg/dl 08/19/2017 8:05 EDT [facility] GFR, Calculated 114 >60 ml/min/1.7 3m2 08/19/2017 8:05 EDT [facility] Comment: eGFR calculated using CKD-EPI equation for non Americans. Multiply eGFR by 1.16 for Americans. Blood specimen (specimen) BLOOD SPECIMEN / Unknown 08/19/2017 6:57 EDT 08/19/2017 7:31 EDT Marlon Cabezas MD CHEMISTRY & BLOOD GA S ORDERABLES Performing Organization Address [facility] Co de Phone Number [facility] [address] [place] [address] * BUN (08/19/2017 6:57 EDT) BUN 10 10 - 26 mg/dl 08/19/2017 8:05 EDT [facility] Blood specimen (specimen) BLOOD SPECIMEN / Unknown 08/19/2017 6:57 EDT 08/19/2017 7:31 EDT Marlon Cabezas MD CHEMISTRY & BLOOD GA S ORDERABLES Performing Organization Address [facility] Co de Phone Number [facility] [address] [place] [address] * ELECTROLYTES (08/19/2017 6:57 EDT) Sodium 140 136 - 145 mEq/L 08/19/2017 8:05 EDT [facility] Potassium 4.1 3.5 - 5.0 mEq/L 08/19/2017 8:05 EDT [facility] Chloride 107 96 - 110 mEq/L 08/19/2017 8:05 EDT [facility] CO2 24 22 - 32 mEq/L 08/19/2017 8:05 EDT [facility] Blood specimen (specimen) BLOOD SPECIMEN / Unknown 08/19/2017 6:57 EDT 08/19/2017 7:31 EDT Marlon Cabezas MD CHEMISTRY & BLOOD GA S ORDERABLES [facility] [address] [place] [address] * (ABNORMAL) HEMAGRAM AND DIFFERENTIAL (08/19/2017 6:57 EDT) WBC 9.89 4.0 - 12.4 K/cmm 08/19/2017 7:43 [facility] RBC 4.22 3.86 - 5.04 M/cmm 08/19/2017 7:43 [facility] Hemoglobin 12.3 11.6 - 15.2 gm/dl 08/19/2017 7:43 [facility] HCT 35.0 34.9 - 44.4 % 08/19/2017 7:43 [facility] MCV 83 81 - 98 fl 08/19/2017 7:43 [facility] MCH 29.1 26.7 - 33.3 pg 08/19/2017 7:43 [facility] MCHC 35.1 32.1 - 35.9 gm/dl 08/19/2017 7:43 [facility] RDW-CV 12.7 <14.7 % 08/19/2017 7:43 [facility] RDW-SD 38.5 <50.4 fl 08/19/2017 7:43 [facility] PLT 255 141 - 377 K/cmm 08/19/2017 7:43 [facility] MPV 11.0 9.5 - 12.7 fl 08/19/2017 7:43 [facility] % Neutrophils 51.6 % 08/19/2017 7:43 [facility] % Lymphocytes 37.7 % 08/19/2017 7:43 [facility] % Monocytes 9.1 % 08/19/2017 7:43 EDT [facility] % Eosinophils 0.7 % 08/19/2017 7:43 EDT [facility] % Basophils 0.5 % 08/19/2017 7:43 [facility] % Immature Grans 0.4 % 08/19/2017 7:43 [facility] ABS Neutrophils 5.10 2.20 - 8.85 K/cmm 08/19/2017 7:43 [facility] ABS Lymphs 3.73(H) 1.09 - 3.30 K/cmm 08/19/2017 7:43 [facility] ABS Monocytes 0.90(H) 0.1 - 0.8 K/cm 08/19/2017 7:43 [facility] ABS Eosinophils 0.07 0.03 - 0.61 K/cmm 08/19/2017 7:43 [facility] ABS Basophils 0.05 0.01 - 0.11 K/cmm 08/19/2017 7:43 [facility] ABS Immature Grans 0.04 0 - 0.06 K/cmm 08/19/2017 7:43 [facility] Type of Diff: Automated 08/19/2017 7:43 [facility] Blood specimen (specimen) BLOOD SPECIMEN / Unknown 08/19/2017 6:57 EDT 08/19/2017 7:31 EDT Marlon Cabezas MD PACKAGES & DNA PROBE ORDERABLES [facility] [address] [place] [address] * CT HEAD WO CONTRAST (08/18/2017 16:48 EDT) Anatomical Region Laterality Modality Other 08/18/2017 16:4 8 EDT 08/18/2017 17:10 EDT Narrative 08/18/2017 17:[address] HEAD WITHOUT CONTRAST HISTORY: Follow-up up left occipital lobe hemorrhage. TECHNIQUE: CT head without contrast. COMPARISON: CT angiogram of the head 08/18/2017. Head CT 08/17/2017. FINDINGS: The hematoma in the left occipital lobe and its surrounding edema have not significantly changed compared to 08/17/2017. There is little, if any, mass effect on the adjacent parenchyma. There is no new hemorrhage. The brain parenchyma demonstrates no other significant abnormality. The ventricles, cisterns, and sulci are normal in size and configuration. There is no midline shift or extra-axial collection. Mural thickening is again demonstrated in the paranasal sinuses and ethmoid air cells, most severely affecting the right sphenoid sinus. The bones and extracranial soft tissues are otherwise unremarkable. IMPRESSION: Unchanged left occipital lobe hemorrhage and surrounding edema. Procedure Note Igor Reid MD - 08/18/2017 CT HEAD WITHOUT CONTRAST HISTORY: Follow-up up left occipital lobe hemorrhage. TECHNIQUE: CT head without contrast. COMPARISON: CT angiogram of the head 08/18/2017. Head CT 08/17/2017. FINDINGS: The hematoma in the left occipital lobe and its surrounding edema have not significantly changed compared to 08/17/2017. There is little, if any, mass effect on the adjacent parenchyma. There is no new hemorrhage. The brain parenchyma demonstrates no other significant abnormality. The ventricles, cisterns, and sulci are normal in size and configuration. There is no midline shift or extra-axial collection. Mural thickening is again demonstrated in the paranasal sinuses and ethmoid air cells, most severely affecting the right sphenoid sinus. The bones and extracranial soft tissues are otherwise unremarkable. IMPRESSION: Unchanged left occipital lobe hemorrhage and surrounding edema. Igor Elliott MD [facility] CT ORDERABLES * CT ABDOMEN, PELVIS W CONTRAST (08/18/2017 16:47 EDT) Anatomical Region Laterality Modality Other 08/18/2017 16:4 7 EDT 08/18/2017 17:03 EDT Narrative 08/18/2017 17:[address] ABDOMEN, PELVIS W CONTRAST ??08/18/2017 4:47 PM Signs and Symptoms/Comments: ?? intracranial bleed unclear reason Technique: CT of the abdomen and pelvis was performed following the administration intravenous contrast; coronal and sagittal multiplanar reconstructions generated. Comparison: None. Findings: Lower chest: For findings above the diaphragm please refer to the dedicated chest CT completed concomitantly. Hepatobiliary: The liver parenchyma is normal in appearance. High density material is seen within the gallbladder lumen which is likely related to vicarious excretion from previous contrast-enhanced studies. No abnormality of the biliary tree is seen. Spleen, pancreas, adrenal glands: No significant abnormality. Kidneys, ureters, bladder: The kidneys enhance symmetrically. No nephrolithiasis or hydroureteronephrosis. No significant abnormality of the urinary bladder. Uterus, ovaries: The uterus is normal in appearance. Multiple follicles are seen bilaterally. No adnexal mass. Bowel: Scattered diverticuli are seen without surrounding inflammatory change. There is no bowel obstruction and the bowel wall enhances normally. The appendix is normal in appearance. Peritoneal cavity / Subperitoneal space: There is no free fluid, fluid collection, or pneumoperitoneum. No peritoneal nodularity is seen. Lymphovascular: No lymphadenopathy. No significant abnormalities the major vascular structures. Abdominal wall: There is no bowel containing hernia. Musculoskeletal: No significant abnormality is identified. Impression: No significant abnormality within the abdomen or pelvis. I have personally reviewed the images and the above interpretation and agree with the findings. Procedure Note Ron Panchal MD - 08/18/2017 CT ABDOMEN, PELVIS W CONTRAST 08/18/2017 4:47 PM Signs and Symptoms/Comments: intracranial bleed unclear reason Technique: CT of the abdomen and pelvis was performed following the administration intravenous contrast; coronal and sagittal multiplanar reconstructions generated. Comparison: None. Findings: Lower chest: For findings above the diaphragm please refer to the dedicated chest CT completed concomitantly. Hepatobiliary: The liver parenchyma is normal in appearance. High density material is seen within the gallbladder lumen which is likely related to vicarious excretion from previous contrast-enhanced studies. No abnormality of the biliary tree is seen. Spleen, pancreas, adrenal glands: No significant abnormality. Kidneys, ureters, bladder: The kidneys enhance symmetrically. No nephrolithiasis or hydroureteronephrosis. No significant abnormality of the urinary bladder. Uterus, ovaries: The uterus is normal in appearance. Multiple follicles are seen bilaterally. No adnexal mass. Bowel: Scattered diverticuli are seen without surrounding inflammatory change. There is no bowel obstruction and the bowel wall enhances normally. The appendix is normal in appearance. Peritoneal cavity / Subperitoneal space: There is no free fluid, fluid collection, or pneumoperitoneum. No peritoneal nodularity is seen. Lymphovascular: No lymphadenopathy. No significant abnormalities the major vascular structures. Abdominal wall: There is no bowel containing hernia. Musculoskeletal: No significant abnormality is identified. Impression: No significant abnormality within the abdomen or pelvis. I have personally reviewed the images and the above interpretation and agree with the findings. Igor Elliott MD IM CT ORDERABLES * CT CHEST W CONTRAST (08/18/2017 16:46 EDT) Anatomical Region Laterality Modality Other 08/18/2017 16:4 6 EDT 08/18/2017 17:05 EDT Narrative 08/18/2017 17:[address] CHEST W CONTRAST ??08/18/2017 4:46 PM Clinical History/Comments: evaluate for cause of intracranial bleed Technique: A single breath-hold helical CT acquisition was performed through the chest on a multidetector-row scanner with a reconstructed slice thickness of 3 mm and retrospectively reconstructed 0.9 mm thick sections with 0.45 mm overlapping intervals. ??The scans were obtained from the lung apices through the bases during the intravenous administration of 70-100 cc of 350-370 mg% nonionic contrast injected at a rate of 2 cc/second. Scans were reviewed on a dedicated PACS workstation for analysis. Exam description: CT of the chest with contrast Comparison: None. Findings: Lower neck: No significant abnormalities. Chest wall soft tissues: No abnormalities. Mediastinum and jose luis: No enlarged mediastinal or hilar lymph nodes. ?? The esophagus appears normal. Heart and mediastinal vasculature: ??The heart is normal in size. There is no coronary or aortic calcific atherosclerosis. Large airways: ??No significant abnormalities. Lungs: ??A 3 mm nodule is identified in the posterior basal segment of the left lower lobe. A triangular-shaped nodule along the left oblique fissure is most likely an intrapulmonary lymph node. The lungs are otherwise clear. Pleura: No pleural abnormality. Upper abdomen (limited to upper abdomen, not optimized for abdominal imaging): Please see dedicated same day abdomen and pelvis CT for more detailed findings. Bones: ??Inferior endplate of T7, there is a broad based Schmorl's node. There is no concerning osseous lesion. Impression: 1. ??No significant abnormalities (no evidence of malignancy, infection or specific findings of vasculitis). 2. ??A single 3 mm nodule in the posterior basal segment of the left lower lobe is present, likely benign. In this patient with no reported smoking history, no further imaging follow-up is recommended. I have personally reviewed the images and the above interpretation and agree with the findings. Procedure Note Alex Romero MD - 08/18/2017 CT CHEST W CONTRAST 08/18/2017 4:46 PM Clinical History/Comments: evaluate for cause of intracranial bleed Technique: A single breath-hold helical CT acquisition was performed through the chest on a multidetector-row scanner with a reconstructed slice thickness of 3 mm and retrospectively reconstructed 0.9 mm thick sections with 0.45 mm overlapping intervals. The scans were obtained from the lung apices through the bases during the intravenous administration of 70-100 cc of 350-370 mg% nonionic contrast injected at a rate of 2 cc/second. Scans were reviewed on a dedicated PACS workstation for analysis. Exam description: CT of the chest with contrast Comparison: None. Findings: Lower neck: No significant abnormalities. Chest wall soft tissues: No abnormalities. Mediastinum and jose luis: No enlarged mediastinal or hilar lymph nodes. The esophagus appears normal. Heart and mediastinal vasculature: The heart is normal in size. There is no coronary or aortic calcific atherosclerosis. Large airways: No significant abnormalities. Lungs: A 3 mm nodule is identified in the posterior basal segment of the left lower lobe. A triangular-shaped nodule along the left oblique fissure is most likely an intrapulmonary lymph node. The lungs are otherwise clear. Pleura: No pleural abnormality. Upper abdomen (limited to upper abdomen, not optimized for abdominal imaging): Please see dedicated same day abdomen and pelvis CT for more detailed findings. Bones: Inferior endplate of T7, there is a broad based Schmorl's node. There is no concerning osseous lesion. Impression: 1. No significant abnormalities (no evidence of malignancy, infection or specific findings of vasculitis). 2. A single 3 mm nodule in the posterior basal segment of the left lower lobe is present, likely benign. In this patient with no reported smoking history, no further imaging follow-up is recommended. I have personally reviewed the images and the above interpretation and agree with the findings. Igor Elliott MD IMG CT ORDERABLES * PHOSPHORUS (08/18/2017 6:41 EDT) Phosphorus 3.6 2.5 - 4.5 mg/dl 08/18/2017 7:23 EDT [facility] Blood specimen (specimen) BLOOD SPECIMEN / Unknown 08/18/2017 6:41 EDT 08/18/2017 7:03 EDT Marlon Cabezas MD CHEMISTRY & BLOOD GA S ORDERABLES [facility] [address] [place] [address] * MAGNESIUM (08/18/2017 6:41 EDT) Magnesium 1.7 1.7 - 2.8 mg/dl 08/18/2017 7:23 EDT [facility] Blood specimen (specimen) BLOOD SPECIMEN / Unknown 08/18/2017 6:41 EDT 08/18/2017 7:03 EDT Marlon Cabezas MD CHEMISTRY & BLOOD GA S ORDERABLES Performing Organization Address City/[facility]/ZIP Co de Phone Number [facility] [address] [place] [address] * CALCIUM (08/18/2017 6:41 EDT) Calcium 9.5 8.5 - 10.5 mg/dl 08/18/2017 7:23 EDT [facility] Calculated Calcium 9.7 8.5 - 10.5 mg/dl 08/18/2017 7:23 EDT [facility] Blood specimen (specimen) BLOOD SPECIMEN / Unknown 08/18/2017 6:41 EDT 08/18/2017 7:03 EDT Marlon Cabezas MD CHEMISTRY & BLOOD GA S ORDERABLES Performing Organization Address City/[facility]/ZIP Co de Phone Number [facility] [address] [place] [address] * CREATININE (08/18/2017 6:41 EDT) Creatinine 0.64 0.52 - 1.04 mg/dl 08/18/2017 7:23 EDT [facility] GFR, Calculated 114 >60 ml/min/1.7 3m2 08/18/2017 7:23 T [facility] Comment: eGFR calculated using CKD-EPI equation for non Americans. Multiply eGFR by 1.16 for Americans. Blood specimen (specimen) BLOOD SPECIMEN / Unknown 08/18/2017 6:41 EDT 08/18/2017 7:03 EDT Marlon Cabezas MD CHEMISTRY & BLOOD GA S ORDERABLES Performing Organization Address City/[facility]/ZIP Co de Phone Number [facility] [address] [place] [address] * (ABNORMAL) BUN (08/18/2017 6:41 EDT) BUN 7(L) 10 - 26 mg/dl 08/18/2017 7:23 EDT [facility] Blood specimen (specimen) BLOOD SPECIMEN / Unknown 08/18/2017 6:41 EDT 08/18/2017 7:03 EDT Marlon Cabezas MD CHEMISTRY & BLOOD GA S ORDERABLES Performing Organization Address City/[facility]/ZIP Co de Phone Number [facility] [address] [place] [address] * ELECTROLYTES (08/18/2017 6:41 EDT) Sodium 139 136 - 145 mEq/L 08/18/2017 7:23 EDT [facility] Potassium 4.3 3.5 - 5.0 mEq/L 08/18/2017 7:23 T [facility] Chloride 106 96 - 110 mEq/L 08/18/2017 7:23 T [facility] CO2 24 22 - 32 mEq/L 08/18/2017 7:23 EDT [facility] Blood specimen (specimen) BLOOD SPECIMEN / Unknown 08/18/2017 6:41 EDT 08/18/2017 7:03 EDT Marlon Cabezas MD CHEMISTRY & BLOOD GA S ORDERABLES [facility] [address] [place] [address] * (ABNORMAL) HEMAGRAM AND DIFFERENTIAL (08/18/2017 6:41 EDT) WBC 10.58 4.0 - 12.4 K/cmm [facility]2017 [facility] RBC 4.35 3.86 - 5.04 M/cmm 08/18/2017 7:29 [facility] Hemoglobin 12.6 11.6 - 15.2 gm/dl 08/18/2017 7:29 [facility] HCT 36.5 34.9 - 44.4 % 08/18/2017 7:29 [facility] MCV 84 81 - 98 fl 08/18/2017 7:29 [facility] MCH 29.0 26.7 - 33.3 pg 08/18/2017 7:29 [facility] MCHC 34.5 32.1 - 35.9 gm/dl 08/18/2017 7:29 [facility] RDW-CV 12.5 <14.7 % 08/18/2017 7:29 [facility] RDW-SD 37.9 <50.4 fl 08/18/2017 7:29 [facility] PLT 287 141 - 377 K/cmm 08/18/2017 7:29 [facility] MPV 11.4 9.5 - 12.7 fl 08/18/2017 7:29 [facility] % Neutrophils 68.5 % 08/18/2017 7:29 [facility] % Lymphocytes 22.9 % 08/18/2017 7:29 [facility] % Monocytes 7.6 % 08/18/2017 7:29 [facility] % Eosinophils 0.2 % 08/18/2017 7:29 [facility] % Basophils 0.4 % 08/18/2017 7:29 EDT [facility] % Immature Grans 0.4 % 08/18/2017 7:29 EDT [facility] ABS Neutrophils 7.26 2.20 - 8.85 K/cm 08/18/2017 7:29 EDT [facility] ABS Lymphs 2.42 1.09 - 3.30 K/cm 08/18/2017 7:29 EDT [facility] ABS Monocytes 0.80 0.1 - 0.8 K/cm 08/18/2017 7:29 EDT [facility] ABS Eosinophils 0.02(L) 0.03 - 0.61 K/[facility] 08/18/2017 7:29 EDT [facility] ABS Basophils 0.04 0.01 - 0.11 K/cm 08/18/2017 7:29 EDT [facility] ABS Immature Grans 0.04 0 - 0.06 K/cm 08/18/2017 7:29 EDT [facility] Type of Diff: Automated 08/18/2017 7:29 EDT [facility] Blood specimen (specimen) BLOOD SPECIMEN / Unknown 08/18/2017 6:41 EDT 08/18/2017 7:03 EDT Marlon Cabezas MD PACKAGES & DNA PROBE ORDERABLES [facility] [address] [place] [address] * TYPE AND SCREEN (08/18/2017 6:41 EDT) ABO A [facility] Rh Factor Negative [facility] Antibody Screen Negative [facility] Specimen Expires: 08/21/2017 @ 23:59 [facility] Blood specimen (specimen) 08/18/2017 6:41 EDT Igor Elliott MD BLOOD BANK TESTS [facility] * GLUCOSE, GLUCOMETER (08/18/2017 6:18 EDT) Glucose, Fingerstick 91 70 - 100 mg/dl 08/18/2017 6:18 EDT [facility] [employer] Specialist ID [id number] 08/18/2017 6:18 EDT [facility] Comment:Test Performed by [facility] BLOOD SPECIMEN / Unknown 08/18/2017 6:18 EDT 08/18/2017 6:19 EDT Gisele Mccrary MD CHEMISTRY & BLOOD GA S ORDERABLES Performing Organization Address [facility]/ZIP Co de Phone Number [facility] [address] [place] [address] * MRSA PCR (08/18/2017 6:00 EDT) Result No Staphylococcus aureus detected by PCR. 08/18/2017 13:55 EDT [facility] Specimen of unknown material (specimen) NASAL ROUTE / Unknown 08/18/2017 6:00 EDT 08/18/2017 7:58 EDT Gisele Mccrary MD MICROBIOLOGY - GENER AL ORDERABLES Performing Organization Address [facility] Co de Phone Number [facility] [address] [place] [address] * CT ANGIO HEAD W CONTRAST (08/18/2017 1:47 EDT) Anatomical Region Laterality Modality Other 08/18/2017 1:47 EDT 08/18/2017 10:34 EDT Narrative 08/18/2017 10:[address] ANGIOGRAM AND VENOGRAM OF THE HEAD WITH CONTRAST HISTORY: Left occipital lobe hemorrhage, evaluate for underlying vascular malformation. TECHNIQUE: CT angiogram and venogram of the head with contrast. Maximal intensity projected and 3-D reformatted images were obtained, adjusted, and reviewed prior to interpretation. COMPARISON: Head CT 08/17/2017. Brain MRI 516. FINDINGS: The anterior, middle, and posterior cerebral arteries demonstrate areas of diffuse irregularity, tapering, and narrowing (for example series 303, image 78). The paraclinoid segment of the right internal carotid artery appears narrowed, perhaps mild in severity. There is no severe stenosis or occlusion of the major intracranial arterial vasculature. There is no abnormal enhancement associated with the unchanged left occipital lobe hemorrhage to suggest an underlying vascular malformation. There is a small, 1-2 mm triangular outpouching along the undersurface of the left internal carotid artery at the expected origin of the posterior which likely reflects a small infundibulum although the posterior communicating artery is not well imaged. The dural venous sinuses are widely patent and without stenosis, occlusion, or thrombosis. The deep and major cortical veins are patent. There is no evidence of a cortical vein thrombosis associated with the left occipital lobe hemorrhage. The left occipital lobe hemorrhage and surrounding edema is unchanged. There is no new abnormality of the brain parenchyma. The ventricles, cisterns, and sulci are normal in size and configuration. There is no midline shift or extra-axial collection. Scattered mural thickening is present in the paranasal sinuses and ethmoid air cells. The bones and extracranial soft tissues are otherwise unremarkable. IMPRESSION: Diffuse irregularity, tapering, and focal narrowing of the cerebral arteries and paraclinoid right internal carotid artery. Although a majority of the abnormality may be artifactual, the findings are worrisome for an underlying vasculopathy of any cause (RCVS, vasculitis, autoimmune, etc) and further evaluation by conventional angiogram should be considered. No abnormal enhancement associated with the left occipital lobe hematoma to suggest an underlying vascular malformation. No evidence of cortical vein thrombosis or dural venous sinus thrombosis. An acute hematoma can obscure the relevant abnormality on CT angiography and should the cause of hemorrhage remain unidentified, follow-up imaging is suggested. 1-2 mm outpouching along the undersurface of the left internal carotid artery likely reflects a small infundibulum although the posterior communicating artery is not well imaged. This final report differs significantly from the preliminary resident interpretation that was communicated to the ordering provider.?The final interpretation and recommendations were discussed with Dr. Cabezas at the time of final interpretation. I have personally reviewed the images and the above interpretation and agree with the findings. Procedure Note Igor Reid MD - 08/18/2017 CT ANGIOGRAM AND VENOGRAM OF THE HEAD WITH CONTRAST HISTORY: Left occipital lobe hemorrhage, evaluate for underlying vascular malformation. TECHNIQUE: CT angiogram and venogram of the head with contrast. Maximal intensity projected and 3-D reformatted images were obtained, adjusted, and reviewed prior to interpretation. COMPARISON: Head CT 08/17/2017. Brain MRI 516. FINDINGS: The anterior, middle, and posterior cerebral arteries demonstrate areas of diffuse irregularity, tapering, and narrowing (for example series 303, image 78). The paraclinoid segment of the right internal carotid artery appears narrowed, perhaps mild in severity. There is no severe stenosis or occlusion of the major intracranial arterial vasculature. There is no abnormal enhancement associated with the unchanged left occipital lobe hemorrhage to suggest an underlying vascular malformation. There is a small, 1-2 mm triangular outpouching along the undersurface of the left internal carotid artery at the expected origin of the posterior which likely reflects a small infundibulum although the posterior communicating artery is not well imaged. The dural venous sinuses are widely patent and without stenosis, occlusion, or thrombosis. The deep and major cortical veins are patent. There is no evidence of a cortical vein thrombosis associated with the left occipital lobe hemorrhage. The left occipital lobe hemorrhage and surrounding edema is unchanged. There is no new abnormality of the brain parenchyma. The ventricles, cisterns, and sulci are normal in size and configuration. There is no midline shift or extra-axial collection. Scattered mural thickening is present in the paranasal sinuses and ethmoid air cells. The bones and extracranial soft tissues are otherwise unremarkable. IMPRESSION: Diffuse irregularity, tapering, and focal narrowing of the cerebral arteries and paraclinoid right internal carotid artery. Although a majority of the abnormality may be artifactual, the findings are worrisome for an underlying vasculopathy of any cause (RCVS, vasculitis, autoimmune, etc) and further evaluation by conventional angiogram should be considered. No abnormal enhancement associated with the left occipital lobe hematoma to suggest an underlying vascular malformation. No evidence of cortical vein thrombosis or dural venous sinus thrombosis. An acute hematoma can obscure the relevant abnormality on CT angiography and should the cause of hemorrhage remain unidentified, follow-up imaging is suggested. 1-2 mm outpouching along the undersurface of the left internal carotid artery likely reflects a small infundibulum although the posterior communicating artery is not well imaged. This final report differs significantly from the preliminary resident interpretation that was communicated to the ordering provider.?The final interpretation and recommendations were discussed with Dr. Cabezas at the time of final interpretation. I have personally reviewed the images and the above interpretation and agree with the findings. Thiago Lopez MD IMG CT ORDERA BLES * POCT US PROCEDURAL GUIDANCE (08/18/2017 1:30 EDT) Anatomical Region Laterality Modality Other 08/18/2017 1:30 EDT 08/31/2017 11:41 EDT Narrative 08/31/2017 11:41 EDT [facility] Ultrasound Exam Date: 08/18/2017 Exam Type: POCT US PROCEDURAL GUIDANCE [employer] Specialist: Zhang Kamara Attending: Thiago Lopez MD Worksheet: [id number]_PeripheralIV Exam Information: ?? Ultrasound dynamic guidance was used for peripheral line insertion Exam Type: ?? Clinically Indicated Indication(s) for Exam: ?? The exam was performed with the following indications: Evaluation for a potential access site and selected vessel patency, Failed or difficult IV access Location: ?? Left ?? Specific site of peripheral line: Deep brachial vein Complications: ?? None Interpretation: ?? Successful U/S-guided peripheral line insertion Confirmatory study: ?? What confirmatory study was done?: Ultrasound (catheter visialized in lumen), IV patency confirmed by flushing without resistence or tissue infiltration IV Team Signature: ?? I reviewed and approve this document for QA submission.: Signed by Zhang Kamara on Saturday, August 26, 2017 at 6:47:00 PM Physician Signature: ?? I review and approve of the documentation above.: Signed by Pete Akers MD on Thursday, August 31, 2017 at 11:40:13 AM This exam was performed and interpreted by the [facility] ED Staff Procedure Note Pete Akers MD - 08/31/2017 [facility] - Ultrasound Exam Date: 08/18/2017 Exam Type: POCT US PROCEDURAL GUIDANCE [employer] Specialist: Zhang Kamara Attending: Thiago Lopez MD Worksheet: [id number]_PeripheralIV Exam Information: Ultrasound dynamic guidance was used for peripheral line insertion Exam Type: Clinically Indicated Indication(s) for Exam: The exam was performed with the following indications: Evaluation for a potential access site and selected vessel patency, Failed or difficult IV access Location: Left Specific site of peripheral line: Deep brachial vein Complications: None Interpretation: Successful U/S-guided peripheral line insertion Confirmatory study: What confirmatory study was done?: Ultrasound (catheter visialized in lumen), IV patency confirmed by flushing without resistence or tissue infiltration IV Team Signature: I reviewed and approve this document for QA submission.: Signed by Zhang Kamara on Saturday, August 26, 2017 at 6:47:00 PM Physician Signature: I review and approve of the documentation above.: Signed by Pete Akers MD on Thursday, August 31, 2017 at 11:40:13 AM This exam was performed and interpreted by the [facility] ED Staff Thiago Lopez MD IMG POCT US O RDERABLES * PTT (08/18/2017 0:14 EDT) Pathologist [facility] PTT 31 26 - 37 secs 08/18/2017 0:52 EDT [facility] BLOOD SPECIMEN / Unknown 08/18/2017 0:14 EDT 08/18/2017 0:33 EDT Thiago Lopez MD HEMATOLOGY & PF4 ORDERABLES [facility] [address] [place] [address] * (ABNORMAL) BASIC METABOLIC PANEL (BMP) (08/18/2017 0:14 EDT) Pathologist [facility] Sodium 139 136 - 145 mEq/L 08/18/2017 0:50 EDT [facility] Potassium 3.8 3.5 - 5.0 mEq/L 08/18/2017 0:50 EDT [facility] Chloride 107 96 - 110 mEq/L 08/18/2017 0:50 EDT [facility] CO2 23 22 - 32 mEq/L 08/18/2017 0:50 EDT [facility] BUN 8(L) 10 - 26 mg/dl 08/18/2017 0:50 EDT [facility] Creatinine 0.58 0.52 - 1.04 mg/dl 08/18/2017 0:50 EDT [facility] GFR, Calculated 117 >60 ml/min/1.7 3m2 08/18/2017 0:50 EDT [facility] Comment: eGFR calculated using CKD-EPI equation for non Americans. Multiply eGFR by 1.16 for Americans. Calcium 9.5 8.5 - 10.5 mg/dl 08/18/2017 0:50 EDT [facility] Calculated Calcium 9.6 8.5 - 10.5 mg/dl 08/18/2017 0:50 EDT [facility] Glucose, Serum 96 70 - 100 mg/dl 08/18/2017 0:50 T [facility] Fasting? Unknown 08/18/2017 0:33 EDT [facility] Blood specimen (specimen) BLOOD SPECIMEN / Unknown 08/18/2017 0:14 EDT 08/18/2017 0:33 EDT Thiago Lopez MD CHEMISTRY & B LOOD GAS ORDERABLES Performing Organization Address [facility] Co de Phone Number [facility] [address] [place] [address] * PROTIME (08/18/2017 0:14 EDT) Pro Time 12.6 10.3 - 13.4 secs 08/18/2017 0:50 EDT [facility] Comment:NOTE NEW REFERENCE R KATARZYNA OF MAY 05 2017 I.N.R. 1.1 0.9 - 1.1 Ratio 08/18/2017 0:50 [facility] Comment: Moderate Intensity Coumadin INR = 2.0-3.0 Adjustments in anticoagulant therapy dose should be based upon the INR and NOT the Pro Time. Blood specimen (specimen) BLOOD SPECIMEN / Unknown 08/18/2017 0:14 EDT 08/18/2017 0:33 EDT Thiago Lopez MD HEMATOLOGY & PF4 ORDERABLES Performing Organization Address [facility] Co de Phone Number [facility] [address] [place] [address] * (ABNORMAL) HEMAGRAM AND DIFFERENTIAL (08/18/2017 0:14 EDT) WBC 10.93 4.0 - 12.4 K/cmm 08/18/2017 0:58 [facility] RBC 4.31 3.86 - 5.04 M/cmm 08/18/2017 0:58 [facility] Hemoglobin 12.8 11.6 - 15.2 gm/dl 08/18/2017 0:58 [facility] HCT 36.7 34.9 - 44.4 % 08/18/2017 0:58 [facility] MCV 85 81 - 98 fl 08/18/2017 0:58 [facility] MCH 29.7 26.7 - 33.3 pg 08/18/2017 0:58 [facility] MCHC 34.9 32.1 - 35.9 gm/dl 08/18/2017 0:58 [facility] RDW-CV 12.5 <14.7 % 08/18/2017 0:58 [facility] RDW-SD 38.4 <50.4 fl 08/18/2017 0:58 [facility] PLT 289 141 - 377 K/cmm 08/18/2017 0:58 [facility] MPV 10.9 9.5 - 12.7 fl 08/18/2017 0:58 [facility] % Neutrophils 56.3 % 08/18/2017 0:58 [facility] % Lymphocytes 33.9 % 08/18/2017 0:58 [facility] % Monocytes 8.3 % 08/18/2017 0:58 [facility] % Eosinophils 0.6 % 08/18/2017 0:58 [facility] % Basophils 0.5 % 08/18/2017 0:58 [facility] % Immature Grans 0.4 % 08/18/2017 0:58 [facility] ABS Neutrophils 6.16 2.20 - 8.85 K/cmm 08/18/2017 0:58 [facility] ABS Lymphs 3.70(H) 1.09 - 3.30 K/cmm 08/18/2017 0:58 EDT [facility] ABS Monocytes 0.91(H) 0.1 - 0.8 K/cmm 08/18/2017 0:58 EDT [facility] ABS Eosinophils 0.07 0.03 - 0.61 K/cmm 08/18/2017 0:58 EDT [facility] ABS Basophils 0.05 0.01 - 0.11 K/cm 08/18/2017 0:58 EDT [facility] ABS Immature Grans 0.04 0 - 0.06 K/cm 08/18/2017 0:58 EDT [facility] Type of Diff: Automated 08/18/2017 0:58 EDT [facility] Blood specimen (specimen) BLOOD SPECIMEN / Unknown 08/18/2017 0:14 EDT 08/18/2017 0:33 EDT Thiago Lopez MD PACKAGES & DN A PROBE ORDERABLES Performing Organization Address City/State/[facility] Co de Phone Number [facility] [address] [place] [address] documented in this encounter Visit Diagnoses Diagnosis 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, 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) documented in this encounter Administered Medications Inactive Administered Medications - up to 3 most recent administrations Medication Order MAR Action Action Date Dose Rate Site acetaminophen (TYLENOL) solution unit dose cup 650 mg 650 mg, per ng tube, EVERY 4 HOURS PRN, Starting on Skyla 08/18/17 at 0332, Until 08/20/17 at 1646, Pain, Routine acetaminophen (TYLENOL) suppository 650 mg 650 mg, rectal, EVERY 4 HOURS PRN, Starting on Skyla 08/18/17 at 0332, Until 08/20/17 at 1646, Pain, Routine acetaminophen (TYLENOL) tablet 650 mg 650 mg, oral, EVERY 4 HOURS PRN, Starting on Skyla 08/18/17 at 0332, Until 08/20/17 at 1646, Pain, Routine Given 08/20/2017 13:14 EDT 650 mg Given 08/20/2017 7:21 EDT 650 mg Given 08/19/2017 23:46 EDT 650 mg acyclovir (ZOVIRAX) 478 mg in sodium chloride (NS) 0.9 % 100 mL IVPB 478 mg (10 mg/kg ? 47.8 kg [place] weight), intravenous, Administer over 60 Minutes, EVERY 8 HOURS, 21 doses, First dose on Tue08/19/17 at 0600, Last dose on Tue08/26/17 at 0000, Controlled antibiotic: has ID approved? Yes Given 08/20/2017 7:44 EDT 478 mg Given 08/19/2017 23:31 EDT 478 mg Given 08/19/2017 16:17 EDT 478 mg ceFAZolin (ANCEF) 2,000 mg in sodium chloride 0.9% 50 mL IVPB 2,000 mg, intravenous, Administer over 30 Minutes, Once (Without Time Specified), 1 dose, Starting on Skyla 08/18/17 at 1831, Until Skyla 08/18/17 at 2153, STAT Given 08/18/2017 21:23 EDT 2,000 mg docusate sodium (COLACE) capsule 100 mg 100 mg, oral, 2 TIMES DAILY, First dose on Skyla 08/18/17 at 0900, Until Discontinued, Routine Given 08/20/2017 8:02 EDT 100 mg Given 08/19/2017 20:19 EDT 100 mg Given 08/19/2017 8:00 EDT 100 mg enoxaparin (LOVENOX) injection 40 mg 40 mg, subcutaneous, DAILY, First dose on 08/20/17 at 0900, Until Discontinued, Routine fentaNYL citrate (PF) 50 mcg/mL injection 25-250 mcg 25-250 mcg, intravenous, ONCE PRN, 1 dose, Starting on Tue08/19/17 at 1417, Until Tue08/19/17 at 1519, Pain, radiology, Routine, Intraprocedure Given 08/19/2017 15:19 EDT 225 mcg hydrALAzine (APRESOLINE) 10 mg in sodium chloride (NS) 0.9 % 50 mL IVPB 10 mg, intravenous, Administer over 20 Minutes, EVERY 1 HOUR PRN, Starting on Skyla 08/18/17 at 0822, Until 08/20/17 at 1646, Routine levETIRAcetam (KEPPRA) tablet 500 mg 500 mg, oral, 2 TIMES DAILY, First dose on Skyla 08/18/17 at 2100, Until Discontinued, Routine Given 08/20/2017 8:02 EDT 50 0 mg Given 08/19/2017 20:19 EDT 500 mg Given 08/19/2017 8:00 EDT 500 mg LORazepam (ATIVAN) injection 0.5 mg 0.5 mg, intravenous, NOW X1, 1 dose, On Skyla 08/18/17 at 2315, Routine Given 08/18/2017 23:33 EDT 0.5 mg LORazepam (ATIVAN) injection 1 mg 1 mg, intravenous, Once (Without Time Specified), 1 dose, Starting on Skyla 08/18/17 at 2000, Until Tue08/18/17 at 2017, Routine Given 08/18/2017 20:17 EDT 1 mg magnesium oxide (MAG-OX) tablet 400 mg 400 mg, oral, DAILY, 1 dose, First dose on Skyla 08/18/17 at 0900, Routine Given 08/18/2017 8:53 EDT 400 mg midazolam (PF) (VERSED) 1 mg/mL injection 0.5-10 mg 0.5-10 mg, intravenous, ONCE PRN, 1 dose, Starting on Tue08/19/17 at 1417, Until Tue08/19/17 at 1519, Sedation, Routine, Intraprocedure Given 08/19/2017 15:19 EDT 5 mg oxyCODONE (ROXICODONE) immediate release tablet 5-15 mg 5-15 mg, oral, EVERY 4 HOURS PRN, Starting on Skyla 08/18/17 at 0332, Until 08/20/17 at 1646, Pain, discomfort, Routine Given 08/20/2017 7:21 EDT 5 mg Given 08/19/2017 23:46 EDT 5 mg Given 08/19/2017 18:57 EDT 5 mg sodium chloride 0.9 % with KCl 20 mEq/L infusion at 75 mL/hr, intravenous, CONTINUOUS, Starting on Skyla 08/18/17 at 0345, Until Tue08/18/17 at 2244, Routine Rate Documented 08/18/2017 8:00 EDT 75 mL/hr Rate Documented 08/18/2017 7:00 EDT 75 mL/hr Rate Documented 08/18/2017 6:00 EDT 75 mL/hr sodium chloride 0.9 % with KCl 20 mEq/L infusion at 75 mL/hr, intravenous, CONTINUOUS, Starting on 08/19/17 at 0000, Until 08/20/17 at 0752, Routine New Bag 08/19/2017 18:46 EDT 75 mL/hr Restarted 08/19/2017 15:45 EDT 75 mL/hr Rate Documented 08/19/2017 9:50 EDT 75 mL/hr documented in this encounter Historical Medications * This list may reflect changes made after this encounter. Medication Sig Dispensed Refills Start Date End Date ibuprofen (MOTRIN) 200 mg tablet Take 200 mg by mouth as needed. gabapentin (NEURONTIN) 300 mg capsule Take 300 mg by mouth 3 times daily as needed. added in this encounter Active and Recently Administered Medications Times are shown in EDT. Scheduled Medication Order 08/18/2017 08/19/2017 08/20/2017 acyclovir (ZOVIRAX) 478 mg in sodium chloride (NS) 0.9 % 100 mL IVPB 478 mg (10 mg/kg ? 47.8 kg [place] weight), intravenous, Administer over 60 Minutes, EVERY 8 HOURS, 21 doses, First dose on Tue08/19/17 at 0600, Last dose on Tue08/26/17 at 0000, Controlled antibiotic: has ID approved? Yes 0635 (Given - Provider: Lucila Russell RN)1617 (Given - Provider: Yasmine Child)2331 (Given - Provider: Ghanshyam Coppola RN) 0744 (Given - Provider: Yasmine Child) ceFAZolin (ANCEF) 2,000 mg in sodium chloride 0.9% 50 mL IVPB (COMPLETED) 2,000 mg, intravenous, Administer over 30 Minutes, Once (Without Time Specified), 1 dose, Starting on Skyla 08/18/17 at 1831, Until Skyla 08/18/17 at 2153, STAT 2123 (Given - Provider: Lucila Russell RN) docusate sodium (COLACE) capsule 100 mg 100 mg, oral, 2 TIMES DAILY, First dose on Skyla 08/18/17 at 0900, Until Discontinued, Routine 0851 (Not Given - Provider: Peri Richardson RN - Reason: Patient/family refused)2016 (Given - Provider: Lucila Russell RN) 0800 (Given - Provider: Yasmine Child)2019 (Given - Provider: Ghanshyam Coppola, YANDEL) 0802 (Given - Provider: Yasmine Child) enoxaparin (LOVENOX) injection 40 mg 40 mg, subcutaneous, DAILY, First dose on 08/20/17 at 0900, Until Discontinued, Routine 1004 (Hold - Provider: Yasmine Child - Reason: Patient/family refused) levETIRAcetam (KEPPRA) tablet 500 mg (CANCELED) 500 mg, oral, 2 TIMES DAILY, First dose on Skyla 08/18/17 at 2100, Until Discontinued, Routine 2017 (Given - Provider: Lucila Russell RN) 0800 (Given - Provider: Yasmine Child)2018 (Given - Provider: Ghanshyam Coppola RN) 08 (Given - Provider: Yasmine Child) LORazepam (ATIVAN) injection 0.5 mg (COMPLETED) 0.5 mg, intravenous, NOW X1, 1 dose, On Skyla 08/18/17 at 2315, Routine 2333 (Given - Provider: Lucila Russell, YANDEL) LORazepam (ATIVAN) injection 1 mg (COMPLETED) 1 mg, intravenous, Once (Without Time Specified), 1 dose, Starting on Skyla 08/18/17 at 2000, Until Skyla 08/18/17 at 2017, Routine 2017 (Given - Provider: Lucila Russell, YANDEL) magnesium oxide (MAG-OX) tablet 400 mg (COMPLETED) 400 mg, oral, DAILY, 1 dose, First dose on Skyla 08/18/17 at 0900, Routine 0853 (Given - Provider: Peri Richardson RN) Continuous Medication Order 08/18/2017 08/19/2017 08/20/2017 sodium chloride 0.9 % with KCl 20 mEq/L infusion (CANCELED) at 75 mL/hr, intravenous, CONTINUOUS, Starting on Skyla 08/18/17 at 0345, Until Skyla 08/18/17 at 2244, Routine 0454 (New Bag - Provider: Carol Ames RN)0500 (Rate Documented - Provider: Carol Ames RN)0600 (Rate Documented - Provider: Carol Ames RN)0700 (Rate Documented - Provider: Carol Ames RN)0800 (Rate Documented - Provider: Peri Richardson, YANDEL)0845 (Paused - Provider: Peri Richardson, YANDEL - Comment: for oob) sodium chloride 0.9 % with KCl 20 mEq/L infusion (CANCELED) at 75 mL/hr, intravenous, CONTINUOUS, Starting on 08/19/17 at 0000, Until 08/20/17 at 0752, Routine 2334 (New Bag - Provider: Lucila Russell, RN) 0950 (Rate Documented - Provider: Yasmine Child)1350 (Paused - Provider: Jonah Schaefer, RN)1545 (Restarted - Provider: Jonah Schaefer, RN)1656 (Paused - Provider: Yasmine Child - Comment: Loss of IV access)1750 (IV Resume - Provider: Yasmine Child)1846 (New Bag - Provider: Yasmine Child) PRN Medication Order 08/18/2017 08/19/2017 08/20/2017 acetaminophen (TYLENOL) solution unit dose cup 650 mg(Linked Group 1) 650 mg, per ng tube, EVERY 4 HOURS PRN, Starting on Skyla 08/18/17 at 0332, Until 08/20/17 at 1646, Pain, Routine 0446 (See Alternative - Provider: Carol Ames RN) 1857 (See Alternative - Provider: Yasmine Child)2346 (See Alternative - Provider: Ghanshyam Coppola, YANDEL) 0721 (See Alternative - Provider: Yasmine Child)1314 (See Alternative - Provider: Yasmine Child) acetaminophen (TYLENOL) suppository 650 mg(Linked Group 1) 650 mg, rectal, EVERY 4 HOURS PRN, Starting on Skyla 08/18/17 at 0332, Until 08/20/17 at 1646, Pain, Routine 0446 (See Alternative - Provider: Carol Ames RN) 1857 (See Alternative - Provider: Yasmine Child)2346 (See Alternative - Provider: Ghanshyam Coppola, YANDEL) 0721 (See Alternative - Provider: Yasmine Child)1314 (See Alternative - Provider: Yasmine Child) acetaminophen (TYLENOL) tablet 650 mg(Linked Group 1) 650 mg, oral, EVERY 4 HOURS PRN, Starting on Skyla 08/18/17 at 0332, Until 08/20/17 at 1646, Pain, Routine 0446 (Given - Provider: Carol Ames, YANDEL) 1857 (Given - Provider: Yasmine Child)2346 (Given - Provider: Ghanshyam Coppola RN) 0721 (Given - Provider: Yasmine Child)1314 (Given - Provider: Yasmine Child) bisacodyl (DULCOLAX) suppository 10 mg 10 mg, rectal, EVERY 48 HOURS PRN, Starting on 08/20/17 at 0000, Until 08/20/17 at 1646, Constipation, Routine fentaNYL citrate (PF) 50 mcg/mL injection 25-250 mcg (COMPLETED) 25-250 mcg, intravenous, ONCE PRN, 1 dose, Starting on 08/19/17 at 1417, Until Tue08/19/17 at 1519, Pain, radiology, Routine, Intraprocedure 151 (Given - Provider: Jonah Schaefer RN) gabapentin (NEURONTIN) capsule 300 mg 300 mg, oral, 3 TIMES DAILY PRN, Starting on Skyla 08/18/17 at 0331, Until 08/20/17 at 1646, Pain, Routine hydrALAzine (APRESOLINE) 10 mg in sodium chloride (NS) 0.9 % 50 mL IVPB 10 mg, intravenous, Administer over 20 Minutes, EVERY 1 HOUR PRN, Starting on Skyla 08/18/17 at 0822, Until 08/20/17 at 1646, Routine midazolam (PF) (VERSED) 1 mg/mL injection 0.5-10 mg (COMPLETED) 0.5-10 mg, intravenous, ONCE PRN, 1 dose, Starting on 08/19/17 at 1417, Until Tue08/19/17 at 1519, Sedation, Routine, Intraprocedure 151 (Given - Provider: Jonah Schaefer RN) ondansetron (PF) (ZOFRAN) injection 2-4 mg 2-4 mg, intravenous, EVERY 4 HOURS PRN, Starting on Skyla 08/18/17 at 0332, Until 5/19/18 at 1646, Nausea, Routine oxyCODONE (ROXICODONE) immediate release tablet 5-15 mg 5-15 mg, oral, EVERY 4 HOURS PRN, Starting on Skyla 08/18/17 at 0332, Until 08/20/17 at 1646, Pain, discomfort, Routine 2332 (Given - Provider: Lucila Russell RN) 0636 (Given - Provider: Lucila Russell RN)1857 (Given - Provider: Yasmine Child)2346 (Given - Provider: Ghanshyam Coppola RN) 0721 (Given - Provider: Yasmine Child) senna (SENOKOT) tablet 1-2 Tab 1-2 Tablet, oral, 2 TIMES DAILY PRN, Starting on 08/20/17 at 0000, Until 08/20/17 at 1646, Constipation, Routine Linked Groups Order Group 1: acetaminophen (TYLENOL) tablet 650 mgJump to med 650 mg, oral, EVERY 4 HOURS PRN, Starting on Skyla 08/18/17 at 0332, Until 08/20/17 at 1646, Pain, Routine Or acetaminophen (TYLENOL) solution unit dose cup 650 mgJump to med 650 mg, per ng tube, EVERY 4 HOURS PRN, Starting on Skyla 08/18/17 at 0332, Until 08/20/17 at 1646, Pain, Routine Or acetaminophen (TYLENOL) suppository 650 mgJump to med 650 mg, rectal, EVERY 4 HOURS PRN, Starting on Skyla 08/18/17 at 0332, Until 08/20/17 at 1646, Pain, Routine documented in this encounter Orders Medications Ordered That Sly ht Not Have Been Administered Count Last Ordered Date First Ordered Date enoxaparin (LOVENOX) injection 40 mg 1 08/02 acetaminophen (TYLENOL) solu tion unit dose cup 650 mg 1 08/18/2017 acetaminophen (TYLENOL) suppository 650 mg 08/18/2017 bisacodyl (DULCOLAX) suppository 10 mg fentaNYL citrate (PF) 50 mcg /mL injection 25 mcg 1 08/18/2017 gabapentin (NEURONTIN) capsule 300 mg hydrALAzine (APRESOLINE) 10 mg in sodium chloride (NS) 0.9 % 50 mL IVPB 1 08/18/2017 hydrALAzine (APRESOLINE) injection 10 mg 1 08/18/2017 iohexol in sterile water (jacob ttle) 3.2% oral solution 1 08/18/2017 ondansetron (PF) (ZOFRAN) injection 2-4 mg 1 08/18/2017 senna (SENOKOT) tablet 1-2 Tab 1 08/18/2017 Nursing Count Last Ordered Date First Orde red Date ACTIVITY INSTRUCTIONS 1 08/20/2017 DRIVING INSTRUCTIONS 1 08/20/2017 LIFTING INSTRUCTIONS 1 08/20/2017 CONTRAINDICATION TO ANTICOAG ULATION THERAPY 1 08/18/2017 IV Count Last Ordered Date First Orde red Date IV REQUEST 1 08/19/2017 Admission Count Last Ordered Date First Orde red Date ED BED REQUEST 1 08/18/2017 STATUS: INPATIENT ACUTE ADMISSION 1 018 Transfer Count Last Ordered Date First Orde red Date NOTIFY PPS OF DISCHARGE COMPLETE 1 08/21/19 18 PPS NOTIFICATION OF PATIENT ARRIVAL ON UNIT 2 08/18/2017 PPS NOTIFICATION OF SENDING PATIENT OFF THE UNIT 2 08/18/2017 TRANSFER PATIENT 1 08/18/2017 UR PATIENT STATUS CHANGE 1 08/18/2017 Discharge Count Last Ordered Date First Orde red Date DISCHARGE PATIENT 1 08/20/2017 Legal Count Last Ordered Date First Orde red Date MISCELLANEOUS DISCHARGE INSTRUCTIONS 2 08/02 documented in this encounter Care Teams Certified Fire Investigator Relationship Specialty Start Date End Date Odalys Macias MD [address] [place] [address] PCP - General 08/17/17 documented as of this encounter
--- OUTSIDE RECORDS SUMMARY | 2023-12-16 01:01 | XMS_ITS | Encounter Summary ---
Author Organization [facility] Address [address] [place] [address] Care Team Providers Care Sewing Room Supervisor Name Role Phone Odalys Macias MD Primary Care Provider [phone] Encounter Details Date Type Department Care Team (Latest Contact Info) Description 09/20/2017 7:22 EDT - 09/20/2017 23:59 EDT Hospital Encounter [address] [address] Gisele Mccrary MD [address] [place] [id number] Discharge Disposition: Auto Discharge Social History Tobacco [...] on filedocumented in this encounter Care Teams Sewing Room Supervisor Relationship Specialty Start Date End Date Odalys Macias MD [address] [place] [id number] PCP - General 08/17/17 documented as of this encounter
--- OUTSIDE RECORDS SUMMARY | 2023-12-16 01:01 | XMS_ITS | Encounter Summary ---
Author Organization [facility] Address [address] [place] [id number] Care Team Providers Care Patent Engineer Name Role Phone Unknown, Provider Primary Care Provider [phone] Encounter Details Date Type Department Care Team (Late st Contact Info) Description 03/25/2009 Orders Only [facility] ([facility]) [address] [place], [place] [id number] Wm Garcia MD [address] [place] [address] Social History Tobacco Use Types Packs/Day Years Used Date Smoking Tobacco: Never Assessed Sex and Gender Information Value Date Recorded Sex Assigned at Not on file Gender Identity Not on file Sexual Orientation Not on file documented as of this encounter Plan of Treatment Not on file documented as of this encounter Procedures Procedure Name Priority Date/Time Associated Diagnosis Comments CYTOPATHOLOGY Routine 03/25/2009 0:00 EST documented in this encounter Results * CYTOPATHOLOGY (03/25/2009 0:00 EST) Pathology Report: CYTOPATHOLOGY REPORT ? Reports generated via electronic interface contain original data; ? however they are lacking the format of the original report. ? Caution should be taken when reading/interpreti ng unformatted reports. ? Name: ? KELLI DELEON ? Accession #: ? [id number] ? : ? 1980 (Age: 28) ??F ?Collect Date: ? 03/25/2009 ? Location: ? [facility] ? Receive Date: ? 03/31/2009 ? Provider: ?WM GARCIA MD ? Copy to: ? Specimen/Source: ?Pap Test, Cervix/Endocervix, ThinPrep Imaging System ? with manual evaluation ? Last Menstrual Period: ? Hormonal/Contracep tive Status: ? Intrauterine device: + ? Other: ? HPVA - HPV testing requested if ASC-US on the current ThinPrep Pap test. ? SPECIMEN ADEQUACY ? Unsatisfactory for Evaluation, ? - insufficient numbers of squamous epithelial cells (less than 10% of expected ?? cellularity) ? GENERAL CATEGORIZATION ? Specimen processed and examined, but unsatisfactory for evaluation of ? epithelial abnormality. ? Recommend repeat Pap test or further follow up, as clinically indicated. ? Document reviewed and electronically signed by: ? Lenora Eduard, CT(ASCP) ? Report Date: ??04/01/2009 15:59 ? End of Report ? [facility] 03/25/2009 03/31/2009 Wm Garcia MD PATHOLOGY ORDERABLES [facility] [address] [place] [address] documented in this encounter Visit Diagnoses Not on filedocumented in this encounter Care Teams Patent Engineer Relationship Specialty Start Date End Date Unknown, Provider, PCP - General 03/31/09 08/16/17 documented as of this encounter
--- OUTSIDE RECORDS SUMMARY | 2023-12-16 01:01 | XMS_ITS | Encounter Summary ---
Author Organization [facility] Address [address] [place] [address] Care Team Providers Care Boiler Helper Name Role Phone Odalys Macias MD Primary Care Provider [phone] Reason for Visit * Reason Onset Date Comments Follow-up 08/23/2017 questions about surgery Encounter Details Date Type Department Care Team (Late st Contact Info) Description 08/23/2017 Telephone [facility] Neurosurgery - Main [place] [address] [place] [address] Gisele Mccrary MD [address] [place] [address] Follow-up (questions about surgery ) Social History Tobacco Use Types Packs/Day Years [...] No 08/18/2017 documented as of this encounter Miscellaneous Notes * Telephone Encounter - Julia Marrufo - 08/30/2017 0808 EDT DIAMOND Snyder confirmed appointment details with patient on 08/26. * Telephone Encounter - Marisa Edward PA-C - 08/23/2017 1005 EDT Returned call to Paulette. She wanted to update that the rash she reported yesterday was also on her arm but she forgot to tell us. She has been taking benadryl and finds that it may be a bit improved. She recalled that she was given an antibiotic in the past, for a diagnosis of mastitis, that she was allergic to. Requested she try and find out what that antibiotic was so we may add it to her allergy list. She was given cefazolin while in the hospital, ? Relationship to the antiobiotic she did not tolerate in the past. She is having some difficulty with anxiety. Work is high stress. Encouraged her not to return to work until after her updated head CT on 09/21. She does not currently have a follow up appointment scheduled yet, will f/u with service on who that appointment should be with. She has many questions regarding the etiology and ramifications of this event. * Telephone Encounter - Jami Maya - 08/23/2017 0853 EDT Patient requesting a nurse call her Back She has some questions regarding her surgery documented in this encounter Plan of Treatment Not on file documented as of this encounter Visit Diagnoses Not on filedocumented in this encounter Care Teams Boiler Helper Relationship Specialty Start Date End Date Odalys Macias MD [address] [place] [address] PCP - General 08/17/17 documented as of this encounter
--- OUTSIDE RECORDS SUMMARY | 2023-12-16 01:01 | XMS_ITS | Encounter Summary ---
Author Organization [facility] Address [address] [place] [address] Care Team Providers Care Med Specialist Name Role Phone Odalys Macias MD Primary Care Provider [phone] Reason for Visit * Reason Onset Date Comments Appointment Related 09/19/2017 Encounter Details Date Type Department Care Team (Late st Contact Info) Description 09/19/2017 Telephone [facility] Neurosurgery - Main [address] [address] Gisele Mccrary MD [address] [place] [address] Appointment Related Social History Tobacco [...] * Telephone Encounter - Lashon Garcia - 09/19/2017 1017 EDT Confirmed for patient with the following appointment details: Date:09/20/2017 Arrival time:7:[address] Appt time:9am Provider:Dr. Mccrary Location:3rd floor registration then EP5 Advised patient to contact our office with any questions. The phone number and directions to the clinic were provided. documented in this encounter Plan of Treatment Not on file documented as of this encounter Visit Diagnoses Not on filedocumented in this encounter Care Teams Med Specialist Relationship Specialty Start Date End Date Odalys Macias MD [address] [place] [phone] PCP - General 08/17/17 documented as of this encounter
--- OUTSIDE RECORDS SUMMARY | 2023-12-16 01:01 | XMS_ITS | Encounter Summary ---
Author Organization [facility] Address [address] [place] [address] Care Team Providers Care Pastrycook'S Assistant Name Role Phone Unknown, Provider Primary Care Provider [phone] Encounter Details Date Type Department Care Team (Late st Contact Info) Description 10/31/2006 Results Only [facility] - Maple conversion [address] [place] [address] Wm Garcia MD [address] [place] [address] Social History Tobacco Use Types Packs/Day Years Used Date Smoking Tobacco: Never Assessed Sex and Gender Information Value Date Recorded Sex Assigned at Not on file Gender Identity Not on file Sexual Orientation Not on file documented as of this encounter Plan of Treatment Not on file documented as of this encounter Procedures Procedure Name Priority Date/Time Associated Diagnosis Comments CYTOPATHOLOGY Routine 10/31/2006 0:00 EDT documented in this encounter Results * CYTOPATHOLOGY (10/31/2006 0:00 EDT) Pathology Report: CYTOPATHOLOGY REPORT Reports generated via electronic interface contain original data; however they are lacking the format of the original report. Caution should be taken when reading/interpreti ng unformatted reports. Name: ? KELLI DELEON ? Accession #: ? [id number] : ? 1980 (Age: 26) ??F ?Collect Date: ? 10/31/2006 Location: ? [facility] ? Receive Date: ? 11/02/2006 Provider: ?WM GARCIA MD Copy to: ? Specimen/Source: ?ThinPrep Pap Test, Cervix/Endocervix, processed on [employer] ThinPrep Imaging System, with manual evaluation Last Menstrual Period: ? 10/11/06 Other: ? HPVA - HPV testing requested if ASC-US on the current ThinPrep Pap test. ? SPECIMEN ADEQUACY ? Satisfactory for Evaluation - transformation zone component present GENERAL CATEGORIZATION ? Negative for Intraepithelial Lesion or Malignancy ? Document reviewed and electronically signed by: ? MAGGY Chamberlain(ASCP) ? Report Date: ??11/07/2006 08:57 End of Report [facility] 10/31/2006 11/02/2006 Wm Garcia MD PATHOLOGY ORDERABLES [facility] [address] [place] [address] documented in this encounter Visit Diagnoses Not on filedocumented in this encounter Care Teams Pastrycook'S Assistant Relationship Specialty Start Date End Date Unknown, Provider, PCP - General 03/31/09 08/16/17 documented as of this encounter
--- OUTSIDE RECORDS SUMMARY | 2023-12-16 01:01 | XMS_ITS | Encounter Summary ---
Author Organization [facility] Address [address] [place] [address] Care Team Providers Care Coal Passer Name Role Phone Unknown, Provider Primary Care Provider [phone] Encounter Details Date Type Department Care Team (Late st Contact Info) Description 07/08/2014 Results Only [facility] Laboratory Services - [facility] ([facility] [address] [place], [place] [id number] Wm Garcia MD [address] [place] [address] Social History Tobacco Use Types Packs/Day Years [...] Diagnosis Comments PAP TEST- RESULT ONLY Routine 07/08/2014 0:00 EDT documented in this encounter Results * PAP TEST- RESULT ONLY (07/08/2014 0:00 EDT) Pathology Report: CYTOPATHOLOGY REPORT Reports generated via electronic interface contain original data; however they are lacking the format of the original report. Caution should be taken when reading/interpreti ng unformatted reports. Name: ? DELEON KELLI Steven ? Accession #: ? [id number] ? : ? 1980 (Age: 34) ??F ?Collect Date: ? 07/08/2014 ? Location: ? [facility] ? Receive Date: ? 07/10/2014 ? Provider: WM GARCIA MD Copy to: CHON MCCARTHY MD ? Final Report SPECIMEN ADEQUACY ? Satisfactory for Evaluation - transformation zone component present GENERAL CATEGORIZATION ? Negative for Intraepithelial Lesion or Malignancy ?? Specimen/Source: ??Pap Test, Cervix/Endocervix, ThinPrep Imaging System with manual evaluation Document reviewed and electronically signed by: ? Regi Felder, CT(ASCP) ? Report ??Date: 07/18/2014 10:40 HPV with Pap Test ? Date Ordered: ? 07/18/2014 ? Status: ?? Signed Out ?Date Complete: ? 07/22/2014 ? By: ??System Interface ? Date Reported: ? 07/22/2014 ? Interpretation RESULT: Negative for HPV. No E6 or E7 mRNA is detected from HPV types 16,18,31,33,35, 39,45,51,52,56,58, 59,66, and 68 by heat reader mediated amplification. Comments Document reviewed and electronically signed by: ? System Interface ? Report date: 07/22/2014 By the signature above, the attending physician certifies that he/she has personally conducted a gross and/or microscopic examination of the described specimens and rendered or confirmed the above diagnosis. End of Report [facility] 07/08/2014 07/10/2014 Wm Garcia MD PATHOLOGY ORDERABLES [facility] [address] [place] [address] documented in this encounter Visit Diagnoses Not on filedocumented in this encounter Care Teams Coal Passer Relationship Specialty Start Date End Date Unknown, Provider, PCP - General 03/31/09 08/16/17 documented as of this encounter
--- OUTSIDE RECORDS SUMMARY | 2023-12-16 01:01 | XMS_ITS | Encounter Summary ---
Author Organization [facility] Address [facility] [place] [address] Care Team Providers Care Front Desk Clerk Name Role Phone Unavailable Primary Care Provider Unavailabl e Encounter Details Date Type Department Care Team (Latest Contact Info) Description 08/17/2017 - 08/17/2017 12:04 AM EDT Hospital Encounter [place] [address] Rohith Broderick MD [facility] [place] [address] Discharge Disposition: Home Social History Tobacco Use [...] Associated Diagnosis Comments FILM LIBRARY STORAGE ONLY MR HEAD Routine 08/17/2017 12:00 AM EDT documented in this encounter Results * Film Library- Storage Only MR Head (08/17/2017 12:00 AM EDT) Narrative COOKIE - 08/17/2017 7:04 PM EDT This exam is for storage only and is auto-finalizing. Rohith Broderick MD IMG FILM LIBRARY ORD ERABLES [place], [place] documented in this encounter Visit Diagnoses Not on filedocumented in this encounter
--- OUTSIDE RECORDS SUMMARY | 2023-12-16 01:01 | XMS_ITS | Encounter Summary ---
Author Organization [facility] Address [address] [place] [address] Care Team Providers Care Locomotive Pipe Fitter Name Role Phone Odalys Macias MD Primary Care Provider Reason for Visit * Reason Onset Date Comments Follow-up 09/21/2017 Encounter Details Date Type Department Care Team (Late st Contact Info) Description 09/21/2017 Telephone [facility] Neurosurgery - Main [place] [address] [place] [address] Gisele Mccrary MD [address] [place] [address] Follow-up Social History Tobacco Use Types Packs/Day Years [...] encounter Miscellaneous Notes * Telephone Encounter - Lillian Rod - 09/21/2017 1000 EDT She would like to know if she is able to begin consuming alcohol and also if she is able to start exercising. documented in this encounter Plan of Treatment Not on file documented as of this encounter Visit Diagnoses Not on filedocumented in this encounter Care Teams Locomotive Pipe Fitter Relationship Specialty Start Date End Date Odalys Macias MD [address] [place] [address] PCP - General 08/17/17 documented as of this encounter
--- OUTSIDE RECORDS SUMMARY | 2023-12-16 01:01 | XMS_ITS | Encounter Summary ---
Author Organization [facility] Address [address] [place] [address] Care Team Providers Care Filtering Machine Tender Name Role Phone Odalys Macias MD Primary Care Provider Reason for Visit * Reason Onset Date Comments Hospital Discharge Follow Up 08/22/2017 chirag hartmann Encounter Details Date Type Department Care Team (Late st Contact Info) Description 08/22/[address] [facility] Neurosurgery - Main [place] [address] [place] [address] Gisele Mccrary MD [address] [place] [address] Hospital Discharge Follow Up (questions) Social History Tobacco Use Types Packs/Day Years [...] * Telephone Encounter - Julia Marrufo - 08/26/2017 1418 EDT Needs to see Dr. Mccrary. See encounter from 08/23. * Telephone Encounter - Ana Bowers PA - 08/22/2017 0932 EDT Spoke with patient who was questioning timing of return to work and driving. Advised that she wait until her 1 month follow up and head CT prior to going back to work or driving and she was in agreement. She also reported a rash over her lower abdomen and thighs. She is only taking tylenol Q4 hours andno other medications. May be related to being in the hospital in bed and she will continue to monitor it and call if it worsens. Suggested trying benadryl if needed. Head CT and follow up appointment in 1 month. Our office will call her to set up the date/time. * Telephone Encounter - Nina Shafer V. - 08/22/2017 0837 EDT Reason for Call: Hospital Discharge Follow Up (questions) Summary/Symptoms: Patient has post discharge questions for the nurse Nina Shafer 08/22/2017 8:37 documented in this encounter Plan of Treatment Not on file documented as of this encounter Visit Diagnoses Not on filedocumented in this encounter Care Teams Filtering Machine Tender Relationship Specialty Start Date End Date Odalys Macias MD [address] [place] [id number] PCP - General 08/17/17 documented as of this encounter
--- OUTSIDE RECORDS SUMMARY | 2023-12-16 01:01 | XMS_ITS | Encounter Summary ---
Author Organization [facility] Address [address] [place] [address] Care Team Providers Care Jeep Mechanic Name Role Phone Odalys Macias MD Primary Care Provider [phone] Reason for Visit * Reason Onset Date Comments Update 08/30/2017 Encounter Details Date Type Department Care Team (Late st Contact Info) Description 08/30/2017 Telephone [facility] Neurosurgery - Main [place] [address] [place] [address] Kamila Guzman, YANDEL Update Social History Tobacco Use Types Packs/Day Years [...] encounter Miscellaneous Notes * Telephone Encounter - Kamila Guzman RN - 08/30/2017 1211 EDT Patient phone to update Neurosurgery regarding sensitivity to cold foods and liquids as she had shingles in her mouth. She is scheduled to follow up with Dr. Mccrary on 09/20. documented in this encounter Plan of Treatment Not on file documented as of this encounter Visit Diagnoses Not on filedocumented in this encounter Care Teams Jeep Mechanic Relationship Specialty Start Date End Date Odalys Macias MD [address] [place] [address] PCP - General 08/17/17 documented as of this encounter
--- OUTSIDE RECORDS SUMMARY | 2023-12-16 01:01 | XMS_ITS | Encounter Summary ---
Author Organization [facility] Address [address] [place] [address] Care Team Providers Care Dining Service Inspector Name Role Phone Unknown, Provider Primary Care Provider [phone] Encounter Details Date Type Department Care Team (Late st Contact Info) Description 10/20/2004 Results Only [facility] - Maple conversion [address] [place] [address] Emmy Dao, [address] [address] Social History Tobacco Use Types [...] Priority Date/Time Associated Diagnosis Comments CYTOPATHOLOGY Routine 10/20/2004 0:00 EDT documented in this encounter Results * CYTOPATHOLOGY (10/20/2004 0:00 EDT) Pathology Report: CYTOPATHOLOGY REPORT Reports generated via electronic interface contain original data; however they are lacking the format of the original report. Caution should be taken when reading/interpreti ng unformatted reports. Name: ? KELLI DELEON ? Accession #: ? [id number] : ? 1980 (Age: 24) ??F ?Collect Date: ? 10/20/2004 Location: ? [facility] ? Receive Date: ? 10/21/2004 Provider: ?EMMY DAO ACCOUNT SPECIALIST Copy to: ? Specimen/Source: ?ThinPrep Pap Test, Cervix/Endocervix, processed on [employer] ThinPrep Imaging System, with manual evaluation Last Menstrual Period: ? 10/11/04 Hormonal/Contracep tive Status: ? Oral contraceptives Other: ? HPVA - HPV testing requested if ASC-US on the current ThinPrep Pap test. ? SPECIMEN ADEQUACY ? Satisfactory for Evaluation - transformation zone component present GENERAL CATEGORIZATION ? Negative for Intraepithelial Lesion or Malignancy INTERPRETATION ? Reactive cellular changes associated with inflammation present (includes repair). ? Document reviewed and electronically signed by: ? CHRISTOPHER HICKEY MD ? Report Date: ??10/30/2004 17:34 End of Report [facility] 10/20/2004 10/21/2004 Emmy Dao ACCOUNT SPECIALIST PATHOLOGY ORDERABLES [facility] [address] [place] [address] documented in this encounter Visit Diagnoses Not on filedocumented in this encounter Care Teams Dining Service Inspector Relationship Specialty Start Date End Date Unknown, Provider, PCP - General 03/31/09 08/16/17 documented as of this encounter
--- OUTSIDE RECORDS SUMMARY | 2023-12-16 01:01 | XMS_ITS | Encounter Summary ---
Author Organization [facility] Address [address] [place] [address] Care Team Providers Care Upkeep Mechanic Name Role Phone Odalys Macias MD Primary Care Provider [phone] Reason for Visit * Reason Onset Date Comments IR Procedure Follow-up 08/25/2017 Encounter Details Date Type Department Care Team (Late st Contact Info) Description 08/25/2017 Telephone [facility] Interventional Radiology - [facility] [address] [place] [address] Elham Beckwith, RN [address] [place] [address] IR Procedure Follow-up Social History Tobacco Use Types Packs/Day [...] encounter Miscellaneous Notes * Telephone Encounter - Elham Beckwith RN - 08/25/2017 6939 EDT Paulette had a cerebral angiogram is an inpatient last week. She called because she still has tenderness at the arteriotomy site. She states that the site looks fine has a small amount of resolving ecchymosis otherwise is unremarkable. It is tender to palpation and uncomfortable for her to lie in her stomach, she also perceives a small lump there. Discussed with her that she did have a minx closure device therefore does have a very small lump to palpation that is expected and will absorb over time. She denies any swelling of that area. Reviewed that her tenderness is likely related to the resolving ecchymosis and should decrease over the next several days. She states that is has gotten better each day so far. If she develops swelling or increased tenderness she noticed to call us back. documented in this encounter Plan of Treatment Not on file documented as of this encounter Visit Diagnoses Not on filedocumented in this encounter Care Teams Upkeep Mechanic Relationship Specialty Start Date End Date Odalys Macias MD [address] [place] [phone] PCP - General 08/17/17 documented as of this encounter
--- OUTSIDE RECORDS SUMMARY | 2023-12-16 01:01 | XMS_ITS | Encounter Summary ---
Author Organization [facility] Address [address] [place] [address] Care Team Providers Care Delivery Coordinator Name Role Phone Odalys Macias MD Primary Care Provider [phone] Reason for Visit * Reason Onset Date Comments Paperwork request 09/13/2017 Encounter Details Date Type Department Care Team (Late st Contact Info) Description 09/13/2017 Telephone [facility] Neurosurgery - Main [place] [address] [place] [address] Gisele Mccrary MD [address] [place] [address] Paperwork request Social History Tobacco [...] * Telephone Encounter - Lashon Haney - 09/13/2017 1345 EDT Paperwork completed and faxed back to [facility]. documented in this encounter Plan of Treatment Not on file documented as of this encounter Visit Diagnoses Not on filedocumented in this encounter Care Teams Delivery Coordinator Relationship Specialty Start Date End Date Odalys Macias MD [address] [place] [address] PCP - General 08/17/17 documented as of this encounter
--- OUTSIDE RECORDS SUMMARY | 2023-12-16 01:01 | XMS_ITS | Encounter Summary ---
Author Organization [facility] Address [address] [place] [address] Care Team Providers Care Curriculum Advisory Teacher Name Role Phone Unknown, Provider Primary Care Provider [phone] Encounter Details Date Type Department Care Team (Late st Contact Info) Description 09/29/2011 Results Only [facility] [phone] Kathrin Garcia, GUIDE RAIL CLEANER [address] [facility] [address] Social History Tobacco Use Types Packs/Day Years [...] Diagnosis Comments PAP TEST- RESULT ONLY Routine 09/29/2011 0:00 EDT documented in this encounter Results * PAP TEST- RESULT ONLY (09/29/2011 0:00 EDT) Pathology Report: CYTOPATHOLOGY REPORT Reports generated via electronic interface contain original data; however they are lacking the format of the original report. Caution should be taken when reading/interpreti ng unformatted reports. Name: ? KELLI DELEON ? Accession #: ? [id number] : ? 1980 (Age: 31) ??F ?Collect Date: ? 09/29/2011 Location: ? [facility] ? Receive Date: ? 09/30/2011 Provider: ?KATHRIN GARCIA APRN Copy to: ? Specimen/Source: ?Pap Test, Cervix/Endocervix, ThinPrep Imaging System with manual evaluation Last Menstrual Period: ? SPECIMEN ADEQUACY ? Satisfactory for Evaluation - transformation zone component present GENERAL CATEGORIZATION ? Negative for Intraepithelial Lesion or Malignancy ? Document reviewed and electronically signed by: ? Neville Velez, MAGGY(ASCP) ? Report Date: ??10/04/2011 11:00 End of Report [facility] 09/29/2011 09/30/2011 Kathrin Garcia APRN PATHOLOGY ORDERABLES [facility] [address] [place] [address] documented in this encounter Visit Diagnoses Not on filedocumented in this encounter Care Teams Curriculum Advisory Teacher Relationship Specialty Start Date End Date Unknown, Provider, PCP - General 03/31/09 08/16/17 documented as of this encounter
--- OUTSIDE RECORDS SUMMARY | 2023-12-16 01:01 | XMS_ITS | Encounter Summary ---
Author Organization [facility] Address [address] [place] [address] Care Team Providers Care Rotary Adjuster Name Role Phone Odalys Macias MD Primary Care Provider [phone] Reason for Visit * Reason Onset Date Comments Medication Questions 08/23/2017 Encounter Details Date Type Department Care Team (Late st Contact Info) Description 08/23/2017 Telephone [facility] Neurosurgery - [facility] [address] [place] [address] Marisa Edward PA-C [address] [facility] [address] [place] [address] Medication Questions Social History Tobacco Use Types Packs/Day Years [...] encounter Miscellaneous Notes * Telephone Encounter - Marisa Edward PA-C - 08/23/2017 1602 EDT Noted and added to her allergy list. * Telephone Encounter - Anjelica Villeda - 08/23/2017 1549 EDT Called to let us know the name of the medication she is allergic to. It is keflex. She can be reached at [phone]. documented in this encounter Plan of Treatment Not on file documented as of this encounter Visit Diagnoses Not on filedocumented in this encounter Care Teams Rotary Adjuster Relationship Specialty Start Date End Date Odalys Macias MD [address] [place] [address] PCP - General 08/17/17 documented as of this encounter
--- OUTSIDE RECORDS SUMMARY | 2023-12-16 01:01 | XMS_ITS | Encounter Summary ---
Author Organization [facility] Address [address] [place] [address] Care Team Providers Care It Operations Specialist Name Role Phone Odalys Macias MD Primary Care Provider [phone] Reason for Visit * Reason Onset Date Comments Other 09/15/2017 Encounter Details Date Type Department Care Team (Late st Contact Info) Description 09/15/2017 Telephone [facility] Neurosurgery - Main [place] [address] [place] [address] Gisele Mccrary MD [address] [place] [address] Other Social History Tobacco Use Types Packs/Day Years [...] Telephone Encounter - Kamila Guzman RN - 09/15/2017 1012 EDT Patient questioned if she may take a 3 hour car trip. Advised she may do so, but may notice some fatigue. All questions were answered. * Telephone Encounter - Jami Maya - 09/15/2017 0808 EDT Please call patient Patients decided to surprise her this morning With a trip for this evening Patient wants antonia sure it will be OK documented in this encounter Plan of Treatment Not on file documented as of this encounter Visit Diagnoses Not on filedocumented in this encounter Care Teams It Operations Specialist Relationship Specialty Start Date End Date Odalys Macias MD [address] [place] [address] PCP - General 08/17/17 documented as of this encounter
--- OUTSIDE RECORDS SUMMARY | 2023-12-16 01:01 | XMS_ITS | Encounter Summary ---
Author Organization [facility] Address [facility] [place] [address] Care Team Providers Care Fork Truck Operator Name Role Phone Unavailable Primary Care Provider Unavailabl e Encounter Details Date Type Department Care Team (Late st Contact Info) Description 08/17/2017 [place] [phone] Prabhjot Moore MD [facility] [place] [address] Social History Tobacco Use Types Packs/Day Years Used Date Smoking Tobacco: Never Assessed Sex and Gender Information Value Date Recorded Sex Assigned at Not on file Gender Identity Not on file Sexual Orientation Not on file documented as of this encounter Miscellaneous Notes * Telephone Encounter - Prabhjot Moore MD - 08/17/2017 7:40 PM EDT Hospital: [facility] Caller: JAROD Valientenoreen Deleon no previous history of cardiovascular disease and had a right lower visual field defectsince Tuesday morning. MRI with and without contrast showed a lesion in the left occipital area suspicious for vascular malformation versus hemorrhagic infarct versus hemorrhagic mass. The ED provider notes that the patient was treated last week for herpes zoster and was treated for this and finished acyclovir cycle for this. She is no longer having facial pain regarding this. The ED provider notes that the patient other apparent history and has no family history is brain aneurysms. Does not note the patient's infectious status in regards to hep C, hep B, HIV. Noted that based on patient's findings would be beneficial to workup. Unfortunately, at this momentour facility is not taking any transfers unless they were ICU level of care, which this patient didnot appear to need. Advised that she should talk with our radiology department to see if in SWI sequence was performed on the MRI. Also recommended CTA of the wr[place] of [place] to look for any vascular malformations. Provider noted that she will be calling [facility] to see if she could transfer the patient there. Prabhjot Moore MD 08/17/17 N.B. Since we have not evaluated this patient, this is not an official consultation and we are not stating that a specific treatment decision is correct or incorrect. documented in this encounter Plan of Treatment Not on file documented as of this encounter Visit Diagnoses Not on filedocumented in this encounter
--- NOTE | 2023-12-16 07:45 | DI.MAMMO_ITS ---
Exam(s) MAMMO SCREENING EXAM: MAMMO SCREENING CLINICAL HISTORY: SCREENING, Z12.31 TECHNIQUE: Mammograms were interpreted according to the usual protocol including computer analysis w [employer] CAD system, tomosynthesis and C-view imaging. COMPARISON: 2021 FINDINGS: The breasts are composed of scattered fibroglandular densities, Breast Density category B. Left breast: No suspicious masses or suspicious microcalcifications are seen. No skin thickening or abnormal axillary lymph nodes are seen. There has been no significant change from prior exams. Right breast: There is question architectural distortion versus overlying densities in the upper oute r quadrant right breast. There is also a new area of nodularity. Spot compression views and ultraso und are requested for further evaluation. No suspicious calcifications or abnormal skin thickening. No abnormal lymph nodes. IMPRESSION: BI-RADS Category 0 - Incomplete: Need additional imaging evaluation of the right breast Left breast: Yearly screening mammography is recommended. Breast Density - Category B, scattered fibroglandular densities. A negative radiographic report should not delay biopsy if a dominant or clinically suspicious mass is present. Up to ten percent of cancers are not identified on mammography. A negative report may reinforce clinical impression. Adenosis and dense breasts may obscure an underlying neoplasm. False positive reports average 6 to 10%. Patient will receive a letter notifying them of these results.
== END 2023-12-16 01:08 ==
LOC: DI 00:48
PROVIDERS: PCP Family Medicine; Visit Provider Family Medicine
DX: Z12.31 Encounter for screening mammogram for malignant neoplasm of breast (principal)
CPT/HCPCS: 77063; 77067

== ENCOUNTER 2023-12-28 01:45 | Outpatient (CLI) | payer BC, SELFPAY ==
--- NOTE | 2023-12-28 | DI.US_ITS ---
Exam(s) MG MAMMO SCREEN CALL BACK UNI US BREAST RT COMPLETE EXAM: MG MAMMO SCREEN CALL BACK UNI and U/S breast RT complete CLINICAL HISTORY: ? Architectural distortion vs overlying densities, UOQ, Rt breast. TECHNIQUE: Craniocaudal and mediolateral oblique Full Field Digital Mammography views of the right b reast with Computer Aided Diagnosis followed by Tomosynthesis and right breast ultrasound. All 4 nati drants of the right breast were evaluated sonographically including the retroareolar region and the r ight axilla. COMPARISON: Comparison is made with prior examinations. FINDINGS: Mammography/Tomosynthesis: Masses/Architectural Distortion: There is a faint persistent area of architectural distortion in the upper outer quadrant of the right breast. There again seen well-circumscribed nodules in the upper o uter quadrant of the right breast. Microcalcifictions: No suspicious pleomorphic-type are seen. Skin Thickening/Nipple Retraction: None. Complete right breast US: Echotexture: Normal appearance of the glandular tissue. Shadowing: No suspicious foci. Cyst: Multiple cysts are seen in the outer right breast. The largest is at the 8 o'clock position 4 cm from the nipple. It is bilobed and measures 0.7 x 0.4 x 0.5 cm. Solid lesions: None seen. Ductal dilation: None. IMPRESSION: 1. Faint persistent area of architectural distortion in the upper outer quadrant of the right breast. No corresponding finding is seen sonographically. 2. MRI of the breasts are recommended for further evaluation. If MRI is not performed, biopsy is rec ommended. 3. The findings were discussed with the patient on the date of the examination. BI-RADS Category 0 - Incomplete: Need additional imaging evaluation Breast Density - Category B - Scattered areas of fibroglandular density Breast density Category C or D implies that the patient has dense breast tissue. Dense breast tissue can make it harder to find cancer on a mammogram. Dense breast tissue is also associated with an incr eased risk of breast cancer. This information about the result of the mammogram report was provided to the patient to raise their awareness. Use this report when you speak with the patient about their risks for breast cancer, which includes their family history. At that time, you may recommend additional screening tests (Ultrasoun d or MRI) as these tests may add significant information. A negative radiographic report should not delay biopsy if a dominant or clinically suspicious mass is present. Up to ten percent of cancers are not identified on mammography. A negative report may reinforce clinical impression. Adenosis and dense breasts may obscure an underlying neoplasm. False positive reports average 6 to 10%. Patient will receive a letter notifying them of these results.
== END 2023-12-28 02:05 ==
LOC: DI 01:45
PROVIDERS: PCP Family Medicine; Visit Provider Family Medicine
DX: Z12.31 Encounter for screening mammogram for malignant neoplasm of breast (principal); N63.11 Unspecified lump in the right breast, upper outer quadrant
CPT/HCPCS: 76642; 77063; 77067

== ENCOUNTER 2024-11-08 13:59 | Outpatient (REF) | payer OTHER, SELFPAY ==
[2024-11-08 13:52] LABS: ALT 27 U/L (14-59); AST 18 U/L (15-37); Albumin 3.9 g/dL (3.4-5.0); Alkaline Phosphatase 73 U/L (46-116); Anion Gap 8.2 mmol/L (3-11); BUN 9 mg/dL (7-18); Bilirubin, Total 0.4 mg/dL (0.2-1.0); CO2 27.8 mmol/L (21.0-32.0); Calcium 9.5 mg/dL (8.5-10.1); Calculated LDL 163 mg/dL (<100); Chloride 101 mmol/L (98-107); Cholesterol 250 mg/dL (<200); Estimated GFR 112.73 (mL/min/1.73m2); Glucose 98 mg/dL (74-106); HDL Cholesterol 72 mg/dL (>or=50); Potassium 4.2 mmol/L (3.5-5.1); Sodium 137 mmol/L (136-145); Total Protein 7.6 g/dL (6.4-8.2); Triglyceride 77 mg/dL (<150)
[2024-11-09 10:41] LABS: HIV-1/2 Ag & Ab Screen Negative (Negative)
[2024-11-09 11:10] LABS: Hepatitis C Ab w Rflx HCV PCR Negative (Negative)
== END 2024-11-08 14:00 | disposition home or self-care (01) ==
LOC: NCHCN 13:59
PROVIDERS: PCP Family Medicine; Visit Provider Family Medicine
DX: Z13.220 Encounter for screening for lipoid disorders (principal); Z11.59 Encounter for screening for other viral diseases; Z11.4 Encounter for screening for human immunodeficiency virus [HIV]; E66.9 Obesity, unspecified
CPT/HCPCS: 80053; 80061; 86803; 87389